=== PATIENT | male | born 1965 | race Caucasian/White ===

== ENCOUNTER 2016-11-13 15:45 | Emergency (ER) | payer OTHER ==
[2016-11-13 15:56] VITALS: RESP 18
--- NOTE | 2016-11-13 16:06 | ED ---
General Adult HPI - General Chief complaint: Chest Pain Stated complaint: Chest Pain Time Seen by Provider: 11/13/16 15:56 Source: patient, RN notes reviewed, old records reviewed Mode of arrival: wheelchair Limitations: no limitations - History of Present Illness Initial comments: This is a 51-year-old male to the ER for evaluation for this ER for evaluation of chest. Her chest pain and heaviness. Took a nitro with help. Patient also complaining of generalized body aches and pains. Patient has history of heart disease history of smoking. No prior recent cardiac evaluation. Patient stated this time his pain remains resolved but was sent to hospital by family doctor for evaluation - Related Data Home Medications Medication Instructions Recorded Confirmed Pregabalin [Lyrica] 150 mg PO TID 09/28/15 11/13/16 traZODone HCL [Desyrel] 100 mg PO HS 09/28/15 11/13/16 Albuterol Inhaler [Ventolin Hfa 2 puff INHALATION RT-Q6H PRN 11/13/16 11/13/16 Inhaler] DULoxetine HCL [Cymbalta] 60 mg PO HS 11/13/16 11/13/16 Umeclidinium [place] [Incruse 62.5 mcg INHALATION RT-DAILY 11/13/16 11/13/16 Ellipta] Allergies Allergy/AdvReac Type Severity Reaction Status Date / Time No Known Allergies Allergy Verified 11/13/16 15:55 Review of Systems ROS Statement: Those systems with pertinent positive or pertinent negative responses have been documented in the HPI. ROS Other: All systems not noted in ROS Statement are negative. Past Medical History Past Medical History: Fibromyalgia, Hyperlipidemia Additional Past Medical History / Comment(s): fibromyalgia Last Myocardial Infarction Date:: unknown History of Any Multi-Drug Resistant Organisms: None Reported Additional Past Surgical History / Comment(s): Spine operation, tumour removed Past Anesthesia/Blood Transfusion Reactions: No Reported Reaction Past Psychological History: Depression Smoking Status: Current every day smoker Past Alcohol Use History: Occasional Past Drug Use History: Marijuana General Exam Limitations: no limitations General appearance: alert, in no apparent distress Head exam: Present: atraumatic, normocephalic, normal inspection Eye exam: Present: normal appearance, PERRL, EOMI. Absent: scleral icterus, conjunctival injection, periorbital swelling ENT exam: Present: normal exam, mucous membranes moist Neck exam: Present: normal inspection. Absent: tenderness, meningismus, lymphadenopathy Respiratory exam: Present: normal lung sounds bilaterally. Absent: respiratory distress, wheezes, rales, rhonchi, stridor Cardiovascular Exam: Present: regular rate, normal rhythm, normal heart sounds. Absent: systolic murmur, diastolic murmur, rubs, gallop, clicks GI/Abdominal exam: Present: soft, normal bowel sounds. Absent: distended, tenderness, guarding, rebound, rigid Extremities exam: Present: normal inspection, full ROM, normal capillary refill. Absent: tenderness, pedal edema, joint swelling, calf tenderness Back exam: Present: normal inspection Neurological exam: Present: alert, oriented X3, CN II-XII intact Psychiatric exam: Present: normal affect, normal mood Skin exam: Present: warm, dry, intact, normal color. Absent: rash Course Vital Signs 11/13/16 11/13/16 15:53 17:01 Temperature 97.9 F 98.4 F Pulse Rate 62 56 L Respiratory 18 Rate Blood Pressure 119/68 136/76 O2 Sat by Pulse 98 97 Oximetry - Reevaluation(s) Reevaluation #1: 11/13/16 17:50 Patient has no chest pain or complaining of generalized body aches and pains EKG Findings - EKG Comments: EKG Findings:: EKG shows sinus rate, rate 55, DE 172, QRS 94, QTC 409 Medical Decision Making - Medical Decision Making 51 LDF reevaluation chest pain. History of heart disease history of smoking, patient has initial EKG and troponin negative, refusing to stay in the hospital at this time understands that he could be having a heart attack currently, patient again still refuses to stay in the hospital able to make decisions - Lab Data Result diagrams: 11/13/16 16:10 11/13/16 16:10 Lab Results 11/13/16 11/13/16 11/13/16 Range/Units 16:10 16:10 16:10 WBC 7.7 (3.8-10.6) k/uL RBC 4.55 (4.30-5.90) m/uL Hgb 15.2 (13.0-17.5) gm/dL Hct 44.2 (39.0-53.0) % MCV 97.1 (80.0-100.0) fL MCH 33.5 (25.0-35.0) pg MCHC 34.5 (31.0-37.0) g/dL RDW 13.0 (11.5-15.5) % Plt Count 165 (150-450) k/uL Neutrophils % 68 % Lymphocytes % 26 % Monocytes % 4 % Eosinophils % 1 % Basophils % 0 % Neutrophils # 5.3 (1.3-7.7) k/uL Lymphocytes # 2.0 (1.0-4.8) k/uL Monocytes # 0.3 (0-1.0) k/uL Eosinophils # 0.1 (0-0.7) k/uL Basophils # 0.0 (0-0.2) k/uL PT (9.0-12.0) sec INR (<1.2) APTT (22.0-30.0) sec Sodium 139 (137-145) mmol/L Potassium 4.0 (3.5-5.1) mmol/L Chloride 109 H (98-107) mmol/L Carbon Dioxide 24 (22-30) mmol/L Anion Gap 6 mmol/L BUN 13 (9-20) mg/dL Creatinine 0.92 (0.66-1.25) mg/dL Est GFR (MDRD) Af Amer >60 (>60 ml/min/1.73 sqM) Est GFR (MDRD) Non-Af >60 (>60 ml/min/1.73 sqM) Glucose 111 H (74-99) mg/dL Calcium 8.9 (8.4-10.2) mg/dL Magnesium 1.8 (1.6-2.3) mg/dL Total Bilirubin 0.4 (0.2-1.3) mg/dL AST 20 (17-59) U/L ALT 19 L (21-72) U/L Alkaline Phosphatase 58 (38-126) U/L Total Creatine Kinase 87 (55-170) U/L CK-MB (CK-2) 0.4 (0.0-2.4) ng/mL CK-MB (CK-2) Rel Index 0.5 Troponin I <0.012 (0.000-0.034) ng/mL Total Protein 6.5 (6.3-8.2) g/dL Albumin 3.9 (3.5-5.0) g/dL Lipase 316 H (23-300) U/L 11/13/16 Range/Units 16:10 WBC (3.8-10.6) k/uL RBC (4.30-5.90) m/uL Hgb (13.0-17.5) gm/dL Hct (39.0-53.0) % MCV (80.0-100.0) fL MCH (25.0-35.0) pg MCHC (31.0-37.0) g/dL RDW (11.5-15.5) % Plt Count (150-450) k/uL Neutrophils % % Lymphocytes % % Monocytes % % Eosinophils % % Basophils % % Neutrophils # (1.3-7.7) k/uL Lymphocytes # (1.0-4.8) k/uL Monocytes # (0-1.0) k/uL Eosinophils # (0-0.7) k/uL Basophils # (0-0.2) k/uL PT 10.4 (9.0-12.0) sec INR 1.0 (<1.2) APTT 24.1 (22.0-30.0) sec Sodium (137-145) mmol/L Potassium (3.5-5.1) mmol/L Chloride (98-107) mmol/L Carbon Dioxide (22-30) mmol/L Anion Gap mmol/L BUN (9-20) mg/dL Creatinine (0.66-1.25) mg/dL Est GFR (MDRD) Af Amer (>60 ml/min/1.73 sqM) Est GFR (MDRD) Non-Af (>60 ml/min/1.73 sqM) Glucose (74-99) mg/dL Calcium (8.4-10.2) mg/dL Magnesium (1.6-2.3) mg/dL Total Bilirubin (0.2-1.3) mg/dL AST (17-59) U/L ALT (21-72) U/L Alkaline Phosphatase (38-126) U/L Total Creatine Kinase (55-170) U/L CK-MB (CK-2) (0.0-2.4) ng/mL CK-MB (CK-2) Rel Index Troponin I (0.000-0.034) ng/mL Total Protein (6.3-8.2) g/dL Albumin (3.5-5.0) g/dL Lipase (23-300) U/L Critical Care Time Critical Care Time: Yes Total Critical Care Time: 31 Disposition Clinical Impression: Chest pain Disposition: HOME SELF-CARE Condition: Undetermined Instructions: Chest Pain (ED) Referrals: Joao Lopez DO [Primary Care Provider] - 1-2 days Maria Luz Bar MD [STAFF PHYSICIAN] - 1-2 days
[2016-11-13 16:23] LABS: Basophils % (A) 0 %; CH 32.4; CHCM 33.5; Eosinophils # (A) 0.1 k/uL (0-0.7); Eosinophils % (A) 1 %; HCT 44.2 % (39.0-53.0); HDW 2.06; HGB 15.2 gm/dL (13.0-17.5); Luc # (Auto) 0.09; Luc % (Auto) 1; Lymphocytes % (A) 26 %; MCH 33.5 pg (25.0-35.0); MCHC 34.5 g/dL (31.0-37.0); MCV 97.1 fL (80.0-100.0); Mean Platelet Volume 8.2; Monocytes # (A) 0.3 k/uL (0-1.0); Monocytes % (A) 4 %; Neutrophils # (A) 5.3 k/uL (1.3-7.7); Neutrophils % (A) 68 %; RBC 4.55 m/uL (4.30-5.90); WBC 7.7 k/uL (3.8-10.6)
--- NOTE | 2016-11-13 16:27 | XR ---
EXAMINATION TYPE: XR chest 2V DATE OF EXAM: 11/13/2016 COMPARISON: Chest x-ray September 28, 2015. HISTORY: Chest pain today. TECHNIQUE: Frontal and lateral views of the chest are obtained. FINDINGS: There is no focal air space opacity, pleural effusion, or pneumothorax seen. The cardiac silhouette size is within normal limits. The osseous structures are intact. IMPRESSION: No acute cardiopulmonary process. No significant change from prior.
[2016-11-13 16:32] LABS: Partial Thromboplastin Time 24.1 sec (22.0-30.0); Prothrombin Time 10.4 sec (9.0-12.0)
[2016-11-13 16:36] LABS: ALT 19 U/L (21-72); AST 20 U/L (17-59); Alkaline Phosphatase 58 U/L (38-126); Anion Gap 6 mmol/L; Blood Urea Nitrogen 13 mg/dL (9-20); Calcium 8.9 mg/dL (8.4-10.2); Carbon Dioxide 24 mmol/L (22-30); Chloride 109 mmol/L (98-107); Glucose 111 mg/dL (74-99); Magnesium 1.8 mg/dL (1.6-2.3); Non-African American GFR(MDRD) >60 (>60 ml/min/1.73 sqM); Sodium 139 mmol/L (137-145); Total Bilirubin 0.4 mg/dL (0.2-1.3); Total Protein 6.5 g/dL (6.3-8.2)
[2016-11-13 16:44] LABS: Creatine Kinase 87 U/L (55-170)
[2016-11-13 16:56] LABS: Creatine Kinase MB 0.4 ng/mL (0.0-2.4); Troponin I <0.012 ng/mL (0.000-0.034)
[2016-11-13 17:03] VITALS: BP 136/76; PULSE 56; TEMP 98.4
[2016-11-13] MEDS ORDERED: MORPHINE SULFATE 4 MG/ML SYRINGE IVP STA (17:48)
== END 2016-11-13 18:00 | disposition home or self-care (01) ==
LOC: EC 15:45
DX: R07.9 Chest pain, unspecified (principal); R52 Pain, unspecified; M79.7 Fibromyalgia; F32.9 Major depressive disorder, single episode, unspecified; F17.200 Nicotine dependence, unspecified, uncomplicated; Z79.899 Other long term (current) drug therapy
CPT/HCPCS: 36415; 80053; 82550; 82553; 83690; 83735; 84484; 85025; 85610; 85730; 71020; 99291; 96374; J2270

== ENCOUNTER → 2016-11-22 | Outpatient (CLI) | payer OTHER ==
--- NOTE | 2016-11-22 15:41 | XR ---
EXAMINATION TYPE: XR ribs RT DATE OF EXAM: 11/22/2016 COMPARISON: NONE HISTORY: Pain TECHNIQUE: 3 views submitted FINDINGS: Osseous structures intact. Visualized lung smith clear. Arthropathy of the AC joint noted. IMPRESSION: 1. No acute displaced rib fracture.
--- NOTE | 2016-11-22 15:42 | XR ---
EXAMINATION TYPE: XR thoracic spine complete DATE OF EXAM: 11/22/2016 COMPARISON: NONE HISTORY: Pain Alignment is anatomic. There is no compression deformities. Vertebral body height and disc interspa sera are maintained. Hypertrophic and degenerative change of the thoracic spine noted. Slight curvatur e of the spine. IMPRESSION: 1. Multilevel degenerative change.
== END | disposition home or self-care (01) ==
LOC: RADXRMAIN 14:45
PROVIDERS: ATTEND Family Medicine
DX: M47.814 Spondylosis without myelopathy or radiculopathy, thoracic region (principal); R07.81 Pleurodynia
CPT/HCPCS: 72072

== ENCOUNTER → 2017-07-02 | Outpatient (CLI) | payer OTHER ==
--- NOTE | 2017-07-02 16:54 | XR ---
EXAMINATION TYPE: XR chest 2V DATE OF EXAM: 07/02/2017 COMPARISON: chest x-ray 11/13/2016 HISTORY: Shortness of breath TECHNIQUE: Frontal and lateral views of the chest are obtained. FINDINGS: There is no focal air space opacity, pleural effusion, or pneumothorax seen. The cardiac silhouette size is within normal limits. Patient is rotated. The osseous structures are intact. IMPRESSION: No acute cardiopulmonary process.
== END | disposition home or self-care (01) ==
LOC: RADXRMAIN 11:01
PROVIDERS: ATTEND Family Medicine
DX: R06.02 Shortness of breath (principal)
CPT/HCPCS: 71046

== ENCOUNTER 2017-10-14 16:56 | Emergency (ER) | payer OTHER ==
[2017-10-14 17:09] VITALS: RESP 20; TEMP 97
[2017-10-14 17:25] LABS: Basophils % (A) 0 %; Eosinophils # (A) 0.1 k/uL (0-0.7); Eosinophils % (A) 1 %; HCT 47.1 % (39.0-53.0); Lymphocytes # (A) 1.1 k/uL (1.0-4.8); Lymphocytes % (A) 8 %; MCH 33.1 pg (25.0-35.0); MCHC 33.9 g/dL (31.0-37.0); MCV 97.4 fL (80.0-100.0); Monocytes # (A) 0.5 k/uL (0-1.0); Monocytes % (A) 3 %; Neutrophils # (A) 11.9 k/uL (1.3-7.7); Neutrophils % (A) 87 %; Platelet Count 185 k/uL (150-450); RBC 4.84 m/uL (4.30-5.90); RDW 13.7 % (11.5-15.5); WBC 13.6 k/uL (3.8-10.6)
--- NOTE | 2017-10-14 17:28 | ED ---
General Adult HPI - General Chief complaint: Chest Pain Stated complaint: Chest Pain Time Seen by Provider: 10/14/17 17:03 Source: EMS, RN notes reviewed, old records reviewed Mode of arrival: EMS Limitations: no limitations - History of Present Illness Initial comments: 52-year-old male history of fibromyalgia, chronic pain, and recurrent chest pain for which he takes nitroglycerin presents for evaluation of chest pain and epigastric pain. Patient was at the court house where he is receiving sentencing for an assault charge. He developed chest pain and epigastric pain. 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 No diaphoresis. Patient states he has had a heart attack before however he is not on any cardiac meds, no history of stenting, only medication he takes for his angina is nitroglycerin which he takes every several days for chest pain. - Related Data Home Medications Medication Instructions Recorded Confirmed Pregabalin [Lyrica] 150 mg PO TID 09/28/15 10/14/17 traZODone HCL [Desyrel] 100 mg PO HS 09/28/15 10/14/17 Albuterol Inhaler [Ventolin Hfa 2 puff INHALATION RT-Q6H PRN 11/13/16 10/14/17 Inhaler] DULoxetine HCL [Cymbalta] 60 mg PO HS 11/13/16 10/14/17 Umeclidinium [place] [Incruse 62.5 mcg INHALATION RT-DAILY 11/13/16 10/14/17 Ellipta] Budesonide/Formoterol Fumarate 2 puff INHALATION BID 10/14/17 10/14/17 [Symbicort 160-4.5 Mcg Inhaler] Ibuprofen [Motrin] 800 mg PO BID 10/14/17 10/14/17 Nitroglycerin Sl Tabs [Nitrostat] 0.4 mg SUBLINGUAL Q5M PRN 10/14/17 10/14/17 Simvastatin [Zocor] 40 mg PO HS 10/14/17 10/14/17 Allergies Allergy/AdvReac Type Severity Reaction Status Date / Time No Known Allergies Allergy Verified 10/14/17 17:34 Review of Systems ROS Statement: Those systems with pertinent positive or pertinent negative responses have been documented in the HPI. ROS Other: All systems not noted in ROS Statement are negative. Past Medical History Past Medical History: Fibromyalgia, Hyperlipidemia Additional Past Medical History / Comment(s): fibromyalgia Last Myocardial Infarction Date:: unknown History of Any Multi-Drug Resistant Organisms: None Reported Additional Past Surgical History / Comment(s): Spine operation, tumour removed Past Anesthesia/Blood Transfusion Reactions: No Reported Reaction Past Psychological History: Depression Smoking Status: Current every day smoker Past Alcohol Use History: Occasional Past Drug Use History: Marijuana General Exam Limitations: no limitations General appearance: alert, in no apparent distress Head exam: Present: atraumatic, normocephalic Eye exam: Present: normal appearance, PERRL, EOMI ENT exam: Present: normal exam Neck exam: Present: normal inspection. Absent: tenderness, meningismus Respiratory exam: Present: normal lung sounds bilaterally, chest wall tenderness. Absent: respiratory distress Cardiovascular Exam: Present: regular rate, normal rhythm GI/Abdominal exam: Present: soft, tenderness (Mild epigastric tenderness to palpation). Absent: distended, guarding Extremities exam: Present: normal inspection, normal capillary refill. Absent: pedal edema, calf tenderness Neurological exam: Present: alert, oriented X3, CN II-XII intact. Absent: motor sensory deficit Psychiatric exam: Present: normal affect, normal mood Skin exam: Present: warm, dry, intact. Absent: cyanosis, diaphoretic Course Vital Signs 10/14/17 10/14/17 17:03 18:00 Temperature 97.0 F L Pulse Rate 57 L 74 Respiratory 20 20 Rate Blood Pressure 160/91 139/86 O2 Sat by Pulse 98 99 Oximetry EKG Findings - EKG Comments: EKG Findings:: EKG sinus rhythm with sinus arrhythmia, right atrial enlargement , incomplete right bundle branch block. Rate of 66, MO interval 164. QRS duration 94, QTC 431. T waves are upright, there is no ST segment elevation or depression. Medical Decision Making - Medical Decision Making 52-year-old male presenting with chest pain and epigastric pain. On exam patient does have some anterior chest wall tenderness and some epigastric abdominal tenderness. No rebound or guarding. Patient does admit to alcohol consumption although he states he has not had a drink in the past several days. Laboratory studies revealed mild leukocytosis 13.6, stable hemoglobin. Troponin is negative. Lipase is obtained, this is positive at 1300. Chest x- ray negative for any acute disease. Patient has no known history of pancreatitis. He is informed of this lab result. He will return with worsening or changing symptoms. He was instructed to maintain a clear liquid diet. Please abstain from alcohol. He will be given outpatient gastroenterology follow-up. Patient is agreeable with this plan. No nausea vomiting in the emergency department. - Lab Data Result diagrams: 10/14/17 17:05 10/14/17 17:05 Lab Results 10/14/17 10/14/17 10/14/17 Range/Units 17:05 17:05 17:05 WBC 13.6 H (3.8-10.6) k/uL RBC 4.84 (4.30-5.90) m/uL Hgb 16.0 (13.0-17.5) gm/dL Hct 47.1 (39.0-53.0) % MCV 97.4 (80.0-100.0) fL MCH 33.1 (25.0-35.0) pg MCHC 33.9 (31.0-37.0) g/dL RDW 13.7 (11.5-15.5) % Plt Count 185 (150-450) k/uL Neutrophils % 87 % Lymphocytes % 8 % Monocytes % 3 % Eosinophils % 1 % Basophils % 0 % Neutrophils # 11.9 H (1.3-7.7) k/uL Lymphocytes # 1.1 (1.0-4.8) k/uL Monocytes # 0.5 (0-1.0) k/uL Eosinophils # 0.1 (0-0.7) k/uL Basophils # 0.0 (0-0.2) k/uL PT (9.0-12.0) sec INR (<1.2) APTT (22.0-30.0) sec Sodium 138 (137-145) mmol/L Potassium 3.8 (3.5-5.1) mmol/L Chloride 104 (98-107) mmol/L Carbon Dioxide 20 L (22-30) mmol/L Anion Gap 14 mmol/L BUN 16 (9-20) mg/dL Creatinine 0.89 (0.66-1.25) mg/dL Est GFR (CKD-EPI)AfAm >90 (>60 ml/min/1.73 sqM) Est GFR (CKD-EPI)NonAf >90 (>60 ml/min/1.73 sqM) Glucose 109 H (74-99) mg/dL Calcium 9.5 (8.4-10.2) mg/dL Magnesium 2.0 (1.6-2.3) mg/dL Total Bilirubin 0.6 (0.2-1.3) mg/dL AST 19 (17-59) U/L ALT 17 L (21-72) U/L Alkaline Phosphatase 67 (38-126) U/L Total Creatine Kinase 49 L (55-170) U/L CK-MB (CK-2) <0.2 (0.0-2.4) ng/mL CK-MB (CK-2) Rel Index Troponin I <0.012 (0.000-0.034) ng/mL NT-Pro-B Natriuret Pep pg/mL Total Protein 7.3 (6.3-8.2) g/dL Albumin 4.6 (3.5-5.0) g/dL Lipase 1316 H (23-300) U/L 10/14/17 10/14/17 Range/Units 17:05 17:05 WBC (3.8-10.6) k/uL RBC (4.30-5.90) m/uL Hgb (13.0-17.5) gm/dL Hct (39.0-53.0) % MCV (80.0-100.0) fL MCH (25.0-35.0) pg MCHC (31.0-37.0) g/dL RDW (11.5-15.5) % Plt Count (150-450) k/uL Neutrophils % % Lymphocytes % % Monocytes % % Eosinophils % % Basophils % % Neutrophils # (1.3-7.7) k/uL Lymphocytes # (1.0-4.8) k/uL Monocytes # (0-1.0) k/uL Eosinophils # (0-0.7) k/uL Basophils # (0-0.2) k/uL PT 10.2 (9.0-12.0) sec INR 1.0 (<1.2) APTT 23.3 (22.0-30.0) sec Sodium (137-145) mmol/L Potassium (3.5-5.1) mmol/L Chloride (98-107) mmol/L Carbon Dioxide (22-30) mmol/L Anion Gap mmol/L BUN (9-20) mg/dL Creatinine (0.66-1.25) mg/dL Est GFR (CKD-EPI)AfAm (>60 ml/min/1.73 sqM) Est GFR (CKD-EPI)NonAf (>60 ml/min/1.73 sqM) Glucose (74-99) mg/dL Calcium (8.4-10.2) mg/dL Magnesium (1.6-2.3) mg/dL Total Bilirubin (0.2-1.3) mg/dL AST (17-59) U/L ALT (21-72) U/L Alkaline Phosphatase (38-126) U/L Total Creatine Kinase (55-170) U/L CK-MB (CK-2) (0.0-2.4) ng/mL CK-MB (CK-2) Rel Index Troponin I (0.000-0.034) ng/mL NT-Pro-B Natriuret Pep 42 pg/mL Total Protein (6.3-8.2) g/dL Albumin (3.5-5.0) g/dL Lipase (23-300) U/L Disposition Clinical Impression: Pancreatitis, Chest pain Disposition: HOME SELF-CARE Condition: Fair Instructions: Chest Pain (ED), Pancreatitis (ED) Is patient prescribed a controlled substance at d/c from ED?: No Referrals: Joao Lopez DO [Primary Care Provider] - 1-2 days Desmond Cortez MD [STAFF PHYSICIAN] - 1-2 days Time of Disposition: 18:25
[2017-10-14 17:41] LABS: Partial Thromboplastin Time 23.3 sec (22.0-30.0); Prothrombin Time 10.2 sec (9.0-12.0)
--- NOTE | 2017-10-14 17:41 | XR ---
EXAMINATION TYPE: XR chest 2V DATE OF EXAM: 10/14/2017 COMPARISON: 07/02/2017 HISTORY: Chest pain TECHNIQUE: Frontal and lateral views of the chest are obtained. FINDINGS: Heart and mediastinum are normal. Lungs are clear. Diaphragm is normal. There are chest le ads. Bony thorax is intact. IMPRESSION: Normal chest. No change.
[2017-10-14 17:43] LABS: Creatine Kinase 49 U/L (55-170)
[2017-10-14 17:45] LABS: ALT 17 U/L (21-72); AST 19 U/L (17-59); Albumin 4.6 g/dL (3.5-5.0); Alkaline Phosphatase 67 U/L (38-126); Anion Gap 14 mmol/L; Blood Urea Nitrogen 16 mg/dL (9-20); Calcium 9.5 mg/dL (8.4-10.2); Carbon Dioxide 20 mmol/L (22-30); Chloride 104 mmol/L (98-107); Glucose 109 mg/dL (74-99); Lipase 1316 U/L (23-300); Potassium 3.8 mmol/L (3.5-5.1); Sodium 138 mmol/L (137-145); Total Bilirubin 0.6 mg/dL (0.2-1.3); Total Protein 7.3 g/dL (6.3-8.2)
[2017-10-14 17:55] LABS: Creatine Kinase MB <0.2 ng/mL (0.0-2.4); Troponin I <0.012 ng/mL (0.000-0.034)
[2017-10-14 18:03] VITALS: BP 139/86; PULSE 74
== END 2017-10-14 18:58 | disposition home or self-care (01) ==
LOC: EC 16:56
DX: K85.90 Acute pancreatitis without necrosis or infection, unspecified (principal); R07.89 Other chest pain; D72.829 Elevated white blood cell count, unspecified; R51 Headache; H92.02 Otalgia, left ear; M79.7 Fibromyalgia; E78.5 Hyperlipidemia, unspecified; F32.9 Major depressive disorder, single episode, unspecified; F17.200 Nicotine dependence, unspecified, uncomplicated; Z79.1 Long term (current) use of non-steroidal anti-inflammatories (NSAID); Z79.51 Long term (current) use of inhaled steroids; Z79.899 Other long term (current) drug therapy
CPT/HCPCS: 36415; 71046; 80053; 82550; 82553; 83690; 83735; 83880; 84484; 85025; 85610; 85730; 93005; 99285

== ENCOUNTER 2017-11-15 22:23 | Emergency (ER) | payer OTHER ==
[2017-11-15 22:50] VITALS: BP 107/60; PULSE 75; RESP 20; TEMP 98.1
[2017-11-16] MEDS ORDERED: DIPH,PERTUS(ACELL)TETVAC-LF 0.5 ML VIAL IM ONE (00:20)
--- NOTE | 2017-11-16 00:48 | XR ---
EXAMINATION TYPE: XR hand complete LT DATE OF EXAM: 11/16/2017 COMPARISON: NONE HISTORY: Metacarpal swelling TECHNIQUE: 4 views FINDINGS: Metacarpals are intact. I see no fracture nor dislocation. Joint spaces are normal. There a re no erosions. IMPRESSION: Negative left hand exam.
--- NOTE | 2017-11-16 00:50 | XR ---
EXAMINATION TYPE: XR finger RT DATE OF EXAM: 11/16/2017 COMPARISON: NONE HISTORY: Laceration fourth digit TECHNIQUE: 3 views FINDINGS: I see no fracture nor dislocation. Joint spaces are fairly normal. There are no erosions. IMPRESSION: No acute abnormality of the right ring finger. :
--- NOTE | 2017-11-16 01:40 | ED ---
General Adult HPI - General Chief complaint: Wound/Laceration Stated complaint: Finger Lac Time Seen by Provider: 11/16/17 00:09 Source: patient, family, RN notes reviewed Mode of arrival: ambulatory Limitations: no limitations - History of Present Illness Initial comments: 52-year-old male presents to the emergency department for a chief complaint of laceration 30 hours. Patient states he cut his right ring finger on a curved blade but was unable to come to the emergency department yesterday. Patient also states he accidentally hit his left hand against a piece of plywood and now has swelling in the left hand. This happened about 3 days ago. She denies fevers or chills. Patient denies drainage from the laceration. Patient denies any other injuries. Patient has no other complaints at this time including shortness of breath, chest pain, abdominal pain, nausea or vomiting, headache, or visual changes. - Related Data Home Medications Medication Instructions Recorded Confirmed Pregabalin [Lyrica] 150 mg PO TID 09/28/15 10/14/17 traZODone HCL [Desyrel] 100 mg PO HS 09/28/15 10/14/17 Albuterol Inhaler [Ventolin Hfa 2 puff INHALATION RT-Q6H PRN 11/13/16 10/14/17 Inhaler] DULoxetine HCL [Cymbalta] 60 mg PO HS 11/13/16 10/14/17 Umeclidinium [place] [Incruse 62.5 mcg INHALATION RT-DAILY 11/13/16 10/14/17 Ellipta] Budesonide/Formoterol Fumarate 2 puff INHALATION BID 10/14/17 10/14/17 [Symbicort 160-4.5 Mcg Inhaler] Ibuprofen [Motrin] 800 mg PO BID 10/14/17 10/14/17 Nitroglycerin Sl Tabs [Nitrostat] 0.4 mg SUBLINGUAL Q5M PRN 10/14/17 10/14/17 Simvastatin [Zocor] 40 mg PO HS 10/14/17 10/14/17 Previous Rx's Medication Instructions Recorded Cephalexin [Keflex] 500 mg PO Q8H #20 cap 11/16/17 Allergies Allergy/AdvReac Type Severity Reaction Status Date / Time No Known Allergies Allergy Verified 11/15/17 22:50 Review of Systems ROS Statement: Those systems with pertinent positive or pertinent negative responses have been documented in the HPI. ROS Other: All systems not noted in ROS Statement are negative. Past Medical History Past Medical History: Fibromyalgia, Hyperlipidemia Additional Past Medical History / Comment(s): fibromyalgia Last Myocardial Infarction Date:: unknown History of Any Multi-Drug Resistant Organisms: None Reported Additional Past Surgical History / Comment(s): Spine operation, tumour removed Past Anesthesia/Blood Transfusion Reactions: No Reported Reaction Past Psychological History: Depression Smoking Status: Current every day smoker Past Alcohol Use History: Occasional Past Drug Use History: Marijuana General Exam Limitations: no limitations General appearance: alert, in no apparent distress Head exam: Present: atraumatic, normocephalic, normal inspection Eye exam: Present: normal appearance. Absent: scleral icterus, conjunctival injection ENT exam: Present: normal exam, mucous membranes moist Neck exam: Present: normal inspection, full ROM. Absent: tenderness, meningismus, lymphadenopathy Respiratory exam: Present: normal lung sounds bilaterally. Absent: respiratory distress, wheezes, rales, rhonchi, stridor Cardiovascular Exam: Present: regular rate, normal rhythm, normal heart sounds. Absent: systolic murmur, diastolic murmur, rubs, gallop, clicks Extremities exam: Present: full ROM (Full range of motion of the right fourth digit including MCP, PIP, and DIP joints. Full range of motion of left hand), tenderness (Tenderness over the third MCP joint of the left hand with minor swelling.), normal capillary refill (Capillary refill less than 2 seconds in the right and left upper extremities. Radial pulse 2+ in upper extremities bilaterally.), other (1.5 cm laceration to the finger pad of the right fourth digit. Bleeding controlled. No spreading redness or signs of infection at this time. No drainage) Neurological exam: Present: alert, oriented X3, CN II-XII intact Psychiatric exam: Present: normal affect, normal mood Course Vital Signs 11/15/17 22:45 Temperature 98.1 F Pulse Rate 75 Respiratory 20 Rate Blood Pressure 107/60 O2 Sat by Pulse 98 Oximetry Medical Decision Making - Medical Decision Making 52-year-old male presents to the emergency determine for chief complaint of laceration on the right ring finger about 30 hours ago. X-ray of the right finger is negative. Discussed with patient that because wound was open for so long it is unwise to close it at this point as chance of infection can increase. Therefore wound was soaked in soap and water and cleaned with iodine. It was closed with Steri-Strips. Patient also has left hand pain after hitting it against a pipe ordered. X-ray was negative of this. Patient was educated on rice therapy. Patient will also be given Keflex to prevent any infection in the finger. He was given tetanus in the emergency department. Discussed signs of infection and return parameters extensively. Patient aware of close proximity to tendon and need to closely monitor. He will follow up with primary care in 1-2 days for wound recheck Disposition Clinical Impression: Laceration, Left hand pain Disposition: HOME SELF-CARE Condition: Good Instructions: Laceration (ED), RICE Therapy (ED) Additional Instructions: Take prescriptions as directed. Please take Motrin and Tylenol for pain. Please rest ice and elevate the left hand. Keep Steri-Strips on until they fall off. Keep the area clean. Monitor for signs of infection such as spreading redness or streaking redness and return if these occur. Follow-up with primary care for wound recheck in one to 2 days. Prescriptions: Cephalexin [Keflex] 500 mg PO Q8H #20 cap Is patient prescribed a controlled substance at d/c from ED?: No Referrals: Joao Lopez DO [Primary Care Provider] - 1-2 days Time of Disposition: 01:37
== END 2017-11-16 01:54 | disposition home or self-care (01) ==
LOC: EC 22:23
DX: S61.214A Laceration without foreign body of right ring finger without damage to nail, initial encounter (principal); M79.642 Pain in left hand; M79.7 Fibromyalgia; E78.5 Hyperlipidemia, unspecified; F32.9 Major depressive disorder, single episode, unspecified; F17.200 Nicotine dependence, unspecified, uncomplicated; Z23 Encounter for immunization; Z79.1 Long term (current) use of non-steroidal anti-inflammatories (NSAID); Z79.51 Long term (current) use of inhaled steroids; Z79.899 Other long term (current) drug therapy; W26.8XXA Contact with other sharp object(s), not elsewhere classified, initial encounter; Y92.89 Other specified places as the place of occurrence of the external cause
CPT/HCPCS: 90471; 90715; 99283

== ENCOUNTER → 2018-03-24 | Outpatient (CLI) | payer OTHER ==
--- NOTE | 2018-03-24 13:19 | XR ---
EXAMINATION TYPE: XR knee complete LT DATE OF EXAM: 03/24/2018 COMPARISON: NONE HISTORY: Pain TECHNIQUE: Four views are submitted. FINDINGS: Joint spaces are preserved. There is soft tissue density or fluid within the suprapatellar bursa and there is hypertrophic spurring and narrowing of the joint space. There is a tiny density along the me dial compartment of the knee joint which may represent chondrocalcinosis or may be external to the april int. IMPRESSION: 1. Hypertrophic arthropathy with a suprapatellar bursal fluid collection. Recommend follow-up MRI.
--- NOTE | 2018-03-24 13:33 | XR ---
EXAMINATION TYPE: XR finger LT DATE OF EXAM: 03/24/2018 COMPARISON: NONE HISTORY: Pain TECHNIQUE: Three views are submitted. FINDINGS: There is a displaced intra-articular fracture involving the base of the distal phalanx. Soft tissue e joi noted. IMPRESSION: 1. Displaced intra-articular fracture along the dorsal surface distal phalanx fourth digit.
== END ==
LOC: RADXRMAIN 12:47
PROVIDERS: ATTEND Physician Assistant
DX: S62.635A Displaced fracture of distal phalanx of left ring finger, initial encounter for closed fracture (principal); M12.862 Other specific arthropathies, not elsewhere classified, left knee

== ENCOUNTER → 2018-11-07 | Outpatient (CLI) | payer OTHER ==
--- NOTE | 2018-11-07 14:08 | XR ---
EXAMINATION TYPE: XR chest 2V DATE OF EXAM: 11/07/2018 COMPARISON: Prior chest x-ray 10/14/2017 HISTORY: Chest pain TECHNIQUE: Frontal and lateral views of the chest are obtained. FINDINGS: There is no focal air space opacity, pleural effusion, or pneumothorax seen. The cardiac silhouette size is within normal limits. There is mild spinal curvature. The osseous structures are intact. IMPRESSION: No acute cardiopulmonary process.
== END | disposition home or self-care (01) ==
LOC: RADXRMAIN 13:41
PROVIDERS: ATTEND Physician Assistant
DX: R07.89 Other chest pain (principal)
CPT/HCPCS: 71046

== ENCOUNTER → 2018-11-17 | Outpatient (CLI) | payer OTHER ==
[~2018-11-17] MED LIST: REGADENOSON 0.4 MG/5 ML SYRINGE IV ONE
--- NOTE | 2018-11-17 10:19 | P.STRESS ---
- Stress Test Note Stress Test Results/Findings: Exam Performed: NM stress lexiscan cardiolite Exam Date: 11/17/18 Reason for Exam: CP, JACKY Height: 5 ft 5 in Weight: 59.874 kg Protocol: LEXISCAN CARDIOLITE STRESS Stage: NA Duration of Exercise: NA Resting Heart Rate: 47 Resting Blood Pressure: 137/79 Maximum Achieved Heart Rate: 88 Maximum Achieved Blood Pressure: 137/79 85% PMHR: 142 100% PMHR: 167 METS: NA Technologist Comment: Stress Test Results/Findings: Baseline heart rate 47 beats a minute Baseline blood pressure 137/79 mmHg jessica ent is received Lexiscan infusion per protocol Baseline 12-lead ECG showed sinus bradycardia normal MO interval incomplete right bundle branch block normal ST segments Patient became nauseous and throwing up post infusion Subtle ST depression in the lateral precordial leads of 0.5 mm which resolved quickly Blood pressure remained stable heart rates remained stable Nuclear portion will be reported separately Impression Mild ECG abnormalities of the 0.[address] depression in the lateral precordial leads with Lexiscan infusion
--- NOTE | 2018-11-17 11:17 | NM ---
EXAMINATION TYPE: NM stress lexiscan cardiolite DATE OF EXAM: 11/17/2018 COMPARISON: 03/07/2010 HISTORY: Chest pain TECHNIQUE: After the intravenous administration of 10.1 mCi Tc 99m Sestamibi - Cardiolite resting SP ECT images acquired 40 minutes post injection. The patient received 0.4mg Lexiscan, 25.9 mCi Tc 99m Sestamibi - Stress images obtained [address] injection FINDINGS: Review of stress and rest SPECT images demonstrates area stress-induced reversible ischemia involving the inferior and inferolateral myocardium.. Gated analysis shows normal wall motion with an estimat ed left ventricular ejection fraction of 51 %. Report called to the referring physician. IMPRESSION: 1. Findings are compatible with stress-induced reversible ischemia involving the inferior and inferio r lateral myocardium. A [place] level critical message alert has been initiated for Joao Lopez DO via the [employer] Critical Results System on 11/17/2018 11:14 AM. This message alert has been sent to Joao donato DO via the preferences provided by the clinician for the receipt of Radiology Critical Findings. Message ID [id number].
--- NOTE | 2018-11-17 12:55 | EST ---
Stress Test Results/Findings: Exam Performed: NM stress lexiscan cardiolite Exam Date: 11/17/18 Reason for Exam: CP, JACKY Height: 5 ft 5 in Weight: 59.874 kg Protocol: LEXISCAN CARDIOLITE STRESS Stage: NA Duration of Exercise: NA Resting Heart Rate: 47 Resting Blood Pressure: 137/79 Maximum Achieved Heart Rate: 88 Maximum Achieved Blood Pressure: 137/79 85% PMHR: 142 100% PMHR: 167 METS: NA Technologist Comment: Stress Test Results/Findings: Baseline heart rate 47 beats a minute Baseline blood pressure 137/79 mmHg patient is received Lexiscan infusion per protocol Baseline 12-lead ECG showed sinus bradycardia normal AL interval incomplete right bundle branch block normal ST segments Patient became nauseous and throwing up post infusion Subtle ST depression in the lateral precordial leads of 0.5 mm which resolved quickly Blood pressure remained stable heart rates remained stable Nuclear portion will be reported separately Impression Mild ECG abnormalities of the 0.[address] depression in the lateral precordial leads with Lexiscan infusion Additional CC's: Joao GOLDEN
== END | disposition home or self-care (01) ==
LOC: RADNMMAIN 07:43
PROVIDERS: ATTEND Family Medicine
DX: R94.31 Abnormal electrocardiogram [ECG] [EKG] (principal); R07.89 Other chest pain
CPT/HCPCS: 93017; 78452; A9500; J2785

== ENCOUNTER → 2018-11-25 | Outpatient (CLI) | payer OTHER ==
--- NOTE | 2018-11-26 02:31 | MR ---
EXAMINATION TYPE: MR knee LT wo con DATE OF EXAM: 11/25/2018 COMPARISON: None HISTORY: Pain in left knee TECHNIQUE: Multiplanar, multisequence imaging of the left knee is performed without IV contrast. FINDINGS: The anterior and posterior cruciate ligaments are intact. There is a mild knee joint effusion. I see no bony destructive process. There is no evidence of a fracture. Joint spaces are fairly normal. The collateral ligaments appear intact. The lateral meniscus shows a small vertical tear of the anterior horn. There is a oblique horizontal tear of the posterior horn of the medial meniscus extending to the infe rior surface. The patella is intact. I see no focal bone destruction. IMPRESSION: Small knee joint effusion. Small vertical tear anterior horn of the lateral meniscus. Oblique tear posterior horn medial meniscus.
== END | disposition home or self-care (01) ==
LOC: RADMRIMAIN 16:35
PROVIDERS: ATTEND Physician Assistant
DX: S83.282A Other tear of lateral meniscus, current injury, left knee, initial encounter (principal); S83.242A Other tear of medial meniscus, current injury, left knee, initial encounter

== ENCOUNTER 2018-12-01 06:21 | Day surgery (SDC) | payer OTHER ==
[2018-12-01] MEDS ORDERED: ASPIRIN 325 MG TAB PO STA (06:53)
[2018-12-01] MEDS ORDERED: NITROGLYCERIN SL TABS 0.4 MG TAB SUBLINGUAL PRN ×3 (06:53→08:53)
[2018-12-01] MEDS ORDERED: ATORVASTATIN 80 MG TAB PO STA (06:53)
[2018-12-01] MEDS ORDERED: ALPRAZolam 0.5 MG TAB PO PRN (06:53)
[2018-12-01] MEDS ORDERED: SODIUM CHLORIDE 0.9% 1,000 ML in EMPTY BAG 1 BAG IV ONE (06:53)
[2018-12-01] MEDS ORDERED: ALPRAZolam 0.25 MG TAB PO PRN (06:53)
[2018-12-01 07:27] LABS: Basophils # (A) 0.1 k/uL (0-0.2); Basophils % (A) 1 %; Eosinophils # (A) 0.2 k/uL (0-0.7); Eosinophils % (A) 2 %; HCT 46.9 % (39.0-53.0); HGB 15.4 gm/dL (13.0-17.5); Lymphocytes # (A) 1.8 k/uL (1.0-4.8); Lymphocytes % (A) 25 %; MCH 33.9 pg (25.0-35.0); MCV 102.7 fL (80.0-100.0); Macrocytosis Slight; Mean Platelet Volume 8.7; Monocytes # (A) 0.5 k/uL (0-1.0); Monocytes % (A) 7 %; Neutrophils # (A) 4.6 k/uL (1.3-7.7); Neutrophils % (A) 64 %; Platelet Count 181 k/uL (150-450); RBC 4.56 m/uL (4.30-5.90); RDW 14.5 % (11.5-15.5); WBC 7.1 k/uL (3.8-10.6)
[2018-12-01 07:38] LABS: African American GFR (CKD) >90 (>60 ml/min/1.73 sqM); Anion Gap 7 mmol/L; Blood Urea Nitrogen 15 mg/dL (9-20); Calcium 9.8 mg/dL (8.4-10.2); Carbon Dioxide 25 mmol/L (22-30); Chloride 110 mmol/L (98-107); Glucose 104 mg/dL (74-99); Non-African American GFR(CKD) 85 (>60 ml/min/1.73 sqM); Potassium 4.7 mmol/L (3.5-5.1); Sodium 142 mmol/L (137-145)
[2018-12-01] MEDS ORDERED: fentaNYL (PF) 50 MCG/ML 2 ML AMP IV ONE (07:57)
[2018-12-01] MEDS: MIDAZOLAM PF (FBP) 2 MG/2 ML VIAL IV ONE ×2 (07:57→08:01)
[2018-12-01] MEDS ORDERED: LIDOCAINE 1% INJ 10MG/ML (20 ML MDV) SQ ONE (08:00)
[2018-12-01] MEDS ORDERED: BIVALIRUDIN BOLUS 250 MG/50 ML IV ONE (08:20)
[2018-12-01] MEDS ORDERED: BIVALIRUDIN 250 MG in SODIUM CHLORIDE 0.9% 50 ML IV ONE (08:21)
[2018-12-01] MEDS ORDERED: ATROPINE SULFATE 0.1 MG/ML 10ML SYRINGE IV ONE (08:26)
[2018-12-01] MEDS ORDERED: NITROGLYCERIN 1000MCG/10ML SYRINGE INTRACORON ONE (08:33)
[2018-12-01] MEDS ORDERED: IOPAMIDOL-370 100ML BTL INJ ONE (08:39)
[2018-12-01] MEDS ORDERED: IOPAMIDOL-300 50ML BTL INJ ONE (08:44)
[2018-12-01] MEDS ORDERED: PRASUGREL 10 MG TAB PO ONE (08:50)
[2018-12-01] MEDS ORDERED: ALBUTEROL NEBULIZED 2.5 MG/3 ML INHALATION PRN (08:52)
[2018-12-01] MEDS ORDERED: ATROPINE SULFATE 0.1 MG/ML 10ML SYRINGE IV PRN (08:53)
[2018-12-01] MEDS ORDERED: ZOLPIDEM 5 MG TAB PO PRN (08:53)
[2018-12-01] MEDS ORDERED: RX INFO: IV CONTRAST WAS GIVEN 1 EACH MISC MISCELLANE PRN (08:53)
[2018-12-01] MEDS ORDERED: MAG HYDROX/AL HYDROX/SIMETH 30 ML CUP PO PRN (08:53)
--- NOTE | 2018-12-01 09:00 | CC ---
CARDIAC CATHETERIZATION REPORT INDICATION: Chest pain with abnormal stress test. PROCEDURE NOTE: After obtaining informed consent, left heart catheterization and coronary angiogram were performed via the right femoral artery using standard Jimbo catheters. The patient tolerated the procedure well without any obvious immediate complications. Patient received moderate conscious sedation. Total sedation time was 15 minutes. FINDINGS: 1. HEMODYNAMICS: Left ventricular end-diastolic pressure was 12 to 14 mm. There is no significant gradient across the aortic valve. 2. LEFT VENTRICULOGRAM: Left ventriculogram is not performed. 3. ANGIOGRAPHIC DATA: Left main coronary artery appears calcified but is free of significant stenosis. Divides into left anterior descending coronary artery and circumflex coronary artery. Circumflex coronary artery is subtotally occluded in its proximal part. There are extensive collaterals to the distal RCA. LAD has an occluded small caliber diagonal branch with a mild to moderate atherosclerotic plaque in the LAD. LAD itself is a very small caliber vessel. The LAD in the proximal part appears calcified but there are no focal hemodynamically significant lesion. Right coronary artery is a large dominant vessel that shows a 95% stenosis in its midportion. There is a mild to moderate atherosclerotic plaque in the proximal part also. CONCLUSIONS: 1. Chronically occluded circumflex coronary artery. 2. A 95% focal stenosis in the mid RCA. 3. Collaterals from the left to right system. PLAN: Angiographic data was reviewed by Dr. Stafford the on-call meter tester who will proceed with angioplasty of the same. MMDEXTER / ROBLESN: [id number] /
--- NOTE | 2018-12-01 09:03 | LTR ---
December 01, 2018 Re: Isrrael Matt Dear Dr. Lopez: I performed cardiac catheterization on Isrrael Gutierrez. A detailed catheterization note is enclosed for your records. In brief, the cardiac catheterization reveals a 95% stenosis involving mid RCA and chronically occluded circumflex coronary artery. The patient's stress test abnormalities probably related to the lesion in the right coronary artery and the patient will undergo angioplasty with stent placement of the same. Sincerely, MD JENNIFER Troy / ROBLESN: [id number] /
--- NOTE | 2018-12-01 09:30 | PTCA ---
PERCUTANEOUSTRANS CORORONARY ANGIOGRAPHY DATE OF SERVICE: December 01, 2018 PERFORMING PHYSICIAN: Isaías Stafford MD, certified travel counselor. PROCEDURE PERFORMED: Successful stenting of the mid right coronary artery using 2.75 x 15 mm Xience SHASTA which was postdilated using 3 mm balloon with an excellent angiographic result and reduction of stenosis from 100% to 0%. INDICATION: This is a 53-year-old gentleman who sees Dr. Ayala in the office as an outpatient who was experiencing symptoms of chest discomfort and underwent myocardial perfusion imaging stress test and that revealed inferolateral ischemia. He underwent a heart catheterization earlier today by Dr. Ayala and that revealed occluded RCA in the mid portion on short segment with contralateral collaterals. Because of that, a PCI of the RCA was advised. APPROACH: Right common femoral artery. COMPLICATION: None. LEVEL OF SEDATION: Moderate with sedation length of 15 minutes. PROCEDURE DESCRIPTION: Please refer to diagnostic heart catheterization that was performed by Dr. Ayala earlier today. Anticoagulation was initiated using Angiomax. Subsequently I did engage the RCA using JR3.5 guide. A Whisper wire was used to wire the RCA and cross the lesion. After that I did balloon angioplasty using 1.5 mm balloon and then 2.5 mm balloon. After that I did place a 2.75 x 15 mm Xience in the mid RCA where the stent was positioned under fluoroscopy guidance and deployed under 16 atmospheres for 20 seconds. I postdilated the stent using 3 mm NC balloon. The final angiogram showed excellent angiographic results and the procedure was completed without any complication. POSTPROCEDURE MANAGEMENT: 1. Dual antiplatelet therapy. 2. Risk factors modifications. 3. Follow up with the patient. MMODL / IJN: [id number] /
[2018-12-01] MEDS: PREGABALIN 75 MG CAP PO SCH ×3 (12:21→19:40)
[2018-12-01] MEDS: SODIUM CHLORIDE 0.9% 1,000 ML IV SCH ×2 (12:22→19:40)
[2018-12-01 13:38] VITALS: BMI 21.9
[2018-12-01] MEDS: SYMBICORT 160-4.5 MCG INHALER INHALATION SCH (20:00)
[2018-12-01] MEDS ORDERED: DULoxetine HCL 60 MG CAPSULE.DR PO SCH (21:00)
[2018-12-01] MEDS ORDERED: traZODone HCL 100 MG TAB PO SCH (21:00)
[2018-12-02 04:22] VITALS: PULSE 75
[2018-12-02 06:12] LABS: Basophils % (A) 1 %; Eosinophils # (A) 0.1 k/uL (0-0.7); Eosinophils % (A) 2 %; HCT 46.7 % (39.0-53.0); HGB 15.1 gm/dL (13.0-17.5); Lymphocytes # (A) 1.7 k/uL (1.0-4.8); Lymphocytes % (A) 19 %; MCH 33.3 pg (25.0-35.0); MCHC 32.3 g/dL (31.0-37.0); Macrocytosis Slight; Mean Platelet Volume 8.7; Monocytes # (A) 0.6 k/uL (0-1.0); Monocytes % (A) 7 %; Neutrophils # (A) 6.4 k/uL (1.3-7.7); Neutrophils % (A) 71 %; Platelet Count 171 k/uL (150-450); RBC 4.53 m/uL (4.30-5.90); RDW 14.6 % (11.5-15.5)
[2018-12-02 06:23] LABS: African American GFR (CKD) >90 (>60 ml/min/1.73 sqM); Anion Gap 5 mmol/L; Blood Urea Nitrogen 14 mg/dL (9-20); Calcium 9.1 mg/dL (8.4-10.2); Carbon Dioxide 25 mmol/L (22-30); Chloride 108 mmol/L (98-107); Glucose 105 mg/dL (74-99); Non-African American GFR(CKD) 85 (>60 ml/min/1.73 sqM); Potassium 4.2 mmol/L (3.5-5.1); Sodium 138 mmol/L (137-145)
[2018-12-02] MEDS: SYMBICORT 160-4.5 MCG INHALER INHALATION SCH (08:21)
[2018-12-02] MEDS: IPRATROPIUM 0.5 MG/2.5 ML NEBU INHALATION SCH ×2 (08:22→11:17)
[2018-12-02] MEDS: PREGABALIN 75 MG CAP PO SCH (08:54)
[2018-12-02] MEDS ORDERED: PRASUGREL 10 MG TAB PO SCH (09:00)
[2018-12-02] MEDS ORDERED: ASPIRIN 325 MG TAB PO SCH (09:00)
[2018-12-02 09:07] VITALS: BP 126/62; RESP 14; TEMP 98.2
--- NOTE | 2018-12-02 11:19 | DS ---
DISCHARGE SUMMARY DATE OF ADMISSION: 12/01/2018 DATE OF DISCHARGE: 12/02/2018 PROCEDURES PERFORMED: 1. Left heart catheterization. 2. Angioplasty with stent placement of right coronary artery. HOSPITAL COURSE: This is a 53-year-old gentleman that was brought in electively for an abnormal stress test to undergo cardiac catheterization that revealed critical stenosis involving mid RCA with chronic occlusion of circumflex coronary artery. He underwent angioplasty with stent placement of the right coronary artery and has a large RCA after the angioplasty. The patient has done well. CONDITION AT THE TIME OF DISCHARGE: He is doing well, free of symptoms. Vital signs are stable. There is no jugular venous distention. Chest is clear to auscultation and percussion. Heart exam reveals first and second heart sounds. No gallop. Groin is free of bleeding, bruit and hematoma. Foot pulses are intact. EKG shows sinus bradycardia without any ST-T wave changes. LABS: Labs show a hemoglobin of 15.1, platelet count is 170. Potassium is 4.2. Creatinine is 1. DISCHARGE MEDICATIONS: Patient will go home on aspirin, either Plavix or Effient, sublingual nitroglycerin. Continue his medications along with statin. The patient is not going home on any beta blockers as he is bradycardic at rest. FOLLOWUP: He will be followed up in my office in a week's time. MARYL / IJN: [id number] /
[2018-12-02] MEDS ORDERED: ATORVASTATIN 80 MG TAB PO SCH (21:00)
== END 2018-12-02 11:58 | disposition home or self-care (01) ==
LOC: CATHCVL 06:21 → 3SCARD 08:58 → CATHCVL 12-02 11:58
PROVIDERS: ATTEND Internal Medicine Cardiovascular Disease
DX: I25.10 Atherosclerotic heart disease of native coronary artery without angina pectoris (principal); I25.84 Coronary atherosclerosis due to calcified coronary lesion; F17.210 Nicotine dependence, cigarettes, uncomplicated; Z79.82 Long term (current) use of aspirin; Z79.899 Other long term (current) drug therapy
CPT/HCPCS: 93458; 80048 ×2; 85025 ×2; C9600; C1769 ×2; C1725 ×3; C1894; C1887; C1760; C1874; J2001; J0461; J3010; J0583; Q9967 ×2; J2250

== ENCOUNTER 2018-12-11 00:55 | Emergency (ER) | payer OTHER ==
[2018-12-11] MEDS ORDERED: SODIUM CHLORIDE 0.9% 1,000 ML IV STA (00:59)
[2018-12-11 01:01] VITALS: RESP 18; TEMP 98.5
[2018-12-11 01:42] LABS: Basophils # (A) 0.1 k/uL (0-0.2); Basophils % (A) 1 %; Eosinophils # (A) 0.2 k/uL (0-0.7); Eosinophils % (A) 2 %; HGB 15.7 gm/dL (13.0-17.5); Lymphocytes % (A) 25 %; MCH 34.1 pg (25.0-35.0); MCHC 33.3 g/dL (31.0-37.0); MCV 102.3 fL (80.0-100.0); Macrocytosis Slight; Mean Platelet Volume 7.9; Monocytes # (A) 0.4 k/uL (0-1.0); Monocytes % (A) 5 %; Neutrophils # (A) 5.2 k/uL (1.3-7.7); Neutrophils % (A) 66 %; Platelet Count 173 k/uL (150-450); RDW 14.4 % (11.5-15.5); WBC 7.8 k/uL (3.8-10.6)
[2018-12-11 01:52] LABS: INR 0.9 (<1.2); Partial Thromboplastin Time 23.7 sec (22.0-30.0); Prothrombin Time 9.7 sec (9.0-12.0)
[2018-12-11 01:56] LABS: ALT 23 U/L (21-72); AST 27 U/L (17-59); African American GFR (CKD) >90 (>60 ml/min/1.73 sqM); Albumin 4.5 g/dL (3.5-5.0); Alkaline Phosphatase 75 U/L (38-126); Anion Gap 9 mmol/L; Blood Urea Nitrogen 11 mg/dL (9-20); Calcium 9.3 mg/dL (8.4-10.2); Carbon Dioxide 23 mmol/L (22-30); Chloride 109 mmol/L (98-107); Glucose 94 mg/dL (74-99); Potassium 4.4 mmol/L (3.5-5.1); Sodium 141 mmol/L (137-145); Total Bilirubin 0.3 mg/dL (0.2-1.3); Total Protein 7.4 g/dL (6.3-8.2)
[2018-12-11 02:01] LABS: Alcohol 107 mg/dL
--- NOTE | 2018-12-11 02:02 | XR ---
EXAM: XR Pelvis, 1 or 2 Views CLINICAL HISTORY: Trauma TECHNIQUE: Frontal view of the pelvis. COMPARISON: No relevant prior studies available. FINDINGS: Bones/joints: Unremarkable. No acute fracture. No dislocation. Soft tissues: Unremarkable. IMPRESSION: Normal pelvis x-ray.
--- NOTE | 2018-12-11 02:21 | CT ---
EXAM: CT Head Without Intravenous Contrast CLINICAL HISTORY: Trauma TECHNIQUE: Axial computed tomography images of the head/brain without intravenous contrast. CTDI is 0.085, 0.085, 45.2, 9.3 mGy and DLP is 1274 mGy-cm. This CT exam was performed using one or more of the following dose reduction techniques: automated exposure control, adjustment of the mA and/or kV according to patient size, and/or use of iterative reconstruction technique. COMPARISON: No relevant prior studies available. FINDINGS: Brain: No acute infarct, hemorrhage, mass or edema. No significant white matter disease. Ventricles: Unremarkable. No ventriculomegaly. Bones/joints: Unremarkable. No acute fracture. Soft tissues: Unremarkable. Sinuses: Mild mucosal thickening in the paranasal sinuses. Mastoid air cells: Unremarkable as visualized. No mastoid effusion. IMPRESSION: No acute findings. EXAM: CT Cervical Spine Without Intravenous Contrast CLINICAL HISTORY: Trauma TECHNIQUE: Axial computed tomography images of the cervical spine without intravenous contrast. CTDI is 0.085, 0.085, 45.2, 9.3 mGy and DLP is 1274 mGy-cm. This CT exam was performed using one or more of the following dose reduction techniques: automated exposure control, adjustment of the mA and/or kV according to patient size, and/or use of iterative reconstruction technique. COMPARISON: No relevant prior studies available. FINDINGS: Vertebrae: No acute fracture or traumatic malalignment. Reversal of the normal cervical lordosis, likely positional. Discs/spinal canal/neural foramina: Multilevel degenerative changes. No spinal canal stenosis. Soft tissues: Unremarkable. Lung apices: Centrilobular emphysema seen within the visualized lungs. IMPRESSION: No acute findings.
--- NOTE | 2018-12-11 02:31 | XR ---
EXAM: XR Chest, 1 View CLINICAL HISTORY: Trauma TECHNIQUE: Frontal view of the chest. COMPARISON: Chest x-ray dated 11/07/2018 FINDINGS: Lungs: Unremarkable. No consolidation. Pleural space: Unremarkable. No pneumothorax. Heart: Unremarkable. No cardiomegaly. Mediastinum: Unremarkable. Bones/joints: Unremarkable. IMPRESSION: Normal chest x-ray.
[2018-12-11] MEDS ORDERED: ACETAMINOPHEN TAB 325 MG TAB PO STA (02:38)
[2018-12-11 02:39] LABS: Appearance,Urine Clear (Clear); Bilirubin,Urine Negative (Negative); Blood,Urine Negative (Negative); Color,Urine Light Yellow; Glucose,Urine (UA) Negative (Negative); Ketones,Urine Negative (Negative); Leukocyte Esterase,Urine Negative (Negative); Nitrite,Urine Negative (Negative); Protein,Urine Negative (Negative); Urobilinogen,Urine <2.0 mg/dL (<2.0)
[2018-12-11 02:53] LABS: Amphetamine Screen,Urine Not Detected (NotDetected); Barbiturate Screen,Urine Not Detected (NotDetected); Benzodiazepines Screen,Urine Not Detected (NotDetected); Cocaine Screen,Urine Not Detected (NotDetected); Methadone Screen, Urine Not Detected (NotDetected); Opiate Screen,Urine Not Detected (NotDetected); Oxycodone Screen, Urine Not Detected (NotDetected); Phencyclidine Screen,Urine Not Detected (NotDetected); Tricyclic Antidepressant,Urine Not Detected (NotDetected); Urn Cannabinoid Scrn Detected (NotDetected)
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
[2018-12-11] MEDS ORDERED: TOPICAL SKIN ADHESIVE 1 EACH AMP TOPICAL ONE (04:16)
[2018-12-11 05:45] VITALS: BP 124/90; PULSE 58
--- NOTE | 2018-12-12 06:04 | CDI ---
Documentation Clarification OP Dear Xiao LIMA, DO Please provide scalp laceration repair length. Thank you, Mahad Douglass Cafeteria Table Attendant If you have any questions, please contact Judge at [phone] [facility]
== END 2018-12-11 05:48 | disposition home or self-care (01) ==
LOC: EC 00:55
DX: S01.01XA Laceration without foreign body of scalp, initial encounter (principal); J45.909 Unspecified asthma, uncomplicated; M79.7 Fibromyalgia; F32.9 Major depressive disorder, single episode, unspecified; F17.200 Nicotine dependence, unspecified, uncomplicated; Z95.5 Presence of coronary angioplasty implant and graft; Z79.51 Long term (current) use of inhaled steroids; Z79.899 Other long term (current) drug therapy; Z53.29 Procedure and treatment not carried out because of patient's decision for other reasons; Y04.8XXA Assault by other bodily force, initial encounter; Y92.89 Other specified places as the place of occurrence of the external cause
CPT/HCPCS: 99284; 12002; 96360; 36415; 86900; 86901; 80053; 85025; 85610; 85730; 86850; 81003; 80306; 72170; 71045; 72125; 70450; G0480; 80320

== ENCOUNTER 2019-03-10 16:32 | Emergency (ER) | payer OTHER ==
[2019-03-10 16:38] VITALS: TEMP 98.2
[2019-03-10 17:11] LABS: Basophils # (A) 0.2 k/uL (0-0.2); Basophils % (A) 2 %; Eosinophils # (A) 0.2 k/uL (0-0.7); Eosinophils % (A) 2 %; HCT 44.9 % (39.0-53.0); Lymphocytes # (A) 1.7 k/uL (1.0-4.8); Lymphocytes % (A) 23 %; MCH 33.2 pg (25.0-35.0); MCHC 33.4 g/dL (31.0-37.0); MCV 99.4 fL (80.0-100.0); Mean Platelet Volume 7.7; Monocytes # (A) 0.3 k/uL (0-1.0); Monocytes % (A) 4 %; Neutrophils # (A) 4.9 k/uL (1.3-7.7); Neutrophils % (A) 67 %; Platelet Count 179 k/uL (150-450); RBC 4.51 m/uL (4.30-5.90); RDW 12.3 % (11.5-15.5); WBC 7.3 k/uL (3.8-10.6)
[2019-03-10 17:23] LABS: INR 0.9 (<1.2); Partial Thromboplastin Time 23.8 sec (22.0-30.0)
[2019-03-10 17:25] LABS: Chloride 105 mmol/L (98-107)
[2019-03-10 17:27] LABS: ALT 23 U/L (21-72); AST 22 U/L (17-59); African American GFR (CKD) >90 (>60 ml/min/1.73 sqM); Albumin 4.4 g/dL (3.5-5.0); Alkaline Phosphatase 66 U/L (38-126); Anion Gap 6 mmol/L; Blood Urea Nitrogen 14 mg/dL (9-20); Calcium 9.7 mg/dL (8.4-10.2); Carbon Dioxide 28 mmol/L (22-30); Glucose 113 mg/dL (74-99); Magnesium 2.1 mg/dL (1.6-2.3); Non-African American GFR(CKD) 82 (>60 ml/min/1.73 sqM); Potassium 3.6 mmol/L (3.5-5.1); Sodium 139 mmol/L (137-145); Total Bilirubin 0.6 mg/dL (0.2-1.3); Total Protein 6.9 g/dL (6.3-8.2)
--- NOTE | 2019-03-10 17:46 | XR ---
EXAMINATION TYPE: XR chest 2V DATE OF EXAM: 03/10/2019 COMPARISON: 12/11/2018 HISTORY: Chest pain TECHNIQUE: Frontal and lateral views of the chest are obtained. FINDINGS: Heart and mediastinum are normal. Lungs are clear. Diaphragm is normal. Bony thorax appear s normal. IMPRESSION: Normal chest. No change.
--- NOTE | 2019-03-10 18:08 | ED ---
General Adult HPI - General Chief complaint: Chest Pain Stated complaint: chest & neck pain Time Seen by Provider: 03/10/19 16:46 Source: patient, RN notes reviewed, old records reviewed Mode of arrival: ambulatory Limitations: no limitations - History of Present Illness Initial comments: 53-year-old male presenting for evaluation of left anterior chest pain. Pain is radiating into the left arm and left neck. His been present for approximately 2 days. He reports some associated mild dyspnea and nausea no significant vomiting or diaphoresis. Patient denies significant abdominal pain. Denies lower extremity pain or swelling. He states that he has had a mild cough but mostly unchanged from baseline. He has a known history of CAD and is currently on Plavix he had a recent stent placed in November of this year. - Related Data Home Medications Medication Instructions Recorded Confirmed Pregabalin [Lyrica] 150 mg PO TID 09/28/15 12/01/18 traZODone HCL [Desyrel] 100 mg PO HS 09/28/15 12/01/18 Albuterol Inhaler [Ventolin Hfa 2 puff INHALATION RT-Q6H PRN 11/13/16 12/01/18 Inhaler] DULoxetine HCL [Cymbalta] 60 mg PO HS 11/13/16 12/01/18 Umeclidinium [place] [Incruse 62.5 mcg INHALATION RT-DAILY 11/13/16 12/01/18 Ellipta] Budesonide/Formoterol Fumarate 2 puff INHALATION BID 10/14/17 12/01/18 [Symbicort 160-4.5 Mcg Inhaler] Nitroglycerin Sl Tabs [Nitrostat] 0.4 mg SUBLINGUAL Q5M PRN 10/14/17 12/01/18 Previous Rx's Medication Instructions Recorded Aspirin 81 mg PO DAILY #0 12/02/18 Atorvastatin [Lipitor] 80 mg PO HS #90 tab 12/02/18 Clopidogrel Bisulfate [Plavix] 75 mg PO DAILY #90 tab 12/02/18 Allergies Allergy/AdvReac Type Severity Reaction Status Date / Time No Known Allergies Allergy Verified 03/10/19 16:37 Review of Systems ROS Statement: Those systems with pertinent positive or pertinent negative responses have been documented in the HPI. ROS Other: All systems not noted in ROS Statement are negative. Past Medical History Past Medical History: Asthma, Fibromyalgia, Hypertension Additional Past Medical History / Comment(s): ?unsure of [place] Last Myocardial Infarction Date:: unknown History of Any Multi-Drug Resistant Organisms: None Reported Past Surgical History: Heart Catheterization With Stent Additional Past Surgical History / Comment(s): Neck tumor removed Past Anesthesia/Blood Transfusion Reactions: No Reported Reaction Date of Last Stent Placement:: 12/01/2018 Past Psychological History: Depression Smoking Status: Current every day smoker Past Alcohol Use History: Occasional Past Drug Use History: Marijuana - Past Family History Sister(s) Family Medical History: Cancer General Exam Limitations: no limitations General appearance: alert, in no apparent distress Head exam: Present: atraumatic, normocephalic Eye exam: Present: normal appearance, PERRL ENT exam: Present: normal exam Neck exam: Present: normal inspection. Absent: tenderness, meningismus Respiratory exam: Present: wheezes (Scattered wheezing, good air entry, no respiratory distress). Absent: respiratory distress Cardiovascular Exam: Present: regular rate, normal rhythm GI/Abdominal exam: Present: soft. Absent: distended, tenderness, guarding, rebound, rigid Extremities exam: Present: normal inspection, full ROM, normal capillary refill. Absent: pedal edema Neurological exam: Present: alert, oriented X3, CN II-XII intact. Absent: motor sensory deficit (5 out of 5 strength in all extremities, normal [id number], no ataxia) Psychiatric exam: Present: normal affect, normal mood Skin exam: Present: warm, dry, intact. Absent: cyanosis, diaphoretic Course Vital Signs 03/10/19 03/10/19 03/10/19 16:36 16:59 17:00 Temperature 98.2 F Pulse Rate 57 L 55 L 56 L Pulse Rate [ Concession Manager ] Respiratory 20 18 18 Rate Blood Pressure 131/82 O2 Sat by Pulse 100 100 99 Oximetry 03/10/19 03/10/19 17:05 18:00 Temperature Pulse Rate 54 L Pulse Rate [ 60 Concession Manager ] Respiratory 18 Rate Blood Pressure 136/83 O2 Sat by Pulse 99 Oximetry EKG Findings - EKG Comments: EKG Findings:: EKG: Sinus bradycardia, rate 57, ID interval 176, QRS duration 100, QTC 426, no ST segment elevation T waves are upright Medical Decision Making - Medical Decision Making 53-year-old male presenting for evaluation of left-sided chest pain. Pain has both typical and atypical features. Been present for 2 days. EKG shows sinus bradycardia with no ST segment elevation. Chest x-ray negative for acute cardiopulmonary disease. Patient has normal CBC, normal CMP, negative initial troponin. I would prefer this patient stay for chest pain observation, telemetry, cardiology consultation. Patient declines he wishes to be discharged. He would prefer to follow up as an outpatient. His his is at bedside and both are requesting discharge. He will be discharged home with close outpatient follow- up. He will return with any worsening or changing symptoms. - Lab Data Result diagrams: 03/10/19 16:55 03/10/19 16:55 Lab Results 03/10/19 03/10/19 03/10/19 Range/Units 16:55 16:55 16:55 WBC 7.3 (3.8-10.6) k/uL RBC 4.51 (4.30-5.90) m/uL Hgb 15.0 (13.0-17.5) gm/dL Hct 44.9 (39.0-53.0) % MCV 99.4 (80.0-100.0) fL MCH 33.2 (25.0-35.0) pg MCHC 33.4 (31.0-37.0) g/dL RDW 12.3 (11.5-15.5) % Plt Count 179 (150-450) k/uL Neutrophils % 67 % Lymphocytes % 23 % Monocytes % 4 % Eosinophils % 2 % Basophils % 2 % Neutrophils # 4.9 (1.3-7.7) k/uL Lymphocytes # 1.7 (1.0-4.8) k/uL Monocytes # 0.3 (0-1.0) k/uL Eosinophils # 0.2 (0-0.7) k/uL Basophils # 0.2 (0-0.2) k/uL PT (9.0-12.0) sec INR (<1.2) APTT (22.0-30.0) sec Sodium 139 (137-145) mmol/L Potassium 3.6 (3.5-5.1) mmol/L Chloride 105 (98-107) mmol/L Carbon Dioxide 28 (22-30) mmol/L Anion Gap 6 mmol/L BUN 14 (9-20) mg/dL Creatinine 1.04 (0.66-1.25) mg/dL Est GFR (CKD-EPI)AfAm >90 (>60 ml/min/1.73 sqM) Est GFR (CKD-EPI)NonAf 82 (>60 ml/min/1.73 sqM) Glucose 113 H (74-99) mg/dL Calcium 9.7 (8.4-10.2) mg/dL Magnesium 2.1 (1.6-2.3) mg/dL Total Bilirubin 0.6 (0.2-1.3) mg/dL AST 22 (17-59) U/L ALT 23 (21-72) U/L Alkaline Phosphatase 66 (38-126) U/L Troponin I (0.000-0.034) ng/mL NT-Pro-B Natriuret Pep 78 pg/mL Total Protein 6.9 (6.3-8.2) g/dL Albumin 4.4 (3.5-5.0) g/dL Lipase 154 (23-300) U/L 03/10/19 03/10/19 Range/Units 16:55 16:55 WBC (3.8-10.6) k/uL RBC (4.30-5.90) m/uL Hgb (13.0-17.5) gm/dL Hct (39.0-53.0) % MCV (80.0-100.0) fL MCH (25.0-35.0) pg MCHC (31.0-37.0) g/dL RDW (11.5-15.5) % Plt Count (150-450) k/uL Neutrophils % % Lymphocytes % % Monocytes % % Eosinophils % % Basophils % % Neutrophils # (1.3-7.7) k/uL Lymphocytes # (1.0-4.8) k/uL Monocytes # (0-1.0) k/uL Eosinophils # (0-0.7) k/uL Basophils # (0-0.2) k/uL PT 10.0 (9.0-12.0) sec INR 0.9 (<1.2) APTT 23.8 (22.0-30.0) sec Sodium (137-145) mmol/L Potassium (3.5-5.1) mmol/L Chloride (98-107) mmol/L Carbon Dioxide (22-30) mmol/L Anion Gap mmol/L BUN (9-20) mg/dL Creatinine (0.66-1.25) mg/dL Est GFR (CKD-EPI)AfAm (>60 ml/min/1.73 sqM) Est GFR (CKD-EPI)NonAf (>60 ml/min/1.73 sqM) Glucose (74-99) mg/dL Calcium (8.4-10.2) mg/dL Magnesium (1.6-2.3) mg/dL Total Bilirubin (0.2-1.3) mg/dL AST (17-59) U/L ALT (21-72) U/L Alkaline Phosphatase (38-126) U/L Troponin I <0.012 (0.000-0.034) ng/mL NT-Pro-B Natriuret Pep pg/mL Total Protein (6.3-8.2) g/dL Albumin (3.5-5.0) g/dL Lipase (23-300) U/L Disposition Clinical Impression: Chest pain Disposition: HOME SELF-CARE Condition: Fair Instructions (If sedation given, give patient instructions): Chest Pain (ED) Is patient prescribed a controlled substance at d/c from ED?: No Referrals: Joao Lopez DO [Primary Care Provider] - 1-2 days Time of Disposition: 18:16
[2019-03-10 18:14] VITALS: BP 136/83; PULSE 54; RESP 18
== END 2019-03-10 18:28 | disposition home or self-care (01) ==
LOC: EC 16:32
DX: R07.89 Other chest pain (principal); R00.1 Bradycardia, unspecified; R11.0 Nausea; I25.10 Atherosclerotic heart disease of native coronary artery without angina pectoris; I10 Essential (primary) hypertension; M79.7 Fibromyalgia; J45.909 Unspecified asthma, uncomplicated; F32.9 Major depressive disorder, single episode, unspecified; F17.200 Nicotine dependence, unspecified, uncomplicated; Z79.02 Long term (current) use of antithrombotics/antiplatelets; Z79.51 Long term (current) use of inhaled steroids; Z79.899 Other long term (current) drug therapy; Z95.5 Presence of coronary angioplasty implant and graft
CPT/HCPCS: 36415; 71046; 80053; 83690; 83735; 83880; 84484; 85025; 85610; 85730; 93005; 99285

== ENCOUNTER 2020-03-07 16:19 | Emergency (ER) | payer OTHER ==
[2020-03-07 16:25] VITALS: BP 105/75; PULSE 78; RESP 18; TEMP 98
[2020-03-07] MEDS ORDERED: IBUPROFEN 600 MG TAB PO STA (16:47)
[2020-03-07] MEDS ORDERED: LIDOCAINE 1% INJ 10MG/ML (20 ML MDV) SQ ONE (17:05)
--- NOTE | 2020-03-07 17:07 | ED ---
General Adult HPI - General Chief complaint: Extremity Injury, Upper Stated complaint: Hand Injury Time Seen by Provider: 03/07/20 16:36 Source: patient, RN notes reviewed Mode of arrival: ambulatory Limitations: no limitations - History of Present Illness Initial comments: 54-year-old male with a past medical history fibromyalgia presents to the emerge ncy room for a chief complaint of right finger pinky pain. Patient reports that he was reaching over a dog gate when he actually got his finger stuck in the gate and felt a sudden pain. Patient states his fingers bent strangely and he is unable to move it because of the pain. States it is very painful. Denies any other injuries. Patient has no other complaints at this time including shortness of breath, chest pain, abdominal pain, nausea or vomiting, headache, or visual changes. - Related Data Allergies Allergy/AdvReac Type Severity Reaction Status Date / Time No Known Allergies Allergy Verified 03/07/20 16:22 Review of Systems ROS Statement: Those systems with pertinent positive or pertinent negative responses have been documented in the HPI. ROS Other: All systems not noted in ROS Statement are negative. Past Medical History Additional Past Medical History / Comment(s): fibromyalgia History of Any Multi-Drug Resistant Organisms: None Reported Past Surgical History: Heart Catheterization With Stent Additional Past Surgical History / Comment(s): tumor removal from neck Past Psychological History: Depression Smoking Status: Current every day smoker Past Alcohol Use History: Occasional Past Drug Use History: None Reported General Exam Limitations: no limitations General appearance: alert, in no apparent distress Head exam: Present: atraumatic, normocephalic, normal inspection Eye exam: Present: normal appearance, PERRL, EOMI. Absent: scleral icterus, conjunctival injection, periorbital swelling ENT exam: Present: normal exam, mucous membranes moist Neck exam: Present: normal inspection, full ROM. Absent: tenderness, meningismus, lymphadenopathy Respiratory exam: Present: normal lung sounds bilaterally. Absent: respiratory distress, wheezes, rales, rhonchi, stridor Cardiovascular Exam: Present: regular rate, normal rhythm, normal heart sounds. Absent: systolic murmur, diastolic murmur, rubs, gallop, clicks GI/Abdominal exam: Present: soft, normal bowel sounds. Absent: distended, tenderness, guarding, rebound, rigid Extremities exam: Present: tenderness (Tenderness noted to the proximal phalangeal area fifth digit.), normal capillary refill (Capillary refill less than 2 seconds, radial pulse 2+ right upper extremity), other (Sensation intact RUE). Absent: normal inspection (Medial deviation to the right fifth digit.), full ROM (Unable to move right second digit.), pedal edema, joint swelling, calf tenderness Course Vital Signs 03/07/20 16:22 Temperature 98 F Pulse Rate 78 Respiratory 18 Rate Blood Pressure 105/75 O2 Sat by Pulse 97 Oximetry Procedures - Orthopedic Fracture Reduction Fracture #1 Consent Obtained: verbal consent Side: right Fracture Reduction Location: finger Analgesia: digital block Technique: direct manipulation Post-Reduction Neuro Exam: intact Post-Reduction Vascular Exam: intact Splint Applied: Yes Patient Tolerated Procedure: well, no complications Medical Decision Making - Medical Decision Making X-ray of the right fifth digit shows an acute nondisplaced fracture of the proximal phalanx of the little finger right hand. Clinically however physical exam there was mild displacement and this was reduced with traction countertraction. Splint was applied. Patient will follow-up with orthopedics. He'll return here for any worsening symptoms. Disposition Clinical Impression: Finger fracture, right Disposition: HOME SELF-CARE Condition: Good Instructions (If sedation given, give patient instructions): Finger Fracture (ED) Additional Instructions: Please take Tylenol 3 for pain. Please rest ice and elevate the finger. Keep splint in place. Follow-up with orthopedics. Return for any worsening symptoms. Is patient prescribed a controlled substance at d/c from ED?: No Referrals: Joao Lopez DO [Primary Care Provider] - 1-2 days Yaniv Carreno DO [Doctor of Osteopathic Medicine] - 1-2 days Time of Disposition: 17:38
--- NOTE | 2020-03-07 17:13 | XR ---
EXAMINATION TYPE: XR finger RT DATE OF EXAM: 03/07/2020 COMPARISON: NONE HISTORY: Pain. Injury. TECHNIQUE: 3 views FINDINGS: There is a nondisplaced fracture of the mid and distal shaft of the proximal phalanx little finger right hand. There is no dislocation. There is spurring at the IP joints of the little finger. There is old healed fracture fifth metacarpal. IMPRESSION: Acute nondisplaced fracture of the proximal phalanx of the little finger right hand.
[2020-03-07] MEDS ORDERED: ACET/COD 300 MG/30 MG STARTER PACK 6 TAB BTL PO STA (17:38)
== END 2020-03-07 17:47 | disposition home or self-care (01) ==
LOC: MERGE 16:19 → EC 16:19
DX: S62.616A Displaced fracture of proximal phalanx of right little finger, initial encounter for closed fracture (principal); F17.200 Nicotine dependence, unspecified, uncomplicated; Z95.5 Presence of coronary angioplasty implant and graft; W23.0XXA Caught, crushed, jammed, or pinched between moving objects, initial encounter; Y92.89 Other specified places as the place of occurrence of the external cause
CPT/HCPCS: 73140; 99283; 26725; J2001

== ENCOUNTER 2021-04-14 21:56 | Inpatient (IN) | payer OTHER ==
--- NOTE | 2021-04-14 22:28 | ED ---
Dizziness HPI - General Chief Complaint: Syncope Stated Complaint: syncope Time Seen by Provider: 04/14/21 22:03 Source: patient, EMS Mode of arrival: EMS Limitations: no limitations - History of Present Illness Initial Comments: This patient is a 55-year-old man who presents with complaint of feeling lightheaded when he stands, diaphoresis, nausea and vomiting. Patient also notes that he has been having dark appearing stools. All the symptoms have been going on approximately 3 days. MD Complaint: lightheadedness, near syncope Onset/Timin -: days(s) Timing: sudden onset Description: lightheadedness, nausea, near-syncope History of Same: No History of Trauma: No Improves With: rest Worsens With: exertion Associated Symptoms: diaphoresis - Related Data Home Medications Medication Instructions Recorded Confirmed Pregabalin [Lyrica] 150 mg PO TID 09/28/15 12/01/18 traZODone HCL [Desyrel] 100 mg PO HS 09/28/15 12/01/18 Albuterol Inhaler (Mhu) [Ventolin 2 puff INHALATION RT-Q6H PRN 11/13/16 12/01/18 Hfa Inhaler (Mhu)] DULoxetine HCL [Cymbalta] 60 mg PO HS 11/13/16 12/01/18 Umeclidinium [place] [Incruse 62.5 mcg INHALATION RT-DAILY 11/13/16 12/01/18 Ellipta] Budesonide/Formoterol Fumarate 2 puff INHALATION BID 10/14/17 12/01/18 [Symbicort 160-4.5 Mcg Inhaler] Nitroglycerin Sl Tabs [Nitrostat] 0.4 mg SUBLINGUAL Q5M PRN 10/14/17 12/01/18 Previous Rx's Medication Instructions Recorded Aspirin 81 mg PO DAILY #0 12/02/18 Atorvastatin [Lipitor] 80 mg PO HS #90 tab 12/02/18 Clopidogrel Bisulfate [Plavix] 75 mg PO DAILY #90 tab 12/02/18 Allergies Allergy/AdvReac Type Severity Reaction Status Date / Time No Known Allergies Allergy Verified 03/08/20 08:43 Review of Systems ROS Statement: Those systems with pertinent positive or pertinent negative responses have been documented in the HPI. ROS Other: All systems not noted in ROS Statement are negative. Constitutional: Denies: fever Respiratory: Denies: cough, dyspnea Cardiovascular: Reports: dyspnea on exertion. Denies: chest pain, palpitations, orthopnea, edema, syncope Gastrointestinal: Reports: nausea, vomiting, melena. Denies: abdominal pain, diarrhea, constipation, hematemesis, hematochezia Genitourinary: Denies: dysuria, hematuria Musculoskeletal: Denies: back pain Skin: Denies: rash Neurological: Denies: headache, weakness, numbness Hematological/Lymphatic: Denies: easy bleeding 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 Past Anesthesia/Blood Transfusion Reactions: No Reported Reaction Date of Last Stent Placement:: 12/01/2018 Past Psychological History: Depression Smoking Status: Current every day smoker Past Alcohol Use History: Daily Past Drug Use History: Marijuana, None Reported - Past Family History Sister(s) Family Medical History: Cancer General Exam Limitations: no limitations General appearance: alert, in no apparent distress Head exam: Present: atraumatic, normocephalic Eye exam: Present: normal appearance. Absent: scleral icterus, conjunctival injection ENT exam: Present: mucous membranes dry Neck exam: Present: normal inspection Respiratory exam: Present: normal lung sounds bilaterally. Absent: respiratory distress, wheezes, rales, rhonchi, stridor Cardiovascular Exam: Present: regular rate, normal rhythm, normal heart sounds. Absent: systolic murmur, diastolic murmur, rubs, gallop GI/Abdominal exam: Present: soft. Absent: distended, tenderness, guarding, rebound, rigid, organomegaly, mass, pulsatile mass, hernia Extremities exam: Present: normal inspection, normal capillary refill. Absent: pedal edema, calf tenderness Back exam: Present: normal inspection. Absent: CVA tenderness (R), CVA tenderness (L) Neurological exam: Present: alert Skin exam: Present: warm, dry, intact, pallor. Absent: rash Course Vital Signs 04/14/21 04/15/21 04/15/21 21:57 01:39 01:40 Temperature 98.2 F 98.4 F 98.4 F Pulse Rate 105 H 76 76 Respiratory 20 17 17 Rate Blood Pressure 146/133 102/59 102/59 O2 Sat by Pulse 90 L 100 100 Oximetry 04/15/21 04/15/21 04/15/21 01:55 02:05 02:25 Temperature 97.5 F L 98.1 F 98.0 F Pulse Rate 98 91 77 Respiratory 16 18 17 Rate Blood Pressure 96/51 94/53 104/68 O2 Sat by Pulse 100 100 100 Oximetry 04/15/21 03:38 Temperature 98.1 F Pulse Rate 87 Respiratory 16 Rate Blood Pressure 94/52 O2 Sat by Pulse 99 Oximetry EKG Findings - EKG Results: EKG: interpreted by REANNA CONTRERAS, sinus rhythm (Rate 88 bpm), normal axis, normal QRS, normal ST/T, no acute changes Medical Decision Making - Lab Data Result diagrams: 04/14/21 22:18 04/14/21 22:18 Lab Results 04/14/21 04/14/21 04/14/21 Range/Units 22:18 22:18 22:18 WBC 11.2 H (3.8-10.6) k/uL RBC 1.56 L (4.30-5.90) m/uL Hgb 5.4 L* (13.0-17.5) gm/dL Hct 15.8 L* (39.0-53.0) % MCV 100.8 H (80.0-100.0) fL MCH 34.4 (25.0-35.0) pg MCHC 34.2 (31.0-37.0) g/dL RDW 13.4 (11.5-15.5) % Plt Count 170 (150-450) k/uL MPV 9.2 Neutrophils % 67 % Lymphocytes % 25 % Monocytes % 5 % Eosinophils % 1 % Basophils % 0 % Neutrophils # 7.5 (1.3-7.7) k/uL Lymphocytes # 2.8 (1.0-4.8) k/uL Monocytes # 0.6 (0-1.0) k/uL Eosinophils # 0.1 (0-0.7) k/uL Basophils # 0.0 (0-0.2) k/uL Macrocytosis Slight PT 10.7 (9.0-12.0) sec INR 1.0 (<1.2) APTT 20.0 L (22.0-30.0) sec Sodium 133 L (137-145) mmol/L Potassium 3.9 (3.5-5.1) mmol/L Chloride 110 H (98-107) mmol/L Carbon Dioxide 18 L (22-30) mmol/L Anion Gap 5 mmol/L BUN 35 H (9-20) mg/dL Creatinine 1.02 (0.66-1.25) mg/dL Est GFR (CKD-EPI)AfAm >90 (>60 ml/min/1.73 sqM) Est GFR (CKD-EPI)NonAf 83 (>60 ml/min/1.73 sqM) Glucose 123 H (74-99) mg/dL Calcium 7.3 L (8.4-10.2) mg/dL Total Bilirubin <0.1 L (0.2-1.3) mg/dL AST 15 L (17-59) U/L ALT 10 (4-49) U/L Alkaline Phosphatase 39 (38-126) U/L Troponin I (0.000-0.034) ng/mL Total Protein 4.5 L (6.3-8.2) g/dL Albumin 2.5 L (3.5-5.0) g/dL Serum Alcohol <10 mg/dL Coronavirus (PCR) (Not Detectd) Blood Type Blood Type Recheck Bld Type Recheck Status Antibody Screen Crossmatch Spec Expiration Date 04/14/21 04/14/21 04/14/21 Range/Units 22:18 22:40 22:46 WBC (3.8-10.6) k/uL RBC (4.30-5.90) m/uL Hgb (13.0-17.5) gm/dL Hct (39.0-53.0) % MCV (80.0-100.0) fL MCH (25.0-35.0) pg MCHC (31.0-37.0) g/dL RDW (11.5-15.5) % Plt Count (150-450) k/uL MPV Neutrophils % % Lymphocytes % % Monocytes % % Eosinophils % % Basophils % % Neutrophils # (1.3-7.7) k/uL Lymphocytes # (1.0-4.8) k/uL Monocytes # (0-1.0) k/uL Eosinophils # (0-0.7) k/uL Basophils # (0-0.2) k/uL Macrocytosis PT (9.0-12.0) sec INR (<1.2) APTT (22.0-30.0) sec Sodium (137-145) mmol/L Potassium (3.5-5.1) mmol/L Chloride (98-107) mmol/L Carbon Dioxide (22-30) mmol/L Anion Gap mmol/L BUN (9-20) mg/dL Creatinine (0.66-1.25) mg/dL Est GFR (CKD-EPI)AfAm (>60 ml/min/1.73 sqM) Est GFR (CKD-EPI)NonAf (>60 ml/min/1.73 sqM) Glucose (74-99) mg/dL Calcium (8.4-10.2) mg/dL Total Bilirubin (0.2-1.3) mg/dL AST (17-59) U/L ALT (4-49) U/L Alkaline Phosphatase (38-126) U/L Troponin I <0.012 (0.000-0.034) ng/mL Total Protein (6.3-8.2) g/dL Albumin (3.5-5.0) g/dL Serum Alcohol mg/dL Coronavirus (PCR) Not Detected (Not Detectd) Blood Type B Positive Blood Type Recheck B Pos Bld Type Recheck Status No Antibody Screen NEGATIVE Crossmatch See Detail Spec Expiration Date 04/17/20212345 Disposition Clinical Impression: GI bleeding, Anemia Disposition: ADMITTED IP TO THIS [facility] Condition: Serious Is patient prescribed a controlled substance at d/c from ED?: No
[2021-04-14 22:29] LABS: Basophils % (A) 0 %; Eosinophils # (A) 0.1 k/uL (0-0.7); Eosinophils % (A) 1 %; Lymphocytes # (A) 2.8 k/uL (1.0-4.8); Lymphocytes % (A) 25 %; MCH 34.4 pg (25.0-35.0); MCHC 34.2 g/dL (31.0-37.0); MCV 100.8 fL (80.0-100.0); Macrocytosis Slight; Mean Platelet Volume 9.2; Monocytes # (A) 0.6 k/uL (0-1.0); Monocytes % (A) 5 %; Neutrophils # (A) 7.5 k/uL (1.3-7.7); Neutrophils % (A) 67 %; Platelet Count 170 k/uL (150-450); RBC 1.56 m/uL (4.30-5.90); RDW 13.4 % (11.5-15.5); WBC 11.2 k/uL (3.8-10.6)
[2021-04-14 22:39] LABS: ALT 10 U/L (4-49); AST 15 U/L (17-59); African American GFR (CKD) >90 (>60 ml/min/1.73 sqM); Albumin 2.5 g/dL (3.5-5.0); Alcohol <10 mg/dL; Alkaline Phosphatase 39 U/L (38-126); Anion Gap 5 mmol/L; Blood Urea Nitrogen 35 mg/dL (9-20); Calcium 7.3 mg/dL (8.4-10.2); Carbon Dioxide 18 mmol/L (22-30); Chloride 110 mmol/L (98-107); Glucose 123 mg/dL (74-99); HCT 15.8 % (39.0-53.0); HGB 5.4 gm/dL (13.0-17.5); Non-African American GFR(CKD) 83 (>60 ml/min/1.73 sqM); Potassium 3.9 mmol/L (3.5-5.1); Sodium 133 mmol/L (137-145); Total Bilirubin <0.1 mg/dL (0.2-1.3); Total Protein 4.5 g/dL (6.3-8.2)
[2021-04-14 22:46] LABS: Prothrombin Time 10.7 sec (9.0-12.0)
--- NOTE | 2021-04-14 22:48 | XR ---
EXAMINATION TYPE: XR chest 2V DATE OF EXAM: 04/14/2021 COMPARISON: 03/10/2019 HISTORY: Syncope TECHNIQUE: FINDINGS: Heart and mediastinum are normal. Lungs are clear. Diaphragm is normal. Bony thorax is inta ct. IMPRESSION: Normal chest. No change.
[2021-04-15] MEDS ORDERED: ACETAMINOPHEN TAB 325 MG TAB PO PRN (01:13)
[2021-04-15] MEDS ORDERED: ONDANSETRON 4 MG/2 ML VIAL IVP PRN (01:13)
[2021-04-15] MEDS ORDERED: MAG HYDROX/AL HYDROX/SIMETH 30 ML CUP PO PRN (01:13)
[2021-04-15] MEDS ORDERED: NALOXONE 0.4 MG/ML 1 ML VIAL IV PRN (01:13)
[2021-04-15] MEDS ORDERED: LORazepam 2 MG/ML INJ IV PRN ×3 (01:42)
[2021-04-15] MEDS: SODIUM CHLORIDE 0.9% 1,000 ML IV SCH ×2 (02:31→20:42)
[2021-04-15] MEDS ORDERED: traZODone HCL 100 MG TAB PO STA (02:51)
[2021-04-15 04:44] LABS: Appearance,Urine Clear (Clear); Bilirubin,Urine Negative (Negative); Blood,Urine Negative (Negative); Color,Urine Yellow; Glucose,Urine (UA) Negative (Negative); Ketones,Urine Negative (Negative); Leukocyte Esterase,Urine Negative (Negative); Nitrite,Urine Negative (Negative); PH, Urine 5.5 (5.0-8.0); Protein,Urine Negative (Negative); Specific Gravity,Urine 1.023 (1.001-1.035); Urobilinogen,Urine <2.0 mg/dL (<2.0)
[2021-04-15 09:04] LABS: HCT 22.4 % (39.0-53.0); MCH 31.6 pg (25.0-35.0); MCHC 33.3 g/dL (31.0-37.0); Mean Platelet Volume 8.8; Platelet Count 131 k/uL (150-450); RBC 2.36 m/uL (4.30-5.90); RDW 15.4 % (11.5-15.5); WBC 9.2 k/uL (3.8-10.6)
[2021-04-15 09:39] LABS: HGB 7.5 gm/dL (13.0-17.5); MCV 94.9 fL (80.0-100.0)
[2021-04-15] MEDS: MULTIVITAMINS, THERA 1 EACH TAB PO SCH (10:20)
[2021-04-15] MEDS: PANTOPRAZOLE 40 MG/10 ML VIAL IV SCH (10:51)
[2021-04-15 15:17] LABS: Anisocytosis Slight; HCT 22.6 % (39.0-53.0); HGB 7.2 gm/dL (13.0-17.5); Hypochromasia Marked; MCH 33.4 pg (25.0-35.0); MCHC 31.8 g/dL (31.0-37.0); Macrocytosis Moderate; Mean Platelet Volume 9.4; Platelet Count 121 k/uL (150-450); RBC 2.16 m/uL (4.30-5.90); RDW 16.6 % (11.5-15.5); WBC 10.6 k/uL (3.8-10.6)
[2021-04-15] MEDS ORDERED: ALBUTEROL NEBULIZED 2.5 MG/3 ML INHALATION PRN (16:24)
[2021-04-15] MEDS ORDERED: NITROGLYCERIN SL TABS 0.4 MG TAB SUBLINGUAL PRN (16:24)
[2021-04-15] MEDS ORDERED: SYMBICORT 160-4.5 MCG INHALER INHALATION PRN (16:24)
[2021-04-15] MEDS ORDERED: TIOTROPIUM 2.5 MCG INHALER INHALATION PRN (16:24)
[2021-04-15] MEDS: PREGABALIN 75 MG CAP PO SCH ×2 (16:39→20:41)
[2021-04-15] MEDS: THIAMINE 100 MG TAB PO SCH (16:40)
--- NOTE | 2021-04-15 17:49 | HP ---
HISTORY AND PHYSICAL CHIEF COMPLAINT: Lightheadedness, syncope, and gastrointestinal bleed. HISTORY OF PRESENT ILLNESS: This 55-year-old gentleman with a past medical history of multiple medical problems including asthma, fibromyalgia, hypertension, being followed by Dr. Joao Lopez in the outpatient setting, complaining of syncope and weakness. The patient came to [facility]. Patient was found to have hemoglobin 5.5. Patient received 2 units of transfusion. Hemoglobin improved to 7.2 at this time. A surgical evaluation for possible endoscopy has been ordered at this time. There is no history of fever, rigors. No history of headache, loss of consciousness, seizures. PAST MEDICAL HISTORY: History of asthma, fibromyalgia, hypertension, and CAD/stent. MEDICATIONS: Home medications are: Spiriva, nitroglycerine, Symbicort, albuterol , Desyrel, Lyrica, Cymbalta, Plavix. Doses reviewed. ALLERGIES: None. FAMILY HISTORY: History of cancer in the family. SOCIAL HISTORY: History of smoking and daily alcohol abuse, two beers a day, DSC. REVIEW OF SYSTEMS: ENT: No diminished vision. No diminished hearing. Cardio system: No angina. RESPIRATORY: As mentioned earlier. GI as mentioned earlier. : As mentioned earlier. NERVOUS SYSTEM: No numbness, weakness. ALLERGY/IMMUNOLOGY: No history of asthma or hayfever. HEMATOLOGY/ONCOLOGY: No history of anemia. ENDOCRINE: No history of diabetes or hypothyroidism. CONSTITUTIONAL: As mentioned earlier. DERMATOLOGY negative. RHEUMATOLOGY negative. PSYCHIATRIC: As mentioned earlier. PHYSICAL EXAMINATION: Patient is alert, oriented x3. The pulse is 78, blood pressure 94/61, respiration 18, temperature 98.2. Pulse ox 100 percent on room air. HEENT: Conjunctivae normal. NECK: No JVD. CARDIOVASCULAR: S1, S2 muffled. RESPIRATORY: Breath sounds diminished in the bases. A few rhonchi. No crackles. ABDOMEN: Soft, nontender. No mass palpable. LEGS are no edema. No swelling. NERVOUS SYSTEM: Higher functions as mentioned earlier. Moves all four limbs. No focal deficits. LYMPHATICS: No lymph nodes palpable in the neck, axillae or groin. SKIN: No ulcer, no rashes and no bleeding. JOINTS: No active deforming arthropathy. LAB STUDIES: WBC 10.7, hemoglobin 7.2. Other labs are noted. ASSESSMENT: 1. Anemia, acute blood loss anemia. Rule out gastrointestinal blood loss anemia. 2. Rule out chronic liver disease. 3. Increased WBC. 4. Increased MCV. 5. History of ETOH. 6. Hyponatremia. 7. Elevated random glucose. 8. History of asthma. 9. History of fibromyalgia. 10.Hypertension. 11.History of CAD/stent. 12.History of depression. 13.History of nicotine dependence. 14.FULL CODE. RECOMMENDATIONS AND DISCUSSION: This 55-year-old gentleman who presented with multiple complex medical issues, we will monitor the patient closely, continue the current medications. We will monitor the H and H closely. Otherwise, surgical evaluation, possible endoscopes. Avoid antiplatelet agents. Guarded prognosis because of multiple complex medical issues. Further recommendations to follow. A copy of dictation is being forwarded to Dr. Khushbu Loepz who is the primary physician. JENNIFER / SANAM: [id number] /
[2021-04-15] MEDS: traZODone HCL 100 MG TAB PO SCH (20:41)
[2021-04-15] MEDS: DULoxetine HCL 60 MG CAPSULE.DR PO SCH (20:41)
[2021-04-15] MEDS ORDERED: traZODone HCL 100 MG TAB PO SCH (21:00)
[2021-04-15 22:10] LABS: Anisocytosis Slight; MCH 32.3 pg (25.0-35.0); MCHC 33.4 g/dL (31.0-37.0); Mean Platelet Volume 9.4; Platelet Count 119 k/uL (150-450); RBC 1.87 m/uL (4.30-5.90); RDW 16.2 % (11.5-15.5)
[2021-04-15 23:40] LABS: Anisocytosis Slight; MCH 32.8 pg (25.0-35.0); MCHC 34.5 g/dL (31.0-37.0); Mean Platelet Volume 9.4; Platelet Count 115 k/uL (150-450); RBC 1.73 m/uL (4.30-5.90); RDW 16.3 % (11.5-15.5); WBC 6.7 k/uL (3.8-10.6)
[2021-04-15 23:44] LABS: HCT 18.1 % (39.0-53.0)
[2021-04-15 23:46] LABS: MCV 96.6 fL (80.0-100.0)
[2021-04-16 00:06] LABS: HCT 16.4 % (39.0-53.0)
[2021-04-16 00:07] LABS: HGB 5.7 gm/dL (13.0-17.5)
[2021-04-16] MEDS: SODIUM CHLORIDE 0.9% 1,000 ML IV SCH ×3 (06:04→21:00)
[2021-04-16] MEDS: PREGABALIN 75 MG CAP PO SCH ×3 (07:16→21:00)
[2021-04-16] MEDS: PANTOPRAZOLE 40 MG/10 ML VIAL IV SCH (07:16)
[2021-04-16] MEDS: THIAMINE 100 MG TAB PO SCH ×2 (07:17→16:54)
[2021-04-16] MEDS: MULTIVITAMINS, THERA 1 EACH TAB PO SCH (07:17)
[2021-04-16] MEDS: DULoxetine HCL 60 MG CAPSULE.DR PO SCH ×2 (07:17→21:00)
[2021-04-16 07:42] LABS: Anisocytosis Slight; Basophils % (A) 0 %; Eosinophils # (A) 0.1 k/uL (0-0.7); Eosinophils % (A) 1 %; HCT 24.1 % (39.0-53.0); Lymphocytes # (A) 2.2 k/uL (1.0-4.8); Lymphocytes % (A) 28 %; MCHC 34.8 g/dL (31.0-37.0); MCV 91.9 fL (80.0-100.0); Monocytes # (A) 0.3 k/uL (0-1.0); Monocytes % (A) 4 %; Neutrophils # (A) 4.9 k/uL (1.3-7.7); Neutrophils % (A) 64 %; Platelet Count 109 k/uL (150-450); RBC 2.62 m/uL (4.30-5.90); WBC 7.6 k/uL (3.8-10.6)
[2021-04-16 07:49] LABS: HGB 8.4 gm/dL (13.0-17.5)
--- NOTE | 2021-04-16 08:22 | US ---
EXAMINATION TYPE: US liver DATE OF EXAM: 04/16/2021 COMPARISON: NONE CLINICAL HISTORY: cirrhosis liver. EXAM MEASUREMENTS: Liver Length: 15.0 cm Gallbladder Wall: 0.2 cm CBD: 0.6 cm Right Kidney: 10.2 x 4.8 x 4.5 cm Pancreas: Somewhat obscured by bowel gas, prominent duct at 4mm Liver: wnl Gallbladder: wnl Evidence for sonographic Peoples's sign: no CBD: wnl Right Kidney: Inferior pole obscured by overlying bowel gas IMPRESSION: 1. Typical findings for cirrhosis not evident on the current examination. 2. Visualized remaining abdomen ultrasound appears unremarkable
[2021-04-16 11:29] LABS: ALT 7 U/L (10-49); AST 11 U/L (14-35); African American GFR (CKD) 115.6 (60.0-200.0); Albumin 2.7 g/dL (3.8-4.9); Alkaline Phosphatase 34 U/L (41-126); BUN/Creat Ratio 17.38 Ratio (12.00-20.00); Blood Urea Nitrogen 14.2 mg/dL (9.0-27.0); Calcium 7.5 mg/dL (8.7-10.3); Carbon Dioxide 20.5 mmol/L (20.0-27.5); Chloride 109 mmol/L (96-109); Globulin 1.1 g/dL (1.6-3.3); Glucose 102 mg/dL (70-110); Non-African American GFR(CKD) 99.7 (60.0-200.0); Potassium 3.6 mmol/L (3.5-5.5); Sodium 137 mmol/L (135-145); Total Bilirubin <0.20 mg/dL (0.30-1.20); Total Protein 3.8 g/dL (6.2-8.2)
--- NOTE | 2021-04-16 12:11 | P.GSCN ---
History of Present Illness Consult date: 04/15/21 Reason for Consult: Anemia, GI bleed History of present illness: This a 55-year-old who was admitted through the emergency room with complaints of GI bleed. Patient denies any abdominal pain. 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 Past Anesthesia/Blood Transfusion Reactions: No Reported Reaction Date of Last Stent Placement:: 12/01/2018 Past Psychological History: Depression Smoking Status: Current every day smoker Past Alcohol Use History: Daily Past Drug Use History: Marijuana, None Reported - Past Family History Sister(s) Family Medical History: Cancer Medications and Allergies Home Medications Medication Instructions Recorded Confirmed Type Pregabalin [Lyrica] 150 mg PO TID 09/28/15 04/15/21 History traZODone HCL [Desyrel] 100 mg PO HS 09/28/15 04/15/21 History DULoxetine HCL [Cymbalta] 60 mg PO BID 11/13/16 04/15/21 History Budesonide/Formoterol Fumarate 2 puff INHALATION RT-BID PRN 10/14/17 04/15/21 History [Symbicort 160-4.5 Mcg Inhaler] Nitroglycerin Sl Tabs [Nitrostat] 0.4 mg SUBLINGUAL Q5M PRN 10/14/17 04/15/21 History Clopidogrel Bisulfate [Plavix] 75 mg PO DAILY #90 tab 12/02/18 04/15/21 Rx Albuterol Sulfate [Proair Hfa] 2 puff INHALATION RT-Q6H PRN 04/15/21 04/15/21 History Tiotropium 2.5 Mcg/Puff [Spiriva 2 puff INHALATION RT-DAILY PRN 04/15/21 04/15/21 History Respimat 2.5 Mcg] Allergies Allergy/AdvReac Type Severity Reaction Status Date / Time No Known Allergies Allergy Verified 04/15/21 08:20 Surgical - Exam Vital Signs Temp Pulse Resp BP Pulse Ox 98.2 F 105 H 20 146/133 90 L 04/14/21 21:57 04/14/21 21:57 04/14/21 21:57 04/14/21 21:57 04/14/21 21:57 - General well developed, well nourished, no distress - Eyes PERRL - ENT normal pinna - Neck no masses - Respiratory normal expansion - Abdomen Abdomen: soft, non tender Results - Labs 04/16/21 07:00 04/16/21 07:00 Abnormal Lab Results - Last 24 Hours (Table) 04/14/21 04/15/21 04/15/21 Range/Units 22:46 14:49 21:45 RBC 2.16 L 1.87 L (4.30-5.90) m/uL Hgb 7.2 L 6.0 L* (13.0-17.5) gm/dL Hct 22.6 L 18.1 L* (39.0-53.0) % MCV 105.0 H D (80.0-100.0) fL RDW 16.6 H 16.2 H (11.5-15.5) % Plt Count 121 L 119 L (150-450) k/uL Anion Gap (10.00-18.00) mmol/L Calcium (8.7-10.3) mg/dL Total Bilirubin (0.30-1.20) mg/dL AST (14-35) U/L ALT (10-49) U/L Alkaline Phosphatase (41-126) U/L Total Protein (6.2-8.2) g/dL Albumin (3.8-4.9) g/dL Globulin (1.6-3.3) g/dL Crossmatch See Detail 04/15/21 04/16/21 04/16/21 Range/Units 23:09 07:00 07:00 RBC 1.73 L 2.62 L (4.30-5.90) m/uL Hgb 5.7 L* 8.4 L D (13.0-17.5) gm/dL Hct 16.4 L* 24.1 L (39.0-53.0) % MCV (80.0-100.0) fL RDW 16.3 H 16.0 H (11.5-15.5) % Plt Count 115 L 109 L (150-450) k/uL Anion Gap 7.30 L (10.00-18.00) mmol/L Calcium 7.5 L (8.7-10.3) mg/dL Total Bilirubin <0.20 L (0.30-1.20) mg/dL AST 11 L (14-35) U/L ALT 7 L (10-49) U/L Alkaline Phosphatase 34 L (41-126) U/L Total Protein 3.8 L (6.2-8.2) g/dL Albumin 2.7 L (3.8-4.9) g/dL Globulin 1.1 L (1.6-3.3) g/dL Crossmatch Diabetes panel 04/16/21 Range/Units 07:00 Sodium 137 (135-145) mmol/L Potassium 3.6 (3.5-5.5) mmol/L Chloride 109 (96-109) mmol/L Carbon Dioxide 20.5 (20.0-27.5) mmol/L BUN 14.2 (9.0-27.0) mg/dL Creatinine 0.8 (0.6-1.5) mg/dL Glucose 102 (70-110) mg/dL Calcium 7.5 L (8.7-10.3) mg/dL AST 11 L (14-35) U/L ALT 7 L (10-49) U/L Alkaline Phosphatase 34 L (41-126) U/L Total Protein 3.8 L (6.2-8.2) g/dL Albumin 2.7 L (3.8-4.9) g/dL Calcium panel 04/16/21 Range/Units 07:00 Calcium 7.5 L (8.7-10.3) mg/dL Albumin 2.7 L (3.8-4.9) g/dL Pituitary panel 04/16/21 Range/Units 07:00 Sodium 137 (135-145) mmol/L Potassium 3.6 (3.5-5.5) mmol/L Chloride 109 (96-109) mmol/L Carbon Dioxide 20.5 (20.0-27.5) mmol/L BUN 14.2 (9.0-27.0) mg/dL Creatinine 0.8 (0.6-1.5) mg/dL Glucose 102 (70-110) mg/dL Calcium 7.5 L (8.7-10.3) mg/dL Adrenal panel 01/02/22 Range/Units 07:00 Sodium 137 (135-145) mmol/L Potassium 3.6 (3.5-5.5) mmol/L Chloride 109 (96-109) mmol/L Carbon Dioxide 20.5 (20.0-27.5) mmol/L BUN 14.2 (9.0-27.0) mg/dL Creatinine 0.8 (0.6-1.5) mg/dL Glucose 102 (70-110) mg/dL Calcium 7.5 L (8.7-10.3) mg/dL Total Bilirubin <0.20 L (0.30-1.20) mg/dL AST 11 L (14-35) U/L ALT 7 L (10-49) U/L Alkaline Phosphatase 34 L (41-126) U/L Total Protein 3.8 L (6.2-8.2) g/dL Albumin 2.7 L (3.8-4.9) g/dL Assessment and Plan Assessment: GI bleed. Patient will receive packed red cells. We will plan for upper and lower endoscopy when stable.
--- NOTE | 2021-04-16 12:12 | P.PN ---
Progress Note - Text Progress Note Date: 04/16/21 Patient remains stable. He denies any further rectal bleeding. On exam vital signs are stable. Abdomen soft. Patient be scheduled for upper and lower endoscopy tomorrow.
[2021-04-16] MEDS ORDERED: PEG 3350-NA SULF,BICARB,CL/KCL 4,000 ML BOTTLE PO ONE (12:30)
--- NOTE | 2021-04-16 18:34 | PN ---
PROGRESS NOTE DATE OF SERVICE: 04/16/2021 This 55-year-old gentleman who was admitted with significant anemia is being closely monitored at this time. Dr. Barrientos is planning upper and lower endoscopy tomorrow. Hemoglobin has improved to 8.4 after transfusion. No chest pain. No palpitations. PHYSICAL EXAMINATION: Alert, oriented x3. Pulse is 53, blood pressure is 98/57, respiration 17, temperature 97.3, pulse ox 100% on room air. HEENT: Conjunctivae normal. NECK: No jugular venous distention. CARDIOVASCULAR: S1, S2 muffled. RESPIRATION: Breath sounds diminished at the bases. No rhonchi. No crackles. ABDOMEN: Soft, nontender. LEGS: No edema. No swelling. NERVOUS SYSTEM: Higher functions as mentioned earlier. Moves all 4 limbs. No focal motor or sensory deficit. LYMPHATICS: No lymph node palpable in neck, axillae or groin. SKIN: No ulcer, rash, bleeding. JOINTS: No active deforming arthropathy. LABS: Hemoglobin 8.4. Other labs are noted. ASSESSMENT: 1. Anemia, possibly acute blood-loss anemia. Rule out GI blood-loss anemia. 2. Rule out chronic liver disease. 3. Increased white count. 4. Increased mean corpuscular volume. 5. History of ETOH. 6. Hyponatremia. 7. Elevated random glucose. 8. History of asthma. 9. History of fibromyalgia. 10.History of hypertension. 11.History of coronary artery disease, stent. 12.History of depression. 13.Remote history of nicotine dependence. 14.FULL CODE. RECOMMENDATIONS AND DISCUSSION: I recommend to continue current medications, continue with the monitoring, symptomatic treatment. Endoscopies per Surgery. Liver ultrasound was done which was reviewed personally by me and showed an unremarkable ultrasound. I would recommend repeat labs tomorrow and continue to monitor. Guarded prognosis. Further recommendations to follow. MMODL / IJN: [id number] /
[2021-04-16] MEDS: traZODone HCL 100 MG TAB PO SCH (21:00)
[2021-04-17] MEDS: THIAMINE 100 MG TAB PO SCH ×2 (08:05→15:53)
[2021-04-17] MEDS: MULTIVITAMINS, THERA 1 EACH TAB PO SCH (08:06)
[2021-04-17] MEDS: DULoxetine HCL 60 MG CAPSULE.DR PO SCH ×2 (08:07→21:00)
[2021-04-17] MEDS: PREGABALIN 75 MG CAP PO SCH ×3 (08:07→21:00)
[2021-04-17] MEDS: PANTOPRAZOLE 40 MG/10 ML VIAL IV SCH (08:08)
[2021-04-17 11:37] LABS: Anisocytosis Slight; Basophils % (A) 0 %; Eosinophils # (A) 0.1 k/uL (0-0.7); Eosinophils % (A) 1 %; HCT 24.2 % (39.0-53.0); HGB 8.4 gm/dL (13.0-17.5); Lymphocytes # (A) 1.2 k/uL (1.0-4.8); Lymphocytes % (A) 20 %; MCHC 34.8 g/dL (31.0-37.0); MCV 92.2 fL (80.0-100.0); Mean Platelet Volume 10.8; Monocytes # (A) 0.3 k/uL (0-1.0); Monocytes % (A) 5 %; Neutrophils # (A) 4.4 k/uL (1.3-7.7); Neutrophils % (A) 72 %; Platelet Count 119 k/uL (150-450); RBC 2.62 m/uL (4.30-5.90); RDW 16.8 % (11.5-15.5); WBC 6.1 k/uL (3.8-10.6)
[2021-04-17 11:46] LABS: African American GFR (CKD) >90 (>60 ml/min/1.73 sqM); Anion Gap 4 mmol/L; Blood Urea Nitrogen 8 mg/dL (9-20); Calcium 7.9 mg/dL (8.4-10.2); Carbon Dioxide 22 mmol/L (22-30); Chloride 111 mmol/L (98-107); Glucose 93 mg/dL (74-99); Non-African American GFR(CKD) >90 (>60 ml/min/1.73 sqM); Potassium 3.6 mmol/L (3.5-5.1); Sodium 137 mmol/L (137-145)
[2021-04-17] MEDS: SODIUM CHLORIDE 0.9% 1,000 ML IV SCH ×2 (14:33→15:57)
[2021-04-17] MEDS ORDERED: IV FLUID CONTINUATION 1,000 ML IV ONE (15:04)
[2021-04-17] MEDS ORDERED: PROPOFOL 10 MG/ML 20 ML VIAL IV ONE (15:04)
[2021-04-17] MEDS ORDERED: LIDOCAINE 1% INJ 10MG/ML (20 ML MDV) ONE (15:04)
--- NOTE | 2021-04-17 15:30 | P.OP ---
Date of Procedure: 04/17/21 Preoperative Diagnosis: GI bleed Postoperative Diagnosis: GI bleed Procedure(s) Performed: EGD Colonoscopy Anesthesia: MAC Surgeon: Chaka Barrientos Pathology: other (Antrum) Condition: stable Disposition: PACU Description of Procedure: Patient's placed on the endoscopy table in the lateral position. He received IV sedation. The gastro-/oropharynx passed in the esophagus stomach. The scope was then placed through the pylorus. First and second portion of duodenum appeared normal. Scope was then brought back the antrum this. Mildly inflamed. Biopsies performed. Scope was then retroflexed and remainder of the stomach appeared normal. There is no evidence of any upper GI bleed. The GE junction was at 40 cm the distal esophagus.. The proximal esophagus.. Scope withdrawn for patient. Next digital rectal exam was performed which revealed colonic stool. The flexible colonoscope was then placed patient anus and passed with colon. The scope was passed beyond the left colon secondary to poor colonic prep. There is a large amount of dark stool colon. Scope was withdrawn. T visualize colon appeared normal. There is no history active bleeding. However the view was quite due to the poor colonic prep. Scope was withdrawn. Ez to the upper GI bleed. The patient will need to be reprepped for colonoscopy.
--- NOTE | 2021-04-17 17:57 | PN ---
PROGRESS NOTE DATE OF SERVICE: 04/17/2021 This 55-year-old gentleman admitted with anemia has been evaluated by colonoscopy and EGD by Dr. Barrientos. Apparently the EGD did not show any acute abnormality. A large amount of dark stool was noted in in the lower GI tract and repeat colonoscopy is planned by Dr. Barrientos. No chest pain. No palpitations. No fever. PHYSICAL EXAMINATION: Alert and oriented x3. Pulse is 60, blood pressure 116/57, respiration 18, temperature 97.6, pulse ox 98% on room air. HEENT: Conjunctivae normal. Neck: No JVD. Cardiovascular: S1, S2 muffled. Respirations: Breath sounds diminished in the bases. No rhonchi. No crackles. Abdomen: Soft, nontender. Legs: No edema. No swelling. Nervous system: No focal deficits. LAB STUDIES: WBC 6.1, hemoglobin is 8.4. Other labs are noted. ASSESSMENT: 1. Anemia possibly acute blood-loss anemia. Rule out gastrointestinal blood loss anemia. 2. Rule out chronic liver disease. 3. Increased WBC. 4. Increased MCV. 5. History of ETOH. 6. Hyponatremia. 7. Elevated random glucose. 8. History of asthma. 9. History of fibromyalgia. 10.History of hypertension. 11.History of coronary artery disease/stent. 12.History of depression. 13.Remote history of nicotine dependence. 14.FULL CODE. RECOMMENDATIONS AND DISCUSSION: I recommend to continue current medications. Continue symptomatic treatment. Otherwise, colonoscopy was attempted and I would recommend repeat preparation and repeat scope. Prognosis guarded because of multiple complex medical issues. Further recommendations to follow. I also recommended liver ultrasound which showed no typical findings of cirrhosis of the liver. We will continue to monitor. Repeat CBC ordered. MMODL / IJN: [id number] /
[2021-04-17 19:33] VITALS: PULSE 59; RESP 18
[2021-04-17] MEDS: traZODone HCL 100 MG TAB PO SCH (21:00)
[2021-04-18 04:52] VITALS: BP 98/60; TEMP 98
[2021-04-18] MEDS: SODIUM CHLORIDE 0.9% 1,000 ML IV SCH (05:55)
[2021-04-18 06:31] LABS: Anisocytosis Slight; Basophils % (A) 0 %; Eosinophils # (A) 0.1 k/uL (0-0.7); Eosinophils % (A) 1 %; HCT 25.5 % (39.0-53.0); HGB 8.6 gm/dL (13.0-17.5); Lymphocytes # (A) 1.5 k/uL (1.0-4.8); Lymphocytes % (A) 23 %; MCH 31.6 pg (25.0-35.0); MCHC 33.6 g/dL (31.0-37.0); Mean Platelet Volume 8.7; Monocytes # (A) 0.3 k/uL (0-1.0); Monocytes % (A) 5 %; Neutrophils # (A) 4.4 k/uL (1.3-7.7); Neutrophils % (A) 69 %; Platelet Count 162 k/uL (150-450); RBC 2.71 m/uL (4.30-5.90); RDW 17.3 % (11.5-15.5); WBC 6.4 k/uL (3.8-10.6)
[2021-04-18] MEDS: PANTOPRAZOLE 40 MG/10 ML VIAL IV SCH (08:12)
[2021-04-18] MEDS: THIAMINE 100 MG TAB PO SCH (08:12)
[2021-04-18] MEDS: MULTIVITAMINS, THERA 1 EACH TAB PO SCH (08:12)
[2021-04-18] MEDS: DULoxetine HCL 60 MG CAPSULE.DR PO SCH (08:12)
[2021-04-18] MEDS: PREGABALIN 75 MG CAP PO SCH (08:12)
[2021-04-18 09:06] LABS: African American GFR (CKD) 116.6 (60.0-200.0); Anion Gap 9.5 mmol/L (10.00-18.00); BUN/Creat Ratio 9.63 Ratio (12.00-20.00); Blood Urea Nitrogen 7.7 mg/dL (9.0-27.0); Carbon Dioxide 21.5 mmol/L (20.0-27.5); Non-African American GFR(CKD) 100.6 (60.0-200.0); Potassium 3.8 mmol/L (3.5-5.5)
--- NOTE | 2021-04-18 13:37 | P.PN ---
Subjective Progress Note Date: 04/18/21 CHIEF COMPLAINT: GI bleed HISTORY OF PRESENT ILLNESS: Patient status post EGD which had shown no evidence of GI bleed. Colonoscopy showed poor prep. Patient will need a repeat colonoscopy. Denies any abdominal pain. Tolerating clear liquid diet. Stool is brownish in color. Hemoglobin stable at 8.6 PHYSICAL EXAM: VITAL SIGNS: Reviewed. GENERAL: Well-developed in no acute distress. HEENT: No sclera icterus. Extraocular movements grossly intact. Moist buccal mucosa. Head is atraumatic, normocephalic. ABDOMEN: Soft. Nondistended. Nontender. NEUROLOGIC: Alert and oriented. Cranial nerves II through XII grossly intact. ASSESSMENT: 1. Acute GI bleed 2. Acute blood loss anemia PLAN: -Due to colonoscopy having a poor bowel prep patient will require repeat colonoscopy. Colonoscopy will be rescheduled for 04/20/2021 outpatient -Prescription for GoLYTELY has been sent -Patient can be discharged from surgical standpoint with colonoscopy outpatient Physician [employer] Specialist note has been reviewed by physician. Signing provider agrees with the documented findings, assessment, and plan of care. Objective - Vital Signs Vital signs: Vital Signs Temp 98.0 F 04/18/21 03:45 Pulse 59 L 04/18/21 03:45 Resp 18 04/18/21 03:45 BP 98/60 04/18/21 03:45 Pulse Ox 99 04/18/21 03:45 Intake & Output 04/17/21 04/18/21 04/18/21 18:59 06:59 18:59 Intake Total 1250 1200 Balance 1250 1200 Intake: IV 50 Intake, IV Titration 1200 1200 Amount Sodium Chloride 0.9% 1, 1200 1200 000 ml @ 100 mls/hr IV . Q10H [facility] Rx#:[id number] Other: Voiding Method Toilet Toilet Toilet Urinal Urinal Urinal - Labs CBC & Chem 7: 04/18/21 05:45 04/18/21 05:45 Labs: Abnormal Lab Results - Last 24 Hours (Table) 04/18/21 04/18/21 Range/Units 05:45 05:45 RBC 2.71 L (4.30-5.90) m/uL Hgb 8.6 L (13.0-17.5) gm/dL Hct 25.5 L (39.0-53.0) % RDW 17.3 H (11.5-15.5) % Chloride 111 H (96-109) mmol/L Anion Gap 9.50 L (10.00-18.00) mmol/L BUN 7.7 L (9.0-27.0) mg/dL BUN/Creatinine Ratio 9.63 L (12.00-20.00) Ratio Calcium 8.0 L (8.7-10.3) mg/dL
--- NOTE | 2021-04-18 16:41 | DS ---
DISCHARGE SUMMARY FINAL DIAGNOSES: 1. Anemia, possibly acute blood-loss anemia. Rule out gastrointestinal blood loss anemia, stable. 2. Chronic liver disease ruled out. 3. Increased WBC. 4. Status post transfusions. 5. Increased MCV. 6. History of ETOH. 7. Hyponatremia. 8. Elevated random glucose. 9. History of asthma. 10.History of fibromyalgia. 11.History of hypertension. 12.History of coronary artery disease, stent. 13.History of depression. 14.Remote history of nicotine dependence. 15.FULL CODE. DISCHARGE DISPOSITION: Patient is being discharged in stable condition with guarded prognosis. HISTORY OF PRESENT ILLNESS: This 55-year-old gentleman with past medical history of multiple medical problems admitted with anemia and acute blood loss anemia. Hemoglobin was 6 but after transfusion, improved to 8.5. No active bleeding was noted. Surgery saw the patient and the EGD did not show acute abnormality except gastritis. Otherwise, colonoscopy could not be completed and the patient is stable. Patient being discharged in stable condition with guarded prognosis. EXAM: Vitals signs stable. Cardiovascular: S1, S2. Abdomen soft. Nervous system: No focal deficits. DISCHARGE ADVICE AND MEDICATIONS: 1. Diet is cardiac diet. 2. Activity limited until followup. 3. Follow up with Dr. Ayala in 2-3 days. 4. Follow up with Dr. Lopez in 2 to 3 days. 5. CBC, BMP. 6. Follow with surgery as recommended. MEDICATIONS: 1. Cymbalta 60 mg p.o. b.i.d. 2. Desyrel 100 mg p.o. q.h.s. 3. Lyrica 150 mg t.i.d. 4. Nitrostat p.r.n. 5. ProAir 2 puffs q.i.d. 6. Spiriva 1 puff daily. 7. Symbicort b.i.d. 8. Multivitamins 1 p.o. daily. 9. Protonix 40 mg daily. 10.Tylenol p.r.n. 11.Vitamin B1 100 mg p.o. daily. 12.Hold Plavix for now. 13.No antiplatelets or anticoagulants for now. Once again, the patient will be discharged in stable condition with guarded prognosis. Follow up with Dr. Ayala in 2-[address] Ayala. MMODL / IJN: [id number] /
== END 2021-04-18 15:07 | disposition home or self-care (01) | DRG 378 ==
LOC: EC 21:56 → 5NMEDONC 04-15 01:13
PROVIDERS: ADMIT Internal Medicine; ATTEND Internal Medicine
PROC: 30233N1 Transfusion of Nonautologous Red Blood Cells into Peripheral Vein, Percutaneous Approach (ICD-10-PCS; 2021-04-15)
PROC: 0DJ08ZZ Inspection of Upper Intestinal Tract, Via Natural or Artificial Opening Endoscopic (ICD-10-PCS; principal; 2021-04-17 07:50)
PROC: 0DJD8ZZ Inspection of Lower Intestinal Tract, Via Natural or Artificial Opening Endoscopic (ICD-10-PCS; principal; 2021-04-17 07:50)
DX: K29.71 Gastritis, unspecified, with bleeding (principal); D62 Acute posthemorrhagic anemia; E87.1 Hypo-osmolality and hyponatremia; I10 Essential (primary) hypertension; I25.10 Atherosclerotic heart disease of native coronary artery without angina pectoris; J45.909 Unspecified asthma, uncomplicated; M79.7 Fibromyalgia; Z79.02 Long term (current) use of antithrombotics/antiplatelets; Z79.51 Long term (current) use of inhaled steroids; Z79.82 Long term (current) use of aspirin; Z79.899 Other long term (current) drug therapy; Z80.9 Family history of malignant neoplasm, unspecified; Z95.5 Presence of coronary angioplasty implant and graft; R73.9 Hyperglycemia, unspecified; F32.A Depression, unspecified; Z87.891 Personal history of nicotine dependence; Z53.09 Procedure and treatment not carried out because of other contraindication
CPT/HCPCS: 36415; 43239; 45378; 71046; 76705; 80048; 80053; 80320; 81003; 84484; 85025; 85027; 85610; 85730; 86850; 86900; 86901; 86920; 87635; 88305; 88342; 93005; 94760; 96374; 99285

== ENCOUNTER 2021-12-20 19:00 | Inpatient (IN) | payer OTHER ==
[2021-12-20] MEDS ORDERED: SODIUM CHLORIDE 0.9% 1,000 ML IV STA (20:06)
[2021-12-20 20:24] LABS: Basophils % (A) 0 %; Eosinophils # (A) 0.1 k/uL (0-0.7); Eosinophils % (A) 1 %; HCT 35.8 % (39.0-53.0); HGB 10.7 gm/dL (13.0-17.5); Hypochromasia Marked; Lymphocytes # (A) 1.3 k/uL (1.0-4.8); Lymphocytes % (A) 17 %; MCH 27.3 pg (25.0-35.0); MCHC 29.9 g/dL (31.0-37.0); MCV 91.3 fL (80.0-100.0); Mean Platelet Volume 8.8; Monocytes # (A) 0.6 k/uL (0-1.0); Monocytes % (A) 8 %; Neutrophils # (A) 5.8 k/uL (1.3-7.7); Neutrophils % (A) 73 %; Platelet Count 315 k/uL (150-450); RBC 3.93 m/uL (4.30-5.90); RDW 15.7 % (11.5-15.5); WBC 7.9 k/uL (3.8-10.6)
[2021-12-20 20:28] LABS: AST 27 U/L (17-59); African American GFR (CKD) >90 (>60 ml/min/1.73 sqM); Albumin 4.5 g/dL (3.5-5.0); Alcohol <10 mg/dL; Alkaline Phosphatase 78 U/L (38-126); Anion Gap 20 mmol/L; Blood Urea Nitrogen 11 mg/dL (9-20); Calcium 9.2 mg/dL (8.4-10.2); Carbon Dioxide 14 mmol/L (22-30); Chloride 103 mmol/L (98-107); Glucose 151 mg/dL (74-99); Magnesium 2.3 mg/dL (1.6-2.3); Non-African American GFR(CKD) 89 (>60 ml/min/1.73 sqM); Potassium 4.1 mmol/L (3.5-5.1); Sodium 137 mmol/L (137-145); Total Bilirubin 0.4 mg/dL (0.2-1.3); Total Protein 6.9 g/dL (6.3-8.2)
[2021-12-20 20:35] LABS: ALT 21 U/L (4-49)
--- NOTE | 2021-12-20 20:36 | ED ---
General Adult HPI - General Chief complaint: Syncope Stated complaint: ETOH/Fall Time Seen by Provider: 12/20/21 19:03 Source: patient, EMS, RN notes reviewed Mode of arrival: EMS Limitations: no limitations - History of Present Illness Initial comments: 56-year-old male presents to the emergency department via EMS for evaluation status post syncopal episode. Patient states he recalls drinking a few beers earlier today and then picked up a cigarette off the ground which he said tasted like "turpentine" then became dizzy and dropped to his knees. States he recalls being on the ground the waking up again when he was in the ambulance. States has been decreasing his intake of nicotine and ETOH, and does use weed occasionally. States he is has been taking his medications as prescribed and denies any new meds. No fever, chills, headache, chest pain, shortness of breath, abdominal pain, nausea, vomiting, diarrhea, dysuria, hematuria, or lower extremity edema. Denies any fall or injury to head or neck. - Related Data Home Medications Medication Instructions Recorded Confirmed traZODone HCL [Desyrel] 100 mg PO HS 09/27/12/01/21 DULoxetine HCL [Cymbalta] 60 mg PO BID 11/13/16 12/01/21 Budesonide/Formoterol Fumarate 2 puff INHALATION RT-BID PRN 10/14/17 12/01/21 [Symbicort 160-4.5 Mcg Inhaler] Nitroglycerin Sl Tabs [Nitrostat] 0.4 mg SUBLINGUAL Q5M PRN 10/14/17 12/01/21 Albuterol Sulfate [Proair Hfa] 2 puff INHALATION RT-Q6H PRN 04/15/21 12/01/21 Tiotropium 2.5 Mcg/Puff [Spiriva 2 puff INHALATION RT-DAILY PRN 04/15/21 12/01/21 Respimat 2.5 Mcg] Pregabalin [Lyrica] 75 mg PO BID 12/01/21 12/01/21 traMADol HCL 50 mg PO TID PRN 12/01/21 12/01/21 Previous Rx's Medication Instructions Recorded Acetaminophen Tab [Tylenol] 650 mg PO Q4HR PRN tab 12/08/21 Aspirin 162 mg PO DAILY 30 Days #60 tab 12/08/21 Atorvastatin [Lipitor] 80 mg PO DAILY 30 Days #30 tab 12/08/21 Clopidogrel [Plavix] 75 mg PO DAILY 30 Days #30 tab 12/08/21 Famotidine [Pepcid] 20 mg PO BID 15 Days #30 tab 12/08/21 HYDROcodone/APAP 5-325MG [[place] 1 each PO Q4HR PRN #9 tab 12/08/21 5-325] Nicotine 14Mg/24Hr Patch [Habitrol] 1 patch TRANSDERM DAILY #20 patch 12/08/21 Thiamine [Vitamin B-1] 100 mg PO DAILY #30 tab 12/08/21 Allergies Allergy/AdvReac Type Severity Reaction Status Date / Time No Known Allergies Allergy Verified 12/01/21 23:27 Review of Systems ROS Statement: Those systems with pertinent positive or pertinent negative responses have been documented in the HPI. ROS Other: All systems not noted in ROS Statement are negative. Past Medical History Past Medical History: Asthma, Fibromyalgia, GI Bleed, Hypertension, Myocardial Infarction (CT) Additional Past Medical History / Comment(s): fibromyalgia Last Myocardial Infarction Date:: 7-8 YRS AGO History of Any Multi-Drug Resistant Organisms: None Reported Past Surgical History: Heart Catheterization With Stent Additional Past Surgical History / Comment(s): tumor removal from neck Past Anesthesia/Blood Transfusion Reactions: No Reported Reaction Date of Last Stent Placement:: 12/01/2018 Past Psychological History: Depression Smoking Status: Current every day smoker Past Alcohol Use History: Heavy Past Drug Use History: Marijuana - Past Family History Sister(s) Family Medical History: Cancer General Exam Limitations: no limitations (Well-developed, well-nourished male in no acute distress.) General appearance: alert, in no apparent distress Head exam: Present: atraumatic, normocephalic, normal inspection Eye exam: Present: normal appearance, PERRL, EOMI. Absent: scleral icterus, co njunctival injection, periorbital swelling ENT exam: Present: normal exam, normal oropharynx, mucous membranes moist Neck exam: Present: normal inspection, full ROM. Absent: tenderness Respiratory exam: Present: normal lung sounds bilaterally. Absent: respiratory distress, wheezes, rales, rhonchi, stridor, chest wall tenderness Cardiovascular Exam: Present: regular rate, normal rhythm, normal heart sounds. Absent: systolic murmur, diastolic murmur, rubs, gallop, clicks GI/Abdominal exam: Present: soft, normal bowel sounds. Absent: distended, tenderness, guarding, rebound, rigid Back exam: Present: normal inspection, full ROM. Absent: CVA tenderness (R), CVA tenderness (L), paraspinal tenderness, vertebral tenderness Neurological exam: Present: alert, oriented X3 Expanded Patient oriented to: Present: person, place, time Speech: Present: fluid speech Cranial nerves: EOM's Intact: Normal, Tongue Deviation: Normal, Nystagmus: Nor mal Cerebellar function: Finger to Nose: Normal Motor strength exam: RUE: 5, LUE: 5, RLE: 5, LLE: 5 Eye Response: (4) open spontaneously Motor Response: (6) obeys commands Verbal Response: (5) oriented [place] Total: 15 Psychiatric exam: Present: normal affect, normal mood Skin exam: Present: warm, dry, intact, normal color. Absent: rash Course Vital Signs 12/20/21 12/20/21 12/21/21 19:04 19:34 00:20 Pulse Rate 101 H 98 Pulse Rate [ 78 Apical] Respiratory 20 16 Rate Blood Pressure 154/83 139/84 O2 Sat by Pulse 100 100 Oximetry 12/21/21 02:01 Pulse Rate 97 Pulse Rate [ Apical] Respiratory 18 Rate Blood Pressure 136/86 O2 Sat by Pulse 99 Oximetry - Reevaluation(s) Reevaluation #1: 12/20/21 23:33 Patient appears to have had a seizure as he is incontinent, confused, and diaphoretic. Moving all four extremities purposefully. Seizure precautions instituted. Patient given 1 mg of Ativan and a repeat does of 2mg . As this seizure is likely the result of alcohol withdrawal, he will be admitted to the hospital for further evaluation and treatment. 12/21/21 00:10 Patient given 1 amp of D-50% for accucheck 66. Will continue to monitor. Pending inpatient admission. Medical Decision Making - Medical Decision Making This is a 56-year-old male with a past medical history of alcoholism and polysubstance abuse who presents to the emergency department for evaluation of possible syncopal episode. Upon arrival, patient is awake, alert, oriented and answering all questions appropriately. He is neurologically intact with no focal deficits. He does report daily alcohol intake though has been attempting to reduce this. During his visit, patient experienced a seizure in which he was incontinent and postictal. Was given Ativan for confusion and restlessness. As his seizure is likely secondary to alcohol withdrawal he will be admitted to the hospital for further evaluation and treatment. CT and chest x-ray were both negative. Keppra initiated in ED. Laboratory studies were reviewed showing stable hemoglobin of 10.7, hematocrit 35.8. Electrolytes are within normal limits with exception of repeat accucheck showing glucose 65 which was treated with an amp of D50% and started on D5- .45NaCl. Serum alcohol is<10. Urine drug screen is positive for opiates, amphetamines, methamphetamines, and marijuana. Patient does take tramadol daily and admits to regular marijuana use. I spoke with BEENA Knight who accepts this patient on behalf of [facility]. Consult to neurology was placed. Attending: Bi. - Lab Data Result diagrams: 12/20/21 20:19 12/20/21 20:19 Lab Results 12/20/21 12/20/21 12/20/21 Range/Units 20:19 20:19 20:19 WBC 7.9 (3.8-10.6) k/uL RBC 3.93 L (4.30-5.90) m/uL Hgb 10.7 L (13.0-17.5) gm/dL Hct 35.8 L (39.0-53.0) % MCV 91.3 (80.0-100.0) fL MCH 27.3 (25.0-35.0) pg MCHC 29.9 L (31.0-37.0) g/dL RDW 15.7 H (11.5-15.5) % Plt Count 315 (150-450) k/uL MPV 8.8 Neutrophils % 73 % Lymphocytes % 17 % Monocytes % 8 % Eosinophils % 1 % Basophils % 0 % Neutrophils # 5.8 (1.3-7.7) k/uL Lymphocytes # 1.3 (1.0-4.8) k/uL Monocytes # 0.6 (0-1.0) k/uL Eosinophils # 0.1 (0-0.7) k/uL Basophils # 0.0 (0-0.2) k/uL Hypochromasia Marked PT 10.2 (9.0-12.0) sec INR 0.9 (<1.2) APTT 22.5 (22.0-30.0) sec D-Dimer 0.51 (<0.60) mg/L FEU Sodium 137 (137-145) mmol/L Potassium 4.1 (3.5-5.1) mmol/L Chloride 103 (98-107) mmol/L Carbon Dioxide 14 L (22-30) mmol/L Anion Gap 20 mmol/L BUN 11 (9-20) mg/dL Creatinine 0.96 (0.66-1.25) mg/dL Est GFR (CKD-EPI)AfAm >90 (>60 ml/min/1.73 sqM) Est GFR (CKD-EPI)NonAf 89 (>60 ml/min/1.73 sqM) Glucose 151 H (74-99) mg/dL Calcium 9.2 (8.4-10.2) mg/dL Magnesium 2.3 (1.6-2.3) mg/dL Total Bilirubin 0.4 (0.2-1.3) mg/dL AST 27 (17-59) U/L ALT 21 (4-49) U/L Alkaline Phosphatase 78 (38-126) U/L Troponin I (0.000-0.034) ng/mL Total Protein 6.9 (6.3-8.2) g/dL Albumin 4.5 (3.5-5.0) g/dL Urine Color Urine Appearance (Clear) Urine pH (5.0-8.0) Ur Specific [place] (1.001-1.035) Urine Protein (Negative) Urine Glucose (UA) (Negative) Urine Ketones (Negative) Urine Blood (Negative) Urine Nitrite (Negative) Urine Bilirubin (Negative) Urine Urobilinogen (<2.0) mg/dL Ur Leukocyte Esterase (Negative) Urine RBC (0-5) /hpf Urine WBC (0-5) /hpf Hyaline Casts (0-2) /lpf Urine Mucus (None) /hpf Urine Opiates Screen (NotDetected) Ur Oxycodone Screen (NotDetected) Urine Methadone Screen (NotDetected) Ur Propoxyphene Screen (NotDetected) Ur Barbiturates Screen (NotDetected) U Tricyclic Antidepress (NotDetected) Ur Phencyclidine Scrn (NotDetected) Ur Amphetamines Screen (NotDetected) U Methamphetamines Scrn (NotDetected) U Benzodiazepines Scrn (NotDetected) Urine Cocaine Screen (NotDetected) U Marijuana (THC) Screen (NotDetected) Serum Alcohol <10 mg/dL 12/20/21 12/20/21 Range/Units 20:19 21:01 WBC (3.8-10.6) k/uL RBC (4.30-5.90) m/uL Hgb (13.0-17.5) gm/dL Hct (39.0-53.0) % MCV (80.0-100.0) fL MCH (25.0-35.0) pg MCHC (31.0-37.0) g/dL RDW (11.5-15.5) % Plt Count (150-450) k/uL MPV Neutrophils % % Lymphocytes % % Monocytes % % Eosinophils % % Basophils % % Neutrophils # (1.3-7.7) k/uL Lymphocytes # (1.0-4.8) k/uL Monocytes # (0-1.0) k/uL Eosinophils # (0-0.7) k/uL Basophils # (0-0.2) k/uL Hypochromasia PT (9.0-12.0) sec INR (<1.2) APTT (22.0-30.0) sec D-Dimer (<0.60) mg/L FEU Sodium (137-145) mmol/L Potassium (3.5-5.1) mmol/L Chloride (98-107) mmol/L Carbon Dioxide (22-30) mmol/L Anion Gap mmol/L BUN (9-20) mg/dL Creatinine (0.66-1.25) mg/dL Est GFR (CKD-EPI)AfAm (>60 ml/min/1.73 sqM) Est GFR (CKD-EPI)NonAf (>60 ml/min/1.73 sqM) Glucose (74-99) mg/dL Calcium (8.4-10.2) mg/dL Magnesium (1.6-2.3) mg/dL Total Bilirubin (0.2-1.3) mg/dL AST (17-59) U/L ALT (4-49) U/L Alkaline Phosphatase (38-126) U/L Troponin I <0.012 (0.000-0.034) ng/mL Total Protein (6.3-8.2) g/dL Albumin (3.5-5.0) g/dL Urine Color Yellow Urine Appearance Clear (Clear) Urine pH 6.0 (5.0-8.0) Ur Specific [place] 1.017 (1.001-1.035) Urine Protein 1+ H (Negative) Urine Glucose (UA) Negative (Negative) Urine Ketones 1+ H (Negative) Urine Blood Negative (Negative) Urine Nitrite Negative (Negative) Urine Bilirubin Negative (Negative) Urine Urobilinogen <2.0 (<2.0) mg/dL Ur Leukocyte Esterase Negative (Negative) Urine RBC 2 (0-5) /hpf Urine WBC <1 (0-5) /hpf Hyaline Casts 1 (0-2) /lpf Urine Mucus Rare H (None) /hpf Urine Opiates Screen Detected H (NotDetected) Ur Oxycodone Screen Not Detected (NotDetected) Urine Methadone Screen Not Detected (NotDetected) Ur Propoxyphene Screen Not Detected (NotDetected) Ur Barbiturates Screen Not Detected (NotDetected) U Tricyclic Antidepress Not Detected (NotDetected) Ur Phencyclidine Scrn Not Detected (NotDetected) Ur Amphetamines Screen Detected H (NotDetected) U Methamphetamines Scrn Detected H (NotDetected) U Benzodiazepines Scrn Not Detected (NotDetected) Urine Cocaine Screen Not Detected (NotDetected) U Marijuana (THC) Screen Detected H (NotDetected) Serum Alcohol mg/dL - EKG Data EKG shows normal: sinus rhythm Rate: normal EKG Comments: EKG obtained at 1803 shows ectopic atrial rhythm with possible left atrial enlargement, low QRS voltage in the extremity leads, incomplete right bundle- branch block, and abnormal QRST angle. Ventricular rate 98, OH interval 159, QRS duration 97, QT/QTC 364/419. Interpretation abnormal ECG. - Radiology Data Radiology results: report reviewed, image reviewed CT of the brain was obtained. Report was reviewed in its entirety. Impression per Dr. Orlando is no acute intracranial process identified. Two-view chest x-ray was obtained. Report was reviewed in its entirety. Impression per Dr. Cheney is normal chest x-ray. Disposition Clinical Impression: Alcohol withdrawal seizure, Polysubstance abuse Disposition: ADMITTED IP TO THIS [facility] Condition: Serious Decision Date: 12/20/21 Decision Time: 23:53
[2021-12-20 21:06] LABS: Appearance,Urine Clear (Clear); Bilirubin,Urine Negative (Negative); Blood,Urine Negative (Negative); Color,Urine Yellow; Glucose,Urine (UA) Negative (Negative); Hyaline Casts,Urine 1 /lpf (0-2); Ketones,Urine 1+ (Negative); Leukocyte Esterase,Urine Negative (Negative); Mucus,Urine Rare /hpf; Nitrite,Urine Negative (Negative); Protein,Urine 1+ (Negative); RBC,Urine 2 /hpf (0-5); Specific Gravity,Urine 1.017 (1.001-1.035); Urobilinogen,Urine <2.0 mg/dL (<2.0); WBC,Urine <1 /hpf (0-5)
[2021-12-20 21:17] LABS: INR 0.9 (<1.2); Partial Thromboplastin Time 22.5 sec (22.0-30.0); Prothrombin Time 10.2 sec (9.0-12.0)
[2021-12-20 21:37] LABS: Amphetamine Screen,Urine Detected (NotDetected); Barbiturate Screen,Urine Not Detected (NotDetected); Benzodiazepines Screen,Urine Not Detected (NotDetected); Cocaine Screen,Urine Not Detected (NotDetected); Methadone Screen, Urine Not Detected (NotDetected); Opiate Screen,Urine Detected (NotDetected); Oxycodone Screen, Urine Not Detected (NotDetected); Phencyclidine Screen,Urine Not Detected (NotDetected); Tricyclic Antidepressant,Urine Not Detected (NotDetected); Urn Cannabinoid Scrn Detected (NotDetected)
--- NOTE | 2021-12-20 21:51 | XR ---
EXAM: XR Chest, 2 Views CLINICAL HISTORY: ITS.REASON XR Reason: syncope TECHNIQUE: Frontal and lateral views of the chest. COMPARISON: No relevant prior studies available. FINDINGS: Lungs: Unremarkable. No consolidation. Pleural space: Unremarkable. No pneumothorax. Heart: Unremarkable. No cardiomegaly. Mediastinum: Unremarkable. Bones/joints: Unremarkable. IMPRESSION: Normal chest x-rays.
--- NOTE | 2021-12-20 23:19 | CT ---
EXAM: CT Head Without Intravenous Contrast CLINICAL HISTORY: ITS.REASON CT Reason: syncope TECHNIQUE: Axial computed tomography images of the head/brain without intravenous contrast. CTDI is 49.1 mGy and DLP is 1078 mGy-cm. This CT exam was performed using one or more of the following dose reduction techniques: automated exposure control, adjustment of the mA and/or kV according to patient size, and/or use of iterative reconstruction technique. COMPARISON: No relevant prior studies available. FINDINGS: Brain: Unremarkable. No hemorrhage. No significant white matter disease. No edema. Ventricles: Unremarkable. No ventriculomegaly. Bones/joints: Unremarkable. No acute fracture. Soft tissues: No significant overlying acute traumatic soft tissue abnormality. No radiopaque foreign body. Sinuses: Unremarkable as visualized. No acute sinusitis. Mastoid air cells: Unremarkable as visualized. No mastoid effusion. IMPRESSION: No acute intracranial process identified.
[2021-12-20] MEDS ORDERED: LORazepam 2 MG/ML INJ IV STA ×2 (23:29→23:45)
[2021-12-20] MEDS ORDERED: levETIRAcetam IV 1,500 MG in SALINE 1 100ML.BAG IVPB STA (23:38)
[2021-12-20] MEDS ORDERED: HYDROmorphone 0.5 MG/0.5 ML SYRINGE IVP PRN (23:59)
[2021-12-20] MEDS ORDERED: ONDANSETRON 4 MG/2 ML VIAL IVP PRN (23:59)
[2021-12-20] MEDS ORDERED: NALOXONE 0.4 MG/ML 1 ML VIAL IV PRN (23:59)
[2021-12-21] MEDS ORDERED: DEXTROSE 50% SYRINGE 50 ML IVP STA (00:09)
[2021-12-21 00:10] LABS: Glucose,Whole Blood 66 mg/dL (70-110)
[2021-12-21] MEDS ORDERED: LORazepam 2 MG/ML INJ IV STA (00:17)
[2021-12-21 01:15] LABS: Glucose,Whole Blood 116 mg/dL (70-110)
[2021-12-21 02:37] LABS: Glucose,Whole Blood 85 mg/dL (70-110)
[2021-12-21] MEDS: DEXTROSE 5%-0.45% NACL 1,000 ML IV SCH ×2 (03:22→20:36)
[2021-12-21 06:30] LABS: Glucose,Whole Blood 104 mg/dL (70-110)
--- NOTE | 2021-12-21 08:13 | P.HPIM ---
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 Moving all four extremities purposefully. Seizure precautions instituted. Pat ient given 1 mg of Ativan and a repeat does of 2mg In the emergency room patient received volume scheduled 5 mg every 4 hours, Ativan and Versed Currently patient is very sleepy, hard to make him up, however he withdraws for painful tactile stimuli Patient is hemodynamically stable. Afebrile. Labs reviewed. He has anemia with hemoglobin 10.7. INR is normal 0.9. D-dimer is -0.51. BMP and liver enzymes are unremarkable. Glucose was low at 66, currently his glucose is 140. Liver enzymes and troponin elevated. EKG showing ectopic atrial rhythm with low voltage. Chest x-ray: No acute process CT of the brain: No acute intracranial process In the emergency room he received normal saline, Ativan, Keppra Patient currently kept on Keppra 1000 mg twice daily, Valium 5 mg every 4 hours. With neurology and psychiatry team consulted Review of Systems ROS unobtainable: due to mental status Past Medical History Past Medical History: Asthma, Fibromyalgia, GI Bleed, Hypertension, Myocardial Infarction ([place]) Additional Past Medical History / Comment(s): fibromyalgia Last Myocardial Infarction Date:: 7-8 YRS AGO History of Any Multi-Drug Resistant Organisms: None Reported Past Surgical History: Heart Catheterization With Stent Additional Past Surgical History / Comment(s): tumor removal from neck Past Anesthesia/Blood Transfusion Reactions: No Reported Reaction Date of Last Stent Placement:: 12/01/2018 Past Psychological History: Depression Smoking Status: Current every day smoker Past Alcohol Use History: Heavy Past Drug Use History: Marijuana - Past Family History Sister(s) Family Medical History: Cancer Medications and Allergies Home Medications Medication Instructions Recorded Confirmed Type traZODone HCL [Desyrel] 100 mg PO HS 09/28/15 12/21/21 History DULoxetine HCL [Cymbalta] 60 mg PO BID 11/13/16 12/21/21 History Budesonide/Formoterol Fumarate 2 puff INHALATION RT-BID PRN 10/14/17 12/21/21 History [Symbicort 160-4.5 Mcg Inhaler] Nitroglycerin Sl Tabs [Nitrostat] 0.4 mg SUBLINGUAL Q5M PRN 10/14/17 12/21/21 History Albuterol Sulfate [Proair Hfa] 2 puff INHALATION RT-Q6H PRN 04/15/21 12/21/21 Hi story Tiotropium 2.5 Mcg/Puff [Spiriva 2 puff INHALATION RT-DAILY PRN 04/15/21 12/21/21 History Respimat 2.5 Mcg] Pregabalin [Lyrica] 75 mg PO BID 12/01/21 12/21/21 History traMADol HCL 50 mg PO TID PRN 12/01/21 12/21/21 History Acetaminophen Tab [Tylenol] 650 mg PO Q4HR PRN tab 12/08/21 12/21/21 Rx Aspirin 162 mg PO DAILY 30 Days #60 tab 12/08/21 12/21/21 Rx Atorvastatin [Lipitor] 80 mg PO DAILY 30 Days #30 tab 12/08/21 12/21/21 Rx Clopidogrel [Plavix] 75 mg PO DAILY 30 Days #30 tab 12/08/21 12/21/21 Rx Famotidine [Pepcid] 20 mg PO BID 15 Days #30 tab 12/08/21 12/21/21 Rx HYDROcodone/APAP 5-325MG [[place] 1 each PO Q4HR PRN #9 tab 12/08/21 12/21/21 Rx 5-325] Nicotine 14Mg/24Hr Patch [Habitrol] 1 patch TRANSDERM DAILY #20 patch 12/08/21 12/21/21 Rx Thiamine [Vitamin B-1] 100 mg PO DAILY #30 tab 12/08/21 12/21/21 Rx Allergies Allergy/AdvReac Type Severity Reaction Status Date / Time No Known Allergies Allergy Verified 12/01/21 23:27 Physical Exam Vitals: Vital Signs Pulse Pulse Resp BP Pulse Ox 12/21/21 05:02 78 18 119/80 98 12/21/21 02:01 97 18 136/86 99 12/21/21 00:20 98 16 139/84 100 12/20/21 19:34 78 12/20/21 19:04 101 H 20 154/83 100 Intake and Output 12/20/21 12/20/21 12/21/21 14:59 22:59 06:59 Other: Weight 63.503 kg -GENERAL: The patient is very sleepy hard to awake, not in any acute distress. Well developed, well nourished. HEENT: Pupils are round and equally reacting to light. EOMI. No scleral icterus. No conjunctival pallor. Normocephalic, atraumatic. No pharyngeal erythema. No thyromegaly. CARDIOVASCULAR: S1 and S2 present. No murmurs, rubs, or gallops. PULMONARY: Chest is clear to auscultation, no wheezing or crackles. ABDOMEN: Soft, nontender, nondistended, normoactive bowel sounds. No palpable organomegaly. MUSCULOSKELETAL: No joint swelling or deformity. EXTREMITIES: No cyanosis, clubbing, or pedal edema. NEUROLOGICAL: Gross neurological examination did not reveal any focal deficits. SKIN: No rashes. no petechiae. Results CBC & Chem 7: 12/20/21 20:19 12/20/21 20:19 Labs: Abnormal Lab Results - Last 24 Hours (Table) 12/20/21 12/20/21 12/20/21 Range/Units 20:19 20:19 21:01 RBC 3.93 L (4.30-5.90) m/uL Hgb 10.7 L (13.0-17.5) gm/dL Hct 35.8 L (39.0-53.0) % MCHC 29.9 L (31.0-37.0) g/dL RDW 15.7 H (11.5-15.5) % Carbon Dioxide 14 L (22-30) mmol/L Glucose 151 H (74-99) mg/dL POC Glucose (mg/dL) (70-110) mg/dL Urine Protein 1+ H (Negative) Urine Ketones 1+ H (Negative) Urine Mucus Rare H (None) /hpf Urine Opiates Screen Detected H (NotDetected) Ur Amphetamines Screen Detected H (NotDetected) U Methamphetamines Scrn Detected H (NotDetected) U Marijuana (THC) Screen Detected H (NotDetected) 12/21/21 12/21/21 Range/Units 00:09 01:13 RBC (4.30-5.90) m/uL Hgb (13.0-17.5) gm/dL Hct (39.0-53.0) % MCHC (31.0-37.0) g/dL RDW (11.5-15.5) % Carbon Dioxide (22-30) mmol/L Glucose (74-99) mg/dL POC Glucose (mg/dL) 66 L 116 H (70-110) mg/dL Urine Protein (Negative) Urine Ketones (Negative) Urine Mucus (None) /hpf Urine Opiates Screen (NotDetected) Ur Amphetamines Screen (NotDetected) U Methamphetamines Scrn (NotDetected) U Marijuana (THC) Screen (NotDetected) Assessment and Plan Assessment: Syncope Alcohol withdrawal with possible alcohol withdrawal seizure Alcohol abuse hypoglycemia, present on admission Seizure witnessed in the emergency room Toxic/metabolic encephalopathy, partly due to benzodiazepine medication COPD, not an active issue History of coronary artery disease status post stenting Hypertension History of coronary artery disease status post stenting Nicotine dependence History of fibromyalgia History of GI bleed History of neck tumor status post resection Plan: This is a pleasant 56 years old male who presents with alcohol withdrawal and seizure Patient is currently on Keppra and the neurologist been consulted . The patient will need EEG Continue with CIWA protocol Continue with thiamin Consult cardiology service for syncope and ectopic atrial rhythm Psychiatry consult Nutrition consult . Patient currently on D5 half-normal saline for hypoglycemia Check vitamin B12, TSH and hemoglobin A1c Labs and medication were reviewed.. Continue same treatment. Continue with symptomatic treatment. Resume home medication. Monitor lytes and vitals. DVT and GI prophylaxis. Further recommendations as per clinical course of the patient DVT prophylaxis: Subcutaneous heparin GI Prophylaxis: Pepcid PT/OT: Pending Prognosis is guarded
[2021-12-21] MEDS ORDERED: LORazepam 2 MG/ML INJ IV PRN ×3 (08:24)
[2021-12-21] MEDS ORDERED: THIAMINE 100 MG in SODIUM CHLORIDE 0.9% 50 ML IVPB SCH (09:00)
[2021-12-21 09:02] LABS: T4, Free (Free Thyroxine) 1.28 ng/dL (0.78-2.19)
[2021-12-21] MEDS: SODIUM CHLORIDE 0.9% 1,000 ML IV SCH ×3 (10:23→20:37)
[2021-12-21] MEDS: MULTIVITAMINS, THERA 1 EACH TAB PO SCH (10:36)
[2021-12-21] MEDS: FAMOTIDINE 20 MG TAB PO SCH ×2 (10:36→21:55)
[2021-12-21] MEDS: THIAMINE 100 MG/ML 2 ML VIAL IVP SCH ×2 (10:36→22:34)
--- NOTE | 2021-12-21 11:12 | CONS ---
CONSULTATION CHIEF COMPLAINT: Syncope. HISTORY OF PRESENT ILLNESS: Isrrael is a 56-year-old gentleman with a history of dyslipidemia, coronary artery disease, status post angioplasty of 95% focal stenosis in the right coronary artery in 2019 with a chronically occluded circumflex coronary artery, dyslipidemia, and COPD, who presented to the hospital having had an episode of syncope. The patient apparently had a seizure, became incontinent, confused, and diaphoretic. The patient has had a history of ETOH abuse and apparently was smoking with a cigarette that was laced with methamphetamine. Because of the seizure, the patient was given Ativan and Versed and at the time of my evaluation appears obtunded, confused, and not able to give me any information. I reviewed the history and physical done by Dr. Sal and all the other information I have in the chart including the prior angiograms and angioplasties. An EKG on this admission revealed sinus rhythm without significant ST-T wave changes. Labs showed that the urine drug screen was positive for amphetamines and opiates. Potassium was 4.1, creatinine was 0.9. Troponin was negative. TSH is normal at 5.5. Hemoglobin is low at 10.7. PAST MEDICAL HISTORY: Significant for coronary artery disease, status post prior angioplasty, hypertension, dyslipidemia, and COPD. MEDICATIONS: Medications at home included, 1. Desyrel. 2. Lyrica. 3. Pepcid. 4. Cymbalta. 5. Symbicort. 6. Lipitor. 7. Aspirin. 8. ProAir. ALLERGIES: There are no known drug allergies. FAMILY HISTORY: I am unable to obtain from the patient who is confused and obtunded secondary to sedation. SOCIAL HISTORY: I am unable to obtain from the patient who is confused and obtunded secondary to sedation. REVIEW OF SYSTEMS: I am unable to obtain from the patient who is confused and obtunded secondary to sedation. PHYSICAL EXAMINATION: GENERAL: Comfortable at rest. VITAL SIGNS: Stable. NECK: There is no jugular venous distention. Carotid upstroke is normal. There is no bruit. CHEST: Reveals good air entry bilaterally. HEART: Reveals first and second heart sounds. No gallop. No murmur. No rub. ABDOMEN: Soft, nontender. EXTREMITIES: Did not reveal any edema. Peripheral pulses are felt. LABORATORY DATA: Labs are as described above. EKG is as described above. ASSESSMENT: 1. Syncope, rule out cardiac causes. 2. Known coronary artery disease, status post prior angioplasty. PLAN: I will continue the patient on current medications. I will obtain a 2D echo to assess LV function and wall motion. His clinical presentation clearly seems related to seizure than syncope. JENNIFER / SANAM: [id number] /
[2021-12-21 13:30] LABS: Glucose,Whole Blood 122 mg/dL (70-110)
--- NOTE | 2021-12-21 13:30 | CT ---
EXAMINATION TYPE: CODE STROKE: CTA head neck DATE OF EXAM: 12/21/2021 HISTORY: Left arm weakness and recent right CEA COMPARISON: NONE CT DLP: 450 mGycm. Automated Exposure Control for Dose Reduction was Utilized. TECHNIQUE: CTA scan of the head and neck is performed without and with IV Contrast, patient injected with 65 ml mL of Isovue 370, axial images are obtained, coronal and sagittal reformatted images are reviewed. 3D reconstructed images are created on an independent workstation and reviewed. FINDINGS: Carotid/Vascular Structures: Mild to moderate peripheral plaque in the aortic arch. Moderate peripher al mixed plaque at origin of left subclavian artery causing stenosis approaching near 50% coronal vanessa ge 17. No significant plaque or stenosis in the common carotid arteries bilaterally. Asymmetric large r diameter right carotid bulb correlates with history of endarterectomy. No significant plaque or aixa nosis at carotid bulb level bilaterally. Patent external carotid arteries bilaterally without signifi cant stenosis. There is motion artifact degradation near the level of the jaw making evaluation subop timal. Remainder of the right internal carotid artery shows mild to moderate peripheral plaque distal ly without significant stenosis. Patent small caliber anterior communicating artery. No significant s tenosis or aneurysm in the anterior circulation. Codominant vertebral arteries are patent to basilar junction. There are hypoplastic bilateral posteri or communicating arteries. No significant focal stenosis or aneurysm in the posterior circulation. Other: Moderate multilevel spurring in the mid to lower cervical spine IMPRESSION: Slightly suboptimal study but no significant stenosis in common or internal carotid arter ies identified bilaterally. No significant stenosis or focal aneurysm at level of the [place] s. NASCET criteria was used in interpretation of this exam?
--- NOTE | 2021-12-21 13:33 | P.PN ---
Progress Note - Text Progress Note Date: 12/21/21 Psychiatry attempted to evaluate the patient at approximately 13:00. Currently the patient is unarousable. The patient received IM ativan 2 mg approximately 2 hours prior to this attempted assessment. As per nurse, the patient is agitated when up. His chart has been reviewed and is significant for polysubstance abuse. Psychiatry will re-attempt evaluation when patient is more arousable and appropriate. Jasiel Schneider MD
[2021-12-21] MEDS ORDERED: HALOPERIDOL LACTATE 5 MG/ML 1 ML VIAL IM PRN (13:34)
[2021-12-21] MEDS: levETIRAcetam IV 1,000 MG in SALINE 1 100ML.BAG IVPB SCH (14:29)
--- NOTE | 2021-12-21 15:22 | P.CNNES ---
History of Present Illness Consult date: 12/21/21 Requesting physician: Chevy Pat Reason for Consult: Seizure History of Present Illness: Patient is a 56-year-old male, who has recently undergone right CEA, came to the hospital yesterday at 7 PM because new onsets of seizures. Patient not able to provide any history. According to the EMS flow sheet when they arrived, found patient down unresponsive. He was on the ground outside his residence. Patient's mentioned that patient has been drinking since yesterday afternoon and was outside and then she found him passed out on the ground. Patient was found alert but combative and slurring his words. Patient's states patient has been drinking since yesterday afternoon and is super drunk. Patient finally stopped being combative and allowed EMS to place him in the stretcher. Patient's vitals at the scene was blood pressure 149/90 pulse rate 122, respiration 18 and saturation 99% and blood sugar 133. When patient arrived in the ER, he was able to provide appropriate history. He had reported to the ED physician that he recalls drinking a few beers earlier during the day and then picked up cigarette off the ground which he said tasted like "turpentine". Then he became dizzy and dropped to his knees. He remembers is waking up when he was in the ambulance. He mentioned that he was decreasing amount of nicotine and alcohol. He does read occasionally. He has been taking medications as prescribed. In the ER last night at 11:33 PM patient had a seizure as he was incontinent, confused and diaphoretic. He was moving all 4 extremities purposefully. His blood sugar was 66. He was given 1 ampule of D50. Patient at present is possible postictal versus sedated from multiple doses of benzodiazepine that he has received including 8 mg of Ativan, 5 mg of Valium, 2 mg of Versed and most recently he received 2 mg of Valium. Patient reportedly takes 4 tall beers per day. Patient's blood alcohol level was negative <10. Urine drug screen positive for opiates, amphetamines, methamphetamines and marijuana. CBC showed hemoglobin 10.7, hematocrit 37. Electrolytes are normal. Renal functions normal. Hemoglobin A1c 5.5. Hepatic panel is normal. TSH is elevated 5.22, free T4 1 0.28. Cholesterol is 233, LDL 123, HDL [address] head showed no acute process. On my review, there is a possible subacute hypodensity in the right frontal subcortical region. Rule out subacute stroke. EKG showed ectopic atrial rhythm. Possible left atrial enlargement. Low QRS voltage. Cardiology has been consulted. Patient is laying on the left side. He appears to have weakness of his left arm. Left arm drift. His security expert is less on the left. Patient not able to provide further history. Per nurse report, patient has been sweating a lot, talking to himself. Patient initially has presented on 12/01/2021 with recurrent TIAs with left arm and leg weakness, slurred speech lasting for a couple minutes. He had a third TIA on 12/06/2021 while he was in the hospital. Patient was found to have subtotal occlusion of the right ICA. Patient underwent right CEA on 12/07/2021. Review of Systems Family members were not available. Nurse not able to tell anymore information. ROS unobtainable: due to mental status Past Medical History Past Medical History: Asthma, Fibromyalgia, GI Bleed, Hypertension, Myocardial Infarction ([place]) Additional Past Medical History / Comment(s): fibromyalgia Last Myocardial Infarction Date:: 7-8 YRS AGO History of Any Multi-Drug Resistant Organisms: None Reported Past Surgical History: Heart Catheterization With Stent Additional Past Surgical History / Comment(s): tumor removal from neck Past Anesthesia/Blood Transfusion Reactions: No Reported Reaction Date of Last Stent Placement:: 12/01/2018 Past Psychological History: Depression Smoking Status: Current every day smoker Past Alcohol Use History: Heavy Past Drug Use History: Marijuana - Past Family History Sister(s) Family Medical History: Cancer Medications and Allergies Home Medications Medication Instructions Recorded Confirmed Type traZODone HCL [Desyrel] 100 mg PO HS 09/28/15 12/21/21 History DULoxetine HCL [Cymbalta] 60 mg PO BID 11/13/16 12/21/21 History Budesonide/Formoterol Fumarate 2 puff INHALATION RT-BID PRN 10/14/17 12/21/21 History [Symbicort 160-4.5 Mcg Inhaler] Nitroglycerin Sl Tabs [Nitrostat] 0.4 mg SUBLINGUAL Q5M PRN 10/14/17 12/21/21 History Albuterol Sulfate [Proair Hfa] 2 puff INHALATION RT-Q6H PRN 04/15/21 12/21/21 History Tiotropium 2.5 Mcg/Puff [Spiriva 2 puff INHALATION RT-DAILY PRN 04/15/21 12/21/21 History Respimat 2.5 Mcg] Pregabalin [Lyrica] 75 mg PO BID 12/01/21 12/21/21 History traMADol HCL 50 mg PO TID PRN 12/01/21 12/21/21 History Acetaminophen Tab [Tylenol] 650 mg PO Q4HR PRN tab 12/08/21 12/21/21 Rx Aspirin 162 mg PO DAILY 30 Days #60 tab 12/08/21 12/21/21 Rx Atorvastatin [Lipitor] 80 mg PO DAILY 30 Days #30 tab 12/08/21 12/21/21 Rx Clopidogrel [Plavix] 75 mg PO DAILY 30 Days #30 tab 12/08/21 12/21/21 Rx Famotidine [Pepcid] 20 mg PO BID 15 Days #30 tab 12/08/21 12/21/21 Rx HYDROcodone/APAP 5-325MG [[place] 1 each PO Q4HR PRN #9 tab 12/08/21 12/21/21 Rx 5-325] Nicotine 14Mg/24Hr Patch [Habitrol] 1 patch TRANSDERM DAILY #20 patch 12/08/21 12/21/21 Rx Thiamine [Vitamin B-1] 100 mg PO DAILY #30 tab 12/08/21 12/21/21 Rx Allergies Allergy/AdvReac Type Severity Reaction Status Date / Time No Known Allergies Allergy Verified 12/01/21 23:27 Physical Examination - Vital Signs Vital Signs: Vital Signs Pulse Pulse Resp BP Pulse Ox 12/21/21 14:53 71 18 126/88 96 12/21/21 10:43 70 20 128/85 99 12/21/21 06:33 88 18 131/90 96 12/21/21 05:02 78 18 119/80 98 12/21/21 02:01 97 18 136/86 99 12/21/21 00:20 98 16 139/84 100 12/20/21 19:34 78 12/20/21 19:04 101 H 20 154/83 100 Intake and Output 12/20/21 12/21/21 12/21/21 22:59 06:59 14:59 Other: Weight 63.503 kg Patient is a middle aged male, who is sedated due to receiving multiple doses of benzodiazepine, obtunded. Patient speaks with some slurring. Patient mumbles. Patient is very groggy, has received multiple doses of Ativan, Valium and Versed. Speech and language functions cannot be assessed. Attention, concentration and fund of knowledge is very limited On cranial nerve examination, pupils are equal, round and reacting to light, visual smith cannot be assessed. Extraocular muscles are intact with no nystagmus. Face is symmetric, patient did not protrude his tongue. Did not cooperate with examination of the lower cranial nerves. On muscle strength testing, patient has significant left pronator drift, and the left arm hits the bed. His security expert is 5 on the right, 4 left. Patient's strength of the lower extremities and movement appears equal. He droops down the lower activities equally bilaterally. Deep tendon reflexes are (right/left) biceps 2/2+, brachioradialis 2/2+, knees 3/3, plantar is withdrawal on the right, possible up on the left. Sensory, cerebellar functions and gait cannot be assessed. On general examination, there is no carotid bruit or murmur, S1-S2 audible. Chest is clear on consultation. Abdomen is soft nontender. No organomegaly, bowel sounds present. Peripheral pulses are present. No edema. Results - Laboratory Findings CBC and BMP: 12/22/21 07:07 12/22/21 07:07 Abnormal Lab Findings: Abnormal Labs 12/20/21 12/20/21 12/20/21 20:19 20:19 20:19 RBC 3.93 L Hgb 10.7 L Hct 35.8 L MCHC 29.9 L RDW 15.7 H Carbon Dioxide 14 L Glucose 151 H POC Glucose (mg/dL) TSH 5.220 H Urine Protein Urine Ketones Urine Mucus Urine Opiates Screen Ur Amphetamines Screen U Methamphetamines Scrn U Marijuana (THC) Screen 12/20/21 12/21/21 12/21/21 21:01 00:09 01:13 RBC Hgb Hct MCHC RDW Carbon Dioxide Glucose POC Glucose (mg/dL) 66 L 116 H TSH Urine Protein 1+ H Urine Ketones 1+ H Urine Mucus Rare H Urine Opiates Screen Detected H Ur Amphetamines Screen Detected H U Methamphetamines Scrn Detected H U Marijuana (THC) Screen Detected H 12/21/21 13:29 RBC Hgb Hct MCHC RDW Carbon Dioxide Glucose POC Glucose (mg/dL) 122 H TSH Urine Protein Urine Ketones Urine Mucus Urine Opiates Screen Ur Amphetamines Screen U Methamphetamines Scrn U Marijuana (THC) Screen Assessment and Plan Assessment: * New onset seizure, possible alcohol withdrawal. * Patient has left-sided weakness noticed. Rule out post ictal Garo's paralysis versus acute CVA. * Alcoholism, but blood alcohol level shows undetectable EtOH. * Status post right CEA 12/07/2021 * Polysubstance abuse. Urine positive for opiates, amphetamines, methamphetamines and marijuana. * Hyperlipidemia * Tobacco use Plan: * Stat CTA of head and neck to rule out right ICA occlusion. * EEG to evaluate for epileptiform activity. * Patient received a loading dose of Keppra 1500 mg in the ER. Patient will be maintained on Keppra 1000 mg twice a day. * MRI brain rule out CVA. * Resume aspirin 162 mg, Plavix 75 mg and Lipitor 80 mg daily. * Thiamine, folate, watch for DTs. * Hemoglobin A1c 5.5 * Lipid panel with cholesterol 233, LDL 123, HDL 49 and triglycerides 300. Continue high-dose Lipitor. * Recommended abstinence from alcohol and substance use. Tobacco cessation. * Neurology will follow. Thank you for the consult. Time with Patient: Greater than 30
[2021-12-21] MEDS ORDERED: LORazepam 1 MG/0.5 ML VIAL IV PRN (21:00)
[2021-12-21] MEDS: HEPARIN SODIUM,PORCINE/PF 5,000 UNIT/0.5 ML SYRINGE SQ SCH (21:47)
[2021-12-21] MEDS: LORazepam 1 MG/0.5 ML VIAL IV PRN (21:55)
[2021-12-22] MEDS: levETIRAcetam IV 1,000 MG in SALINE 1 100ML.BAG IVPB SCH ×2 (01:24→12:51)
[2021-12-22] MEDS: LORazepam 1 MG/0.5 ML VIAL IV PRN ×3 (02:12→15:46)
[2021-12-22] MEDS: SODIUM CHLORIDE 0.9% 1,000 ML IV SCH ×3 (05:39→21:10)
[2021-12-22 07:58] LABS: Basophils # (A) 0.1 k/uL (0-0.2); Basophils % (A) 1 %; Eosinophils # (A) 0.1 k/uL (0-0.7); Eosinophils % (A) 1 %; HCT 35.3 % (39.0-53.0); HGB 10.4 gm/dL (13.0-17.5); Hypochromasia Marked; Lymphocytes # (A) 1.3 k/uL (1.0-4.8); Lymphocytes % (A) 19 %; MCH 27.3 pg (25.0-35.0); MCHC 29.6 g/dL (31.0-37.0); MCV 92.3 fL (80.0-100.0); Mean Platelet Volume 8.7; Monocytes # (A) 0.6 k/uL (0-1.0); Monocytes % (A) 9 %; Neutrophils # (A) 4.6 k/uL (1.3-7.7); Neutrophils % (A) 68 %; Platelet Count 264 k/uL (150-450); RBC 3.82 m/uL (4.30-5.90); RDW 15.7 % (11.5-15.5); WBC 6.8 k/uL (3.8-10.6)
[2021-12-22 08:21] LABS: ALT 15 U/L (4-49); African American GFR (CKD) >90 (>60 ml/min/1.73 sqM); Albumin 3.9 g/dL (3.5-5.0); Anion Gap 9 mmol/L; Bilirubin, Delta 0.3 mg/dL (0.0-0.2); Bilirubin,Unconjugated 0.4 mg/dL (0.0-1.1); Blood Urea Nitrogen 8 mg/dL (9-20); Calcium 8.8 mg/dL (8.4-10.2); Carbon Dioxide 19 mmol/L (22-30); Chloride 109 mmol/L (98-107); Glucose 82 mg/dL (74-99); Non-African American GFR(CKD) >90 (>60 ml/min/1.73 sqM); Sodium 137 mmol/L (137-145); Total Bilirubin 0.7 mg/dL (0.2-1.3); Total Protein 6.3 g/dL (6.3-8.2)
[2021-12-22 08:33] LABS: AST 50 U/L (17-59); Alkaline Phosphatase 76 U/L (38-126); Potassium 3.8 mmol/L (3.5-5.1)
[2021-12-22] MEDS: FAMOTIDINE 20 MG TAB PO SCH ×2 (08:54→20:40)
[2021-12-22] MEDS: MULTIVITAMINS, THERA 1 EACH TAB PO SCH (08:54)
[2021-12-22] MEDS: THIAMINE 100 MG/ML 2 ML VIAL IVP SCH ×2 (08:54→20:39)
[2021-12-22] MEDS: HEPARIN SODIUM,PORCINE/PF 5,000 UNIT/0.5 ML SYRINGE SQ SCH ×2 (08:55→20:40)
--- NOTE | 2021-12-22 12:21 | P.PN ---
Subjective Progress Note Date: 12/22/21 HISTORY OF PRESENT ILLNESS: This is a 56-year-old male with a history of coronary artery disease, hyperlipidemia, COPD, and alcohol abuse. Patient is admitted to the hospital secondary to possible seizure. Patient remains somewhat lethargic. He has removed his gown and is laying naked in bed. No complaints of chest pain or shortness of breath. Echo is pending. Vital signs are stable. PHYSICAL EXAM: VITAL SIGNS: Reviewed. GENERAL: Well-developed in no acute distress. NECK: Supple. No JVD or thyromegaly LUNGS: Respirations even and unlabored. Lungs essentially clear to auscultation bilaterally. HEART: Regular rate and rhythm. S1 and S2 heard. EXTREMITIES: Normal range of motion. No clubbing or cyanosis. Peripheral pulses intact. No lower extremity edema ASSESSMENT: Seizure versus syncope, syncope less likely Coronary artery disease Hyperlipidemia COPD Alcohol abuse Toxicology screen positive for marijuana, methamphetamines, amphetamines, and opiates PLAN: Continue telemetry monitoring 2-D echo ordered. Await results Neurology following. MRI and EEG ordered Further recommendations pending patient's course Nurse practitioner note has been reviewed by physician. Signing provider agrees with the documented findings, assessment, and plan of care. Objective - Vital Signs Vital signs: Vital Signs Temp 97.8 F 12/22/21 08:00 Pulse 55 L 12/22/21 08:00 Resp 18 12/22/21 08:00 BP 118/66 12/22/21 08:00 Pulse Ox 98 12/22/21 08:00 FiO2 Intake & Output 12/21/21 12/22/21 12/22/21 18:59 06:59 18:59 Output Total 0 Balance 0 Weight 63.503 kg Output: Urine 0 Other: Voiding Method Urinal # Voids 1 - Labs CBC & Chem 7: 12/22/21 07:07 12/22/21 07:07 Labs: Abnormal Lab Results - Last 24 Hours (Table) 12/21/21 12/22/21 12/22/21 Range/Units 13:29 07:07 07:07 RBC 3.82 L (4.30-5.90) m/uL Hgb 10.4 L (13.0-17.5) gm/dL Hct 35.3 L (39.0-53.0) % MCHC 29.6 L (31.0-37.0) g/dL RDW 15.7 H (11.5-15.5) % Chloride 109 H (98-107) mmol/L Carbon Dioxide 19 L (22-30) mmol/L BUN 8 L (9-20) mg/dL POC Glucose (mg/dL) 122 H (70-110) mg/dL Delta Bilirubin 0.3 H (0.0-0.2) mg/dL
[2021-12-22 12:56] VITALS: BMI 23.3
[2021-12-22] MEDS ORDERED: ASPIRIN 81 MG PO STA (15:05)
[2021-12-22] MEDS: CLOPIDOGREL 75 MG TAB PO SCH (16:29)
--- NOTE | 2021-12-22 18:11 | P.PN ---
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 Moving all four extremities purposefully. Seizure precautions instituted. Patient given 1 mg of Ativan and a repeat does of 2mg In the emergency room patient received volume scheduled 5 mg every 4 hours, Ativan and Versed Currently patient is very sleepy, hard to make him up, however he withdraws for painful tactile stimuli Patient is hemodynamically stable. Afebrile. Labs reviewed. He has anemia with hemoglobin 10.7. INR is normal 0.9. D-dimer is -0.51. BMP and liver enzymes are unremarkable. Glucose was low at 66, currently his glucose is 140. Liver enzymes and troponin elevated. EKG showing ectopic atrial rhythm with low voltage. Chest x-ray: No acute process CT of the brain: No acute intracranial process In the emergency room he received normal saline, Ativan, Keppra Patient currently kept on Keppra 1000 mg twice daily, Valium 5 mg every 4 hours. With neurology and psychiatry team consulted 12/22/2021 Patient is awake but covered consult with bedsheets. The abscess questions appropriately, is oriented to time, place and person. He follows, commands appropriately. He looks tired. However he denies any reports of dizziness or syncope. Probably he has some symptoms of alcohol withdrawal like shakiness and anxiety. He still monitored in telemetry. Hemodynamically and labs are stable CIWA score is 11 but improving. MRI of the brain and EEG are ordered. Currently patient is on Plavix, Objective - Vital Signs Vital signs: Vital Signs Temp 97.8 F 12/22/21 08:00 Pulse 55 L 12/22/21 08:00 Resp 18 12/22/21 08:00 BP 118/66 12/22/21 08:00 Pulse Ox 98 12/22/21 08:00 FiO2 Intake & Output 12/21/21 12/22/21 12/22/21 18:59 06:59 18:59 Output Total 0 Balance 0 Weight 63.503 kg Output: Urine 0 Other: Voiding Method Urinal # Voids 1 - Exam -GENERAL: The patient is awake lethargic, covering himself with bedsheets looks withdrawn. A A0X3, not in any acute distress. Well developed, well nourished. HEENT: Pupils are round and equally reacting to light. EOMI. No scleral icterus. No conjunctival pallor. Normocephalic, atraumatic. No pharyngeal erythema. No thyromegaly. CARDIOVASCULAR: S1 and S2 present. No murmurs, rubs, or gallops. PULMONARY: Chest is clear to auscultation, no wheezing or crackles. ABDOMEN: Soft, nontender, nondistended, normoactive bowel sounds. No palpable organomegaly. MUSCULOSKELETAL: No joint swelling or deformity. EXTREMITIES: No cyanosis, clubbing, or pedal edema. NEUROLOGICAL: Gross neurological examination did not reveal any focal deficits. SKIN: No rashes. no petechiae. - Labs CBC & Chem 7: 12/22/21 07:07 12/22/21 07:07 Labs: Abnormal Lab Results - Last 24 Hours (Table) 12/21/21 12/22/21 12/22/21 Range/Units 13:29 07:07 07:07 RBC 3.82 L (4.30-5.90) m/uL Hgb 10.4 L (13.0-17.5) gm/dL Hct 35.3 L (39.0-53.0) % MCHC 29.6 L (31.0-37.0) g/dL RDW 15.7 H (11.5-15.5) % Chloride 109 H (98-107) mmol/L Carbon Dioxide 19 L (22-30) mmol/L BUN 8 L (9-20) mg/dL POC Glucose (mg/dL) 122 H (70-110) mg/dL Delta Bilirubin 0.3 H (0.0-0.2) mg/dL Assessment and Plan Assessment: Syncope Alcohol withdrawal with possible alcohol withdrawal seizure Alcohol abuse hypoglycemia, present on admission Seizure witnessed in the emergency room Toxic/metabolic encephalopathy, partly due to benzodiazepine medication COPD, not an active issue History of coronary artery disease status post stenting Hypertension History of coronary artery disease status post stenting Nicotine dependence History of fibromyalgia History of GI bleed History of neck tumor status post resection Plan: This is a pleasant 56 years old male who presents with alcohol withdrawal and seizure Patient is currently on Keppra and the neurologist been consulted . The patient will need EEG Continue with CIWA protocol Continue with thiamin Consult cardiology service for syncope and ectopic atrial rhythm Psychiatry consult Nutrition consult . Patient currently on D5 half-normal saline for hypoglycemia Check vitamin B12, TSH and hemoglobin A1c Labs and medication were reviewed.. Continue same treatment. Continue with symptomatic treatment. Resume home medication. Monitor lytes and vitals. DVT and GI prophylaxis. Further recommendations as per clinical course of the patient DVT prophylaxis: Subcutaneous heparin GI Prophylaxis: Pepcid PT/OT: Pending Prognosis is guarded
--- NOTE | 2021-12-22 19:05 | MR ---
EXAMINATION TYPE: MR brain wo con DATE OF EXAM: 12/22/2021 6:26 PM COMPARISON: 12/04/2021.. CLINICAL INDICATION:Male, 56 years old with history of Left sided weakness, CVA vs post-ictal todds; TECHNIQUE: Multi planar, multi sequence imaging was performed through the brain including: T1, T2, In version recovery, Diffusion weighted imaging, and gradient echo imaging. No gadolinium was given. FINDINGS: Interval increase in right cerebral hemisphere /right MCA territory white matter changes with increas ed FLAIR signal compared to 12/04/2021. Overall this area shows T2 center on diffusion-weighted imagin g. There is no evidence for restricted diffusion within these white matter changes identified on FLAI R. The ventricular system, and cisterns appear unremarkable. The bone marrow signal is within normal limits. The paranasal sinuses mild paranasal sinus mucosal thickening present. IMPRESSION: Interval increase in white matter changes involving the right MCA territory when compared 12/04/2021 w ithout evidence restricted diffusion to suggest acute/subacute CVA. Findings could represent sequela of ischemia with reperfusion. Attention on short-term follow up imaging.
--- NOTE | 2021-12-22 19:52 | CA ---
Transthoracic Echo Report Name: Isrrael Gutierrez Age: 56 Gender: M : 1965 Exam Date: 12/21/2021 10:17 Exam Location: [facility] Ht (in): 65 Wt (lb): 140 Ordering Physician: Ronen Ayala MD ([id number]) Attending/Referring Phys: Lucy WILSON [employer] Stephanie Mcgee RDCS Procedure CPT: Indications: Syncope Cardiac Hx: Technical Quality: Fair Contrast 1: Total Dose (mL): Contrast 2: Total Dose (mL): MEASUREMENTS (Male / Female) Normal Values 2D ECHO LV Diastolic Diameter PLAX 3.9 cm 4.2 - 5.9 / 3.9 - 5.3 cm LV Systolic Diameter PLAX 2.8 cm IVS Diastolic Thickness 1.2 cm 0.6 - 1.0 / 0.6 - 0.9 cm LVPW Diastolic Thickness 1.4 cm 0.6 - 1.0 / 0.6 - 0.9 cm LV Relative Wall Thickness 0.7 FINDINGS Left Ventricle Limited study, Mildly increased left ventricular wall thickness. Normal left ventricular systolic function with no obvious regional wall motion abnormalities. Left ventricular ejection fraction is estimated at 55 percent. Right Ventricle Right Atrium Left Atrium Mitral Valve Aortic Valve Tricuspid Valve Pulmonic Valve Pericardium No pericardial effusion. Aorta CONCLUSIONS Normal LV size preserved systolic function no pericardial effusion Previewed by: Dr. Mireya Fuentes MD (Electronically Signed) Final Date: 22 December 2021 19:51
[2021-12-22] MEDS: DEXTROSE 5%-0.45% NACL 1,000 ML IV SCH ×2 (20:41→21:10)
[2021-12-22] MEDS ORDERED: ATORVASTATIN 80 MG TAB PO SCH (21:00)
[2021-12-23] MEDS: levETIRAcetam IV 1,000 MG in SALINE 1 100ML.BAG IVPB SCH ×2 (00:13→11:42)
[2021-12-23] MEDS ORDERED: ASPIRIN 81 MG PO SCH (09:00)
[2021-12-23 09:22] LABS: African American GFR (CKD) >90 (>60 ml/min/1.73 sqM); Anion Gap 10 mmol/L; Blood Urea Nitrogen 8 mg/dL (9-20); Calcium 8.7 mg/dL (8.4-10.2); Carbon Dioxide 20 mmol/L (22-30); Chloride 108 mmol/L (98-107); Glucose 99 mg/dL (74-99); Magnesium 1.7 mg/dL (1.6-2.3); Non-African American GFR(CKD) >90 (>60 ml/min/1.73 sqM); Potassium 3.6 mmol/L (3.5-5.1); Sodium 138 mmol/L (137-145)
[2021-12-23] MEDS: THIAMINE 100 MG/ML 2 ML VIAL IVP SCH (10:32)
[2021-12-23] MEDS: MULTIVITAMINS, THERA 1 EACH TAB PO SCH (10:32)
[2021-12-23] MEDS: CLOPIDOGREL 75 MG TAB PO SCH (10:32)
[2021-12-23] MEDS: FAMOTIDINE 20 MG TAB PO SCH (10:32)
[2021-12-23] MEDS: HEPARIN SODIUM,PORCINE/PF 5,000 UNIT/0.5 ML SYRINGE SQ SCH (10:32)
[2021-12-23 10:39] VITALS: RESP 17
[2021-12-23] MEDS: SODIUM CHLORIDE 0.9% 1,000 ML IV SCH ×2 (10:49→10:50)
--- NOTE | 2021-12-23 10:54 | P.GSCN ---
History of Present Illness Consult date: 12/23/21 History of present illness: Patient is a 56-year-old male he has a past history including depression, COPD, coronary artery disease, hypertension and alcohol abuse. Upon dialogue with the patient, he is uncertain why he is actually here. Per the records he had suspected syncope, reported seizure incontinence confusion and diaphoresis. 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 He states he has been taking all medications he is supposed to at home including Plavix. He states he has not been taking his aspirin because he does not have any at home Past Medical History Past Medical History: Asthma, Fibromyalgia, GI Bleed, Hypertension, Myocardial Infarction ([place]) Additional Past Medical History / Comment(s): fibromyalgia Last Myocardial Infarction Date:: 7-8 YRS AGO History of Any Multi-Drug Resistant Organisms: None Reported Past Surgical History: Heart Catheterization With Stent Additional Past Surgical History / Comment(s): tumor removal from neck Past Anesthesia/Blood Transfusion Reactions: No Reported Reaction Date of Last Stent Placement:: 12/01/2018 Past Psychological History: Depression Smoking Status: Current every day smoker Past Alcohol Use History: Heavy Past Drug Use History: Marijuana - Past Family History Sister(s) Family Medical History: Cancer Medications and Allergies Home Medications Medication Instructions Recorded Confirmed Type traZODone HCL [Desyrel] 100 mg PO HS 09/28/15 12/21/21 History DULoxetine HCL [Cymbalta] 60 mg PO BID 11/13/16 12/21/21 History Budesonide/Formoterol Fumarate 2 puff INHALATION RT-BID PRN 10/14/17 12/21/21 History [Symbicort 160-4.5 Mcg Inhaler] Nitroglycerin Sl Tabs [Nitrostat] 0.4 mg SUBLINGUAL Q5M PRN 10/14/17 12/21/21 History Albuterol Sulfate [Proair Hfa] 2 puff INHALATION RT-Q6H PRN 04/15/21 12/21/21 History Tiotropium 2.5 Mcg/Puff [Spiriva 2 puff INHALATION RT-DAILY PRN 04/15/21 12/21/21 History Respimat 2.5 Mcg] Pregabalin [Lyrica] 75 mg PO BID 12/01/21 12/21/21 History traMADol HCL 50 mg PO TID PRN 12/01/21 12/21/21 History Acetaminophen Tab [Tylenol] 650 mg PO Q4HR PRN tab 12/08/21 12/21/21 Rx Aspirin 162 mg PO DAILY 30 Days #60 tab 12/08/21 12/21/21 Rx Atorvastatin [Lipitor] 80 mg PO DAILY 30 Days #30 tab 12/08/21 12/21/21 Rx Clopidogrel [Plavix] 75 mg PO DAILY 30 Days #30 tab 12/08/21 12/21/21 Rx Famotidine [Pepcid] 20 mg PO BID 15 Days #30 tab 12/08/21 12/21/21 Rx HYDROcodone/APAP 5-325MG [Onward 1 each PO Q4HR PRN #9 tab 12/08/21 12/21/21 Rx 5-325] Nicotine 14Mg/24Hr Patch [Habitrol] 1 patch TRANSDERM DAILY #20 patch 12/08/21 12/21/21 Rx Thiamine [Vitamin B-1] 100 mg PO DAILY #30 tab 12/08/21 12/21/21 Rx Allergies Allergy/AdvReac Type Severity Reaction Status Date / Time No Known Allergies Allergy Verified 12/01/21 23:27 Surgical - Exam Vital Signs Pulse Resp BP Pulse Ox 101 H 20 154/83 100 12/20/21 19:04 12/20/21 19:04 12/20/21 19:04 12/20/21 19:04 Gen. a pleasant male in no acute distress. HEENT is normocephalic. Atraumatic. Right neck incision is clean and dry, healing well. Heart appears regular at this time. Lungs are clear. Cranial nerves II through XII grossly intact at this time. Results Imaging is reviewed. Computed tomography scan shows widely patent right carotid endarterectomy site. MRI is reviewed - Labs 12/22/21 07:07 12/23/21 08:36 Abnormal Lab Results - Last 24 Hours (Table) 12/23/21 Range/Units 08:36 Chloride 108 H (98-107) mmol/L Carbon Dioxide 20 L (22-30) mmol/L BUN 8 L (9-20) mg/dL Diabetes panel 12/23/21 Range/Units 08:36 Sodium 138 (137-145) mmol/L Potassium 3.6 (3.5-5.1) mmol/L Chloride 108 H (98-107) mmol/L Carbon Dioxide 20 L (22-30) mmol/L BUN 8 L (9-20) mg/dL Creatinine 0.79 (0.66-1.25) mg/dL Glucose 99 (74-99) mg/dL Calcium 8.7 (8.4-10.2) mg/dL Calcium panel 12/23/21 Range/Units 08:36 Calcium 8.7 (8.4-10.2) mg/dL Pituitary panel 12/23/21 Range/Units 08:36 Sodium 138 (137-145) mmol/L Potassium 3.6 (3.5-5.1) mmol/L Chloride 108 H (98-107) mmol/L Carbon Dioxide 20 L (22-30) mmol/L BUN 8 L (9-20) mg/dL Creatinine 0.79 (0.66-1.25) mg/dL Glucose 99 (74-99) mg/dL Calcium 8.7 (8.4-10.2) mg/dL Adrenal panel 12/23/21 Range/Units 08:36 Sodium 138 (137-145) mmol/L Potassium 3.6 (3.5-5.1) mmol/L Chloride 108 H (98-107) mmol/L Carbon Dioxide 20 L (22-30) mmol/L BUN 8 L (9-20) mg/dL Creatinine 0.79 (0.66-1.25) mg/dL Glucose 99 (74-99) mg/dL Calcium 8.7 (8.4-10.2) mg/dL Assessment and Plan Assessment: Recent right carotid endarterectomy Alcohol withdrawal Reported seizure Plan: All apparent imaging shows appropriately patent carotid endarterectomy site. Doubt any embolic or ischemic disease from this. Would likely believe more of a reperfusion type syndrome versus a Garo's paralysis picture following a recent CVA. Continue aspirin and Plavix at this time. No vascular interventions planned.
--- NOTE | 2021-12-23 10:58 | P.PN ---
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 Moving all four extremities purposefully. Seizure precautions instituted. Patient given 1 mg of Ativan and a repeat does of 2mg In the emergency room patient received volume scheduled 5 mg every 4 hours, Ativan and Versed Currently patient is very sleepy, hard to make him up, however he withdraws for painful tactile stimuli Patient is hemodynamically stable. Afebrile. Labs reviewed. He has anemia with hemoglobin 10.7. INR is normal 0.9. D-dimer is -0.51. BMP and liver enzymes are unremarkable. Glucose was low at 66, currently his glucose is 140. Liver enzymes and troponin elevated. EKG showing ectopic atrial rhythm with low voltage. Chest x-ray: No acute process CT of the brain: No acute intracranial process In the emergency room he received normal saline, Ativan, Keppra Patient currently kept on Keppra 1000 mg twice daily, Valium 5 mg every 4 hours. With neurology and psychiatry team consulted 12/22/2021 Patient is awake but covered consult with bedsheets. The abscess questions appropriately, is oriented to time, place and person. He follows, commands appropriately. He looks tired. However he denies any reports of dizziness or syncope. Probably he has some symptoms of alcohol withdrawal like shakiness and anxiety. He still monitored in telemetry. Hemodynamically and labs are stable CIWA score is 11 but improving. MRI of the brain and EEG are ordered. Currently patient is on Plavix, 12/23/2021 Patient is similar to yesterday awake and alert but he is withdrawn, he follows commands but keeps himself covered in that she eats. He denies any specific complaint to me. No more evidence of seizure-like activities and his CIWA score is 0 this morning, patient so far does not shows symptoms of acute withdrawal. However he is undergoing workup for possible stroke, MRI of the brain showing increase in the white matter with changes in the right MCA territory, no evidence of CVA but ischemia needs to be ruled out. Vision placed on Plavix and aspirin 160 mg especially with his some evidence of left-sided hemiparesis, evaluated by neurologist. I discussed the case with vascular surgery and they recommended no surgical intervention for now Is also on Keppra 1000 twice a day. Patient looks withdrawn although she was score 0. Psychiatric did not see him 2 days ago because was sleepy. We will ask for psych follow-up today. Teacher Citizenship recommended to continue with telemetry monitoring Objective - Vital Signs Vital signs: Vital Signs Temp 98.0 F 12/23/21 04:00 Pulse 60 12/23/21 04:00 Resp 18 12/23/21 04:00 BP 108/68 12/23/21 04:00 Pulse Ox 99 12/23/21 04:00 FiO2 Intake & Output 12/22/21 12/23/21 12/23/21 18:59 06:59 18:59 Weight 63.503 kg Other: Voiding Method Toilet # Voids 1 1 - Exam -GENERAL: The patient is awake lethargic, covering himself with bedsheets looks withdrawn. A A0X3, not in any acute distress. Well developed, well nourished. HEENT: Pupils are round and equally reacting to light. EOMI. No scleral icterus. No conjunctival pallor. Normocephalic, atraumatic. No pharyngeal erythema. No thyromegaly. CARDIOVASCULAR: S1 and S2 present. No murmurs, rubs, or gallops. PULMONARY: Chest is clear to auscultation, no wheezing or crackles. ABDOMEN: Soft, nontender, nondistended, normoactive bowel sounds. No palpable organomegaly. MUSCULOSKELETAL: No joint swelling or deformity. EXTREMITIES: No cyanosis, clubbing, or pedal edema. NEUROLOGICAL: Gross neurological examination did not reveal any focal deficits. SKIN: No rashes. no petechiae. - Labs CBC & Chem 7: 12/22/21 07:07 12/23/21 08:36 Labs: Abnormal Lab Results - Last 24 Hours (Table) 12/23/21 Range/Units 08:36 Chloride 108 H (98-107) mmol/L Carbon Dioxide 20 L (22-30) mmol/L BUN 8 L (9-20) mg/dL Assessment and Plan Assessment: Syncope Alcohol withdrawal with possible alcohol withdrawal seizure abnormal MRI of the brain with some white matter changes, need to rule out ischemia although there is no evidence of CVA. Image Alcohol abuse hypoglycemia, present on admission Seizure witnessed in the emergency room Toxic/metabolic encephalopathy, partly due to benzodiazepine medication COPD, not an active issue History of coronary artery disease status post stenting Hypertension History of coronary artery disease status post stenting Nicotine dependence History of fibromyalgia History of GI bleed History of neck tumor status post resection Plan: This is a pleasant 56 years old male who presents with alcohol withdrawal and seizure Patient is currently on Keppra and the neurologist been consulted . The patient will need EEG Continue with aspirin and Plavix per neurologist He is on CIWA and thiamine. Also he is on D5 half-normal saline at 75 mL/h We'll ask for psych follow-up Cardiology and neurology services on the case. Labs and medication were reviewed.. Continue same treatment. Continue with symptomatic treatment. Resume home medication. Monitor lytes and vitals. DVT and GI prophylaxis. Further recommendations as per clinical course of the patient DVT prophylaxis: Subcutaneous heparin GI Prophylaxis: Pepcid PT/OT: Pending Prognosis is guarded
--- NOTE | 2021-12-23 11:00 | P.PN ---
Subjective Progress Note Date: 12/22/21 Patient was seen for a follow-up. No further seizures reported by nurse. Patient states that he is smoking half pack per day. He admits to drinking 3 tall years per day. Also smokes weed every day. Patient states that he has been compliant with his medications otherwise. Objective - Vital Signs Vital signs: Vital Signs Temp 97.8 F 12/22/21 08:00 Pulse 72 12/22/21 12:00 Resp 18 12/22/21 12:00 BP 122/81 12/22/21 12:00 Pulse Ox 100 12/22/21 12:00 FiO2 Intake & Output 12/21/21 12/22/21 12/22/21 18:59 06:59 18:59 Output Total 0 Balance 0 Weight 63.503 kg 63.503 kg Output: Urine 0 Other: Voiding Method Urinal # Voids 1 1 - Exam Patient is alert and awake. Patient is much more calm. Patient appears somewhat disinhibited, frequently exposes himself despite covering with sheets. His speech appears mildly dysarthric and language functions are normal. Cranial nerves are normal. On muscle strength testing, patient has obvious left pronator drift. The strength is normal in the deltoids, biceps and aerospace project manager. Patient has inconsistent response to the aerospace project manager, at times appears slightly weaker on the left. Patient moves slowly Robi's equally. No obvious ataxia. - Labs CBC & Chem 7: 12/22/21 07:07 12/23/21 08:36 Labs: Abnormal Lab Results - Last 24 Hours (Table) 12/22/21 12/22/21 Range/Units 07:07 07:07 RBC 3.82 L (4.30-5.90) m/uL Hgb 10.4 L (13.0-17.5) gm/dL Hct 35.3 L (39.0-53.0) % MCHC 29.6 L (31.0-37.0) g/dL RDW 15.7 H (11.5-15.5) % Chloride 109 H (98-107) mmol/L Carbon Dioxide 19 L (22-30) mmol/L BUN 8 L (9-20) mg/dL Delta Bilirubin 0.3 H (0.0-0.2) mg/dL Assessment and Plan Assessment: * New onset seizure, possible alcohol withdrawal. * Patient has left-sided weakness noticed. Rule out post ictal Garo's paralysis versus acute CVA. * Alcoholism, but blood alcohol level shows undetectable EtOH. * Status post right CEA 12/07/2021 * Polysubstance abuse. Urine positive for opiates, amphetamines, methamphetamines and marijuana. * Hyperlipidemia * Tobacco use Plan: * CTA of head and neck reveals slightly suboptimal study, but no significant stenosis in the common or internal carotid arteries identified bilaterally. No significant stenosis or focal aneurysm at the level of [place]. * EEG still pending to evaluate for epileptiform activity. Per mechanical assembly technician, patient was not cooperating. * Patient received a loading dose of Keppra 1500 mg in the ER. Patient will be maintained on Keppra 1000 mg twice a day. * Await MRI brain rule out CVA. * Resume aspirin 162 mg, Plavix 75 mg and Lipitor 80 mg daily. * Thiamine, folate, watch for DTs. * Hemoglobin A1c 5.5 * Lipid panel with cholesterol 233, LDL 123, HDL 49 and triglycerides 300. Continue high-dose Lipitor. * Recommended abstinence from alcohol and substance use. Tobacco cessation. Addendum: MRI of the brain without contrast revealed interval increase in white matter changes involving the right MCA territory when compared to 12/04/2021 without evidence of restricted diffusion to suggest acute set subacute CVA. Findings could represent sequela of ischemia with reperfusion. Attention on short-term f ollow-up imaging. On my personal review, agree, there is no restricted diffusion on the DWI or abnormal signal on the ADC to suggest acute ischemia. There is significant abnormal signal on the FLAIR involving the right caudate, right external capsule and watershed territory between the right ZENY/MCA. Uncertain if related to hypoperfusion at some point. We will have vascular surgery look at the CTA and MRI as well.
[2021-12-23 11:49] VITALS: BP 133/77; TEMP 98.9
--- NOTE | 2021-12-23 12:01 | P.PN ---
Subjective Progress Note Date: 12/23/21 Patient was seen for a follow-up. No further seizures reported by nurse. Patient is slightly somnolent. He is much more alert and awake otherwise. Patient told me that he does not smoke Meth. One of his Kali, who smokes ICE, was smoking a cigarette laced with ICE. His Kali dropped that cigarette, and patient felt that it was his own cigarettes. He took a couple puffs of this cigarette that was actually his Kali cigarette. Patient then does not remember what happened and he had a seizure. Patient states that he is smoking half pack per day. He admits to drinking 3 tall beers per day. Also smokes weed every day. Patient states that he has been compliant with his medications otherwise. Objective - Vital Signs Vital signs: Vital Signs Temp 98.9 F 12/23/21 11:41 Pulse 67 12/23/21 11:41 Resp 17 12/23/21 11:41 BP 133/77 12/23/21 11:41 Pulse Ox 99 12/23/21 11:41 FiO2 Intake & Output 12/22/21 12/23/21 12/23/21 18:59 06:59 18:59 Output Total 275 Balance -275 Weight 63.503 kg Output: Urine 275 Other: Voiding Method Toilet Toilet # Voids 1 1 - Exam Patient is a middle aged male, in no acute distress. Patient is slightly somnolent, but then was alert awake oriented to time place and person. Speech and language functions are normal. Patient can name and repeat very well. No aphasia or dysarthria. Attention, concentration and fund of knowledge is adequate. On cranial nerve examination, pupils are equal, round and reacting to light, visual smith are full on confrontation, with no neglect on double simultaneous stimulation. Extraocular muscles are intact with slight nystagmus noted. Face is symmetric, tongue protrudes to the midline. Palatal elevation and sensation normal, hearing and shoulder shrug normal, facial sensation normal. On muscle strength testing, there is left pronator drift. The strength is normal in the right arm and right leg. On the left side, deltoid is 5-, biceps 5, triceps 5, hand tool filer 4+5-. Patient's strength is normal in the left lower limb. Deep tendon reflexes are symmetric 2+ to 3 in the upper limbs, 2+ in the lower limbs and plantars are downgoing bilaterally. Sensory to touch is equal with no neglect on double simultaneous stimulation. Cerebellar function showed mild ataxia for [id number] testing on the left. No ataxia for [id number] testing on either side. Tone and bulk of muscles normal. Gait deferred.. On general examination, there is no carotid bruit or murmur, S1-S2 audible. Chest is clear on consultation. Abdomen is soft nontender. No organomegaly, bowel sounds present. Peripheral pulses are present. No edema. - Labs CBC & Chem 7: 12/22/21 07:07 12/23/21 08:36 Labs: Abnormal Lab Results - Last 24 Hours (Table) 12/23/21 Range/Units 08:36 Chloride 108 H (98-107) mmol/L Carbon Dioxide 20 L (22-30) mmol/L BUN 8 L (9-20) mg/dL Assessment and Plan Assessment: * New onset seizure, probable due to smoking cigarettes list with ICE (per patient, extended release smoked his buddies Megan who does ICE) versus possible alcohol withdrawal. * Patient has left-sided weakness noticed. Rule out post ictal Garo's paralysis versus acute CVA. MRI showed abnormal signal on the right but no evidence of ischemia. Possible post ictal Garo's versus reperfusion abnormality. * Alcoholism, but blood alcohol level shows undetectable EtOH. * Status post right CEA 12/07/2021 * Polysubstance abuse. Urine positive for opiates, amphetamines, methamphetamines and marijuana. * Hyperlipidemia * Tobacco use Plan: * MRI of the brain without contrast revealed interval increase in white matter changes involving the right MCA territory when compared to 12/04/2021 without evidence of restricted diffusion to suggest acute set subacute CVA. Findings could represent sequela of ischemia with reperfusion. Attention on short-term follow-up imaging.On my personal review, agree, there is no restricted diffusion on the DWI or abnormal signal on the ADC to suggest acute ischemia. There is significant abnormal signal on the FLAIR involving the right caudate, right external capsule and watershed territory between the right ZENY/MCA. Uncertain if related to hypoperfusion at some point. * CTA of head and neck reveals slightly suboptimal study, but no significant aixa nosis in the common or internal carotid arteries identified bilaterally. No significant stenosis or focal aneurysm at the level of [place]. * Appreciate vascular surgery input. * EEG still pending to evaluate for epileptiform activity. Patient is fully cooperative today. Need to have it done before patient can go home. * Patient received a loading dose of Keppra 1500 mg in the ER. Patient is very somnolent. We will decrease Keppra to 750 mg twice a day. * Resume aspirin 162 mg, Plavix 75 mg and Lipitor 80 mg daily. * Thiamine, folate, watch for DTs. * Hemoglobin A1c 5.5 * Lipid panel with cholesterol 233, LDL 123, HDL 49 and triglycerides 300. Continue high-dose Lipitor. * Recommended abstinence from alcohol and substance use. Tobacco cessation.
[2021-12-23] MEDS: LORazepam 1 MG/0.5 ML VIAL IV PRN (14:33)
[2021-12-23 14:39] VITALS: PULSE 78
--- NOTE | 2021-12-23 20:15 | P.PN ---
Progress Note - Text Progress Note Date: 12/23/21 Patient was seen earlier today for psychiatry consult and recommendations discussed with nurse. Full note to follow.
--- NOTE | 2021-12-23 20:31 | P.DS ---
Providers Date of admission: 12/21/21 00:08 Attending physician: Malcolm Smith Consults: 12/20/21 23:38 Consult Physician Routine Consulting Provider: Ej Freire Consult Reason/Comments: fahad Do you want consulting provider notified?: Yes Consult Physician Urgent Consulting Provider: Hazel Terrazas Consult Reason/Comments: sz Do you want consulting provider notified?: Yes 12/21/21 06:51 Consult Physician Routine Consulting Provider: Ronen Ayala Consult Reason/Comments: Syncope with abnormal EKG Do you want consulting provider notified?: Yes 12/23/21 06:50 Consult Physician Routine Consulting Provider: Christa Dent Consult Reason/Comments: abnormal MRI, CEA Do you want consulting provider notified?: Yes 12/23/21 10:54 Consult Physician Routine Consulting Provider: Jasiel Schneider Consult Reason/Comments: Needs follow-up Alcoholic, withdrawn Do you want consulting provider notified?: Yes Primary care physician: [facility] Course: Please note the patient was not discharged but left AMA, signed out by his next of kin AGAINST MEDICAL ADVICE After morning rounds today I got a phone call from the floor nurse Emily the patient has already left AMA (AGAINST MEDICAL ADVICE ) with his . As per her, Patient started getting agitated and he was getting angry and he wanted to leave and go home, he was provided with Ativan per CIWA protocol which did not help, then his was contacted and she came to the floor, patient at that time was still agitated and was informed by Emily that he was going into alcohol withdrawal and he cannot understand concept appropriately, upon insistence of the patient and to leave the hospital, Emily and the nurse supervisor chlorine liquefaction informed the patient she should sign him out AMA with her being fully responsible on him and his health if she wants him to leave the hospital as she is his next of kin and she knows his wishes best, confirmed she wanted to sign him out AMA and that she will take all the responsibility for him and his health, risks and benefits and alternatives are explained for the by staff per protocol including but not limited to the risk of seizure, injury which could be permanent loss of function, delirium tremens and/or . Eventually the signed the paper which was witnessed by 2 nurses and she and her left the hospital Before I have a chance to meet him or talk to him again. these are new changes happened after I saw the patient this am. During my morning rounds, patient was very calm and appropriate, he was lying in bed and covered with bed sheets but not his face like yesterday, he was looking tired but awake alert and oriented to time place and person. He was calm and not going through withdrawal symptoms and his CIWA scores checked in the morning was 0. He denied depression, suicidal or homicidal or hallucination symptoms to me but because of his alcohol problem and withdrawal then psychiatric follow-up was requested as they have evaluated him on admission when he was sleeping, this was still pending when patient left AMA Please refer to progress notes from today for more details Patient Condition at Discharge: Serious Plan - Discharge Summary Discharge Rx Participant: No New Discharge Prescriptions: No Action traZODone HCL [Desyrel] 100 mg PO HS DULoxetine HCL [Cymbalta] 60 mg PO BID Nitroglycerin Sl Tabs [Nitrostat] 0.4 mg SUBLINGUAL Q5M PRN PRN Reason: Chest Pain Budesonide/Formoterol Fumarate [Symbicort 160-4.5 Mcg Inhaler] 2 puff INHALATION RT-BID PRN PRN Reason: Shortness Of Breath Albuterol Sulfate [Proair Hfa] 2 puff INHALATION RT-Q6H PRN PRN Reason: Shortness Of Breath traMADol HCL 50 mg PO TID PRN PRN Reason: Pain Aspirin 162 mg PO DAILY 30 Days #60 tab Nicotine 14Mg/24Hr Patch [Habitrol] 1 patch TRANSDERM DAILY #20 patch Famotidine [Pepcid] 20 mg PO BID 15 Days #30 tab Clopidogrel [Plavix] 75 mg PO DAILY 30 Days #30 tab Tiotropium 2.5 Mcg/Puff [Spiriva Respimat 2.5 Mcg] 2 puff INHALATION RT-DAILY PRN PRN Reason: Shortness Of Breath Pregabalin [Lyrica] 75 mg PO BID Atorvastatin [Lipitor] 80 mg PO DAILY 30 Days #30 tab HYDROcodone/APAP 5-325MG [[place] 5-325] 1 each PO Q4HR PRN #9 tab PRN Reason: Pain Acetaminophen Tab [Tylenol] 650 mg PO Q4HR PRN tab PRN Reason: Pain Thiamine [Vitamin B-1] 100 mg PO DAILY #30 tab Discharge Medication List traZODone HCL [Desyrel] 100 mg PO HS 09/28/15 [History] DULoxetine HCL [Cymbalta] 60 mg PO BID 11/13/16 [History] Budesonide/Formoterol Fumarate [Symbicort 160-4.5 Mcg Inhaler] 2 puff INHALATION RT-BID PRN 10/14/17 [History] Nitroglycerin Sl Tabs [Nitrostat] 0.4 mg SUBLINGUAL Q5M PRN 10/14/17 [History] Albuterol Sulfate [Proair Hfa] 2 puff INHALATION RT-Q6H PRN 04/15/21 [History] Tiotropium 2.5 Mcg/Puff [Spiriva Respimat 2.5 Mcg] 2 puff INHALATION RT-DAILY PRN 04/15/21 [History] Pregabalin [Lyrica] 75 mg PO BID 12/01/21 [History] traMADol HCL 50 mg PO TID PRN 12/01/21 [History] Acetaminophen Tab [Tylenol] 650 mg PO Q4HR PRN tab 12/08/21 [Rx] Aspirin 162 mg PO DAILY 30 Days #60 tab 12/08/21 [Rx] Atorvastatin [Lipitor] 80 mg PO DAILY 30 Days #30 tab 12/08/21 [Rx] Clopidogrel [Plavix] 75 mg PO DAILY 30 Days #30 tab 12/08/21 [Rx] Famotidine [Pepcid] 20 mg PO BID 15 Days #30 tab 12/08/21 [Rx] HYDROcodone/APAP 5-325MG [Wolford 5-325] 1 each PO Q4HR PRN #9 tab 12/08/21 [Rx] Nicotine 14Mg/24Hr Patch [Habitrol] 1 patch TRANSDERM DAILY #20 patch 12/08/21 [Rx] Thiamine [Vitamin B-1] 100 mg PO DAILY #30 tab 12/08/21 [Rx] Follow up Appointment(s)/Referral(s): Joao Lopez DO [Primary Care Provider] - 1-2 days Discharge/Stand Alone Forms: AA Meetings [place], Who Do I Call?, Community Resources, Outpatient Counseling, Inp Substance Abuse Facilities, 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
--- NOTE | 2021-12-23 23:07 | EEG ---
ELECTROENCEPHALOGRAM REPORT DATE OF PROCEDURE: 12/23/2021 PREAMBLE: This is a 56-year-old male with new onset seizure. This study is performed to evaluate for any epileptiform activity, rule out partial status. EEG FINDINGS: This is a 21-channel digital EEG recorded with video component, utilizing 10/20 international system with referential and bipolar montages. Background consists of well-developed, but disorganized, mixed frequencies of some alpha and theta activity between 7 to 8 Hz, intermixed with moderate to high amplitude 2 to 3 Hz delta activity seen in bihemispheric region. Background does not seem to be reactive to eye opening or closing. Photic driving response was not seen. Some technical artifact was seen in the left temporal region. No definitive focal or generalized epileptiform activity was seen. IMPRESSION: This is an abnormal EEG due to background disorganization and mild slowing. This is of generalized cerebral dysfunction as can be seen with encephalopathy of toxic metabolic, vascular causes or medication effect. No definitive epileptiform activity was seen. MMODL / IJN: [id number] /
--- NOTE | 2021-12-24 18:18 | P.CN ---
Psychiatric Consult - . Consult date: 12/23/21 Consult:: IDENTIFYING DATA: This patient is a 56 year old male with history of alcohol use disorder. REASON FOR REFERRAL: Psychiatry was consulted for "needs follow-up, alcoholic, withdrawn" HISTORY OF PRESENT ILLNESS: The patient presented to the hospital 12/20/2021 due to alcohol withdrawal and seizure. Psychiatrist attempted to see him on 12/21/21 however patient was asleep and no arousable to participate in assessment. On my assessment today, patient is alert, oriented, but with irritable mood. He denies depressed mood or anxiety. He denies suicidal or homicidal ideations, intent or plan. Patient denies any auditory, visual hallucinations and denies any paranoia or delusions. Patients admits to using drinking "a couple beers a day". He appears to be utilizing the defense mechanism of denial and minimization in regards to his alcohol use. He reports smoking 1 ppd. He denies any other illicit drug use, however per chart he has used marijuana. His urine drug screen on 12/20/21 is positive for opiates, amphetamines/methamphetamines and marijuana. He declines referral to residential substance abuse treatment. He states he wants to go home and he can go to outpatient treatment. PAST PSYCHIATRIC HISTORY: Patient has a history of alcohol abuse. Patient denies being on any psychiatric medications, but per chart is prescribed Cymbalta and Trazodone. Patient denies any previous psychiatric hospitalizations. Patient denies any psychiatric outpatient follow-up. Patient denies any history of suicide attempts in the past. 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 CHEMICAL DEPENDENCY HISTORY: as per HPI. FAMILY PSYCHIATRIC/SUBSTANCE USE HISTORY: Denies SOCIAL HISTORY: Lives with his , daughter and grandson. MENTAL STATUS EXAM: General Appearance: Patient appears to be stated age, has fair hygiene and grooming wearing hospital gown with good eye contact. Behavior: Patient is irritable without any agitated behavior. Speech: Patient's speech is fluent and non-pressured. Mood/Affect: Patient reports their mood is "fine" however is irritable, affect is congruent Suicidality/Homicidality: Patient denies having any suicidal or homicidal ideation intent or plan. Perceptions: Patient denies any visual hallucinations and denies any auditory hallucinations. Though content/process: There is no evidence of any delusional thought content and thought process is linear and goal-directed. Memory and concentration: AOX3, grossly intact for the purposes of this session. Judgment and insight: Fair, poor in regards to substance abuse. IMPRESSIONS: Unspecified mood disorder, rule out substance induced mood disorder Alcohol use disorder with likely alcohol-withdrawal seizure Rule out cannabis use disorder Rule out methamphetamine use disorder Tobacco use disorder PLAN: -At this time patient DOES NOT meet criteria for inpatient psychiatric admission. -Would recommend the following medication changes/additions: Continue home medications: Cymbalta 60 mg BID for depression and Trazodone 100 mg QHS. -radio survey worker to provide patient with outpatient mental health/psychiatry resources for appropriate follow up upon discharge. -Project Geologist spoke with patient about substance abuse and the harmful effects on medical and mental health, patient was dismissive. -radio survey worker to provide patient substance use treatment resources including AA/NA meetings in the community. -Communicated plan to patient's nurse -Psychiatry will sign off at this time -Please contact with any questions. 12/23/21 11:39 12/24/21 18:04
== END 2021-12-23 15:59 | disposition left against medical advice (07) | DRG 100 ==
LOC: EC 19:00 → 3SCARD 12-21 00:08
PROVIDERS: ADMIT Hospitalist; ATTEND Hospitalist
PROC: HZ2ZZZZ Detoxification Services for Substance Abuse Treatment (ICD-10-PCS; 2021-12-21)
PROC: 4A10X4Z Monitoring of Central Nervous Electrical Activity, External Approach (ICD-10-PCS; principal; 2021-12-23)
DX: R56.9 Unspecified convulsions (principal); G92.8 Other toxic encephalopathy; F10.239 Alcohol dependence with withdrawal, unspecified; G81.94 Hemiplegia, unspecified affecting left nondominant side; F17.210 Nicotine dependence, cigarettes, uncomplicated; F32.A Depression, unspecified; Z71.6 Tobacco abuse counseling; Z71.41 Alcohol abuse counseling and surveillance of alcoholic; Z71.51 Drug abuse counseling and surveillance of drug abuser; J44.9 Chronic obstructive pulmonary disease, unspecified; D64.9 Anemia, unspecified; E78.5 Hyperlipidemia, unspecified; F15.10 Other stimulant abuse, uncomplicated; F12.10 Cannabis abuse, uncomplicated; F11.10 Opioid abuse, uncomplicated; I65.21 Occlusion and stenosis of right carotid artery; M79.7 Fibromyalgia; I10 Essential (primary) hypertension; I25.10 Atherosclerotic heart disease of native coronary artery without angina pectoris; I25.2 Old myocardial infarction; Z53.29 Procedure and treatment not carried out because of patient's decision for other reasons; Z79.02 Long term (current) use of antithrombotics/antiplatelets; Z79.51 Long term (current) use of inhaled steroids; Z79.82 Long term (current) use of aspirin; Z79.899 Other long term (current) drug therapy; Z86.73 Personal history of transient ischemic attack (TIA), and cerebral infarction without residual deficits; Z95.5 Presence of coronary angioplasty implant and graft; T42.4X5A Adverse effect of benzodiazepines, initial encounter; X58.XXXA Exposure to other specified factors, initial encounter
CPT/HCPCS: 36415; 70450; 70496; 70498; 70551; 71046; 80048; 80053; 80076; 80306; 80320; 81001; 82607; 82746; 83036; 83735; 84439; 84443; 84484; 85025; 85379; 85610; 85730; 93005; 93308; 95816; 96361; 96365; 96366; 96375; 96376; 99285

== ENCOUNTER 2024-10-14 03:03 | Emergency (ER) | payer OTHER ==
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
[2024-10-14] MEDS: ACETAMINOPHEN TAB 325 MG TAB PO STA (05:04)
[2024-10-14] MEDS: HYDROmorphone 1 MG/ML 1 ML SYRINGE IM STA (05:05)
--- NOTE | 2024-10-14 05:14 | CT ---
EXAM: CT Head Without Intravenous Contrast CLINICAL HISTORY: ITS.REASON CT Reason: Trauma TECHNIQUE: Axial computed tomography images of the head/brain without intravenous contrast. CTDI is 45.2 mGy and DLP is 1074 mGy-cm. This CT exam was performed using one or more of the following dose reduction techniques: automated exposure control, adjustment of the mA and/or kV according to patient size, and/or use of iterative reconstruction technique. COMPARISON: No relevant prior studies available. FINDINGS: Brain: No hemorrhage or mass effect. Ventricles: No hydrocephalus. Bones/joints: Unremarkable. Soft tissues: Unremarkable. Sinuses: No air fluid level. Mastoid air cells: Clear. IMPRESSION: No acute hemorrhage, hydrocephalus, or mass effect. EXAM: CT Cervical Spine Without Intravenous Contrast CLINICAL HISTORY: ITS.REASON CT Reason: Trauma TECHNIQUE: Axial computed tomography images of the cervical spine without intravenous contrast. CTDI is 10.3 mGy and DLP is 318.7 mGy-cm. This CT exam was performed using one or more of the following dose reduction techniques: automated exposure control, adjustment of the mA and/or kV according to patient size, and/or use of iterative reconstruction technique. COMPARISON: No relevant prior studies available. FINDINGS: Vertebrae: No acute fracture. Prior laminectomies. Discs/spinal canal/neural foramina: degenerative changes. Soft tissues: No prevertebral swelling. IMPRESSION: No acute fracture or subluxation.
[2024-10-14 05:35] VITALS: BP 118/79; PULSE 74; RESP 18; TEMP 97.7
== END 2024-10-14 05:35 | disposition home or self-care (01) ==
LOC: EC 03:03
DX: S09.90XA Unspecified injury of head, initial encounter (principal); G44.309 Post-traumatic headache, unspecified, not intractable; F17.200 Nicotine dependence, unspecified, uncomplicated; Y04.0XXA Assault by unarmed brawl or fight, initial encounter
CPT/HCPCS: 72125; 70450; 99284; 96372; J1171